=== PATIENT | female | born 1935 ===

== ENCOUNTER 2016-09-07 02:56 | Inpatient (IN) | payer MEDICARE ==
[2016-09-07 02:56] VITALS: BMI 23.8
--- NOTE | 2016-09-07 03:04 | C.PDOC ---
History Of Present Illness pt went to bed around 12:30 - 1 am. checked on her around 2:30 AM and found the pt with left arm weakness, left facial droop slurred speech and vomitus, Denies any cp. Pt has improved in the ed. Moves all extremities and speech is improved as well Time Seen by Provider: 09/07/16 03:04 History Per: Family History/Exam Limitations: no limitations Onset/Duration Of Symptoms: Hrs Current Symptoms Are (Timing): Better Severity: Moderate Pain Scale Rating Of: 5 Past Medical History Reviewed: Historical Data, Nursing Documentation, Vital Signs Vital Signs: Last Vital Signs Temp 100.0 F H 09/07/16 04:42 Pulse 105 H 09/07/16 05:43 Resp 16 09/07/16 05:43 BP 118/54 L 09/07/16 05:43 Pulse Ox 98 09/07/16 05:43 Family History: States: No Known Family Hx Review Of Systems Constitutional: Negative for: Fever, Chills Eyes: Negative for: Redness ENT: Negative for: Throat Pain Cardiovascular: Negative for: Chest Pain, Palpitations Respiratory: Negative for: Shortness of Breath Gastrointestinal: Positive for: Nausea, Vomiting. Negative for: Abdominal Pain Genitourinary: Negative for: Dysuria Musculoskeletal: Negative for: Back Pain Skin: Negative for: Rash, Lesions, Jaundice Neurological: Positive for: Weakness, Change in Speech Psych: Negative for: Anxiety Physical Exam - Physical Exam Appears: Non-toxic Skin: Warm, Dry Head: Atraumatic, Normacephalic Eye(s): bilateral: Normal Inspection, PERRL, EOMI Oral Mucosa: Moist Tongue: Normal Appearing Neck: Trachea Midline, Supple Chest: Symmetrical Cardiovascular: Rhythm Regular Respiratory: No Rales, No Rhonchi, No Wheezing Gastrointestinal/Abdominal: Soft, No Tenderness, No Distention Back: Normal Inspection Extremity: No Pedal Edema Extremity: Bilateral: Atraumatic, Normal Color And Temperature, Normal ROM Neurological/Psych: Oriented x3 Gait: Unable To Assess ED Course And Treatment - Laboratory Results Result Diagrams: 09/07/16 03:38 09/07/16 03:38 ECG: Interpreted By Me, Viewed By Me ECG Rhythm: Nonspecific Changes Pulse Ox Interpretation: Normal - Radiology CXR: Interpreted by Me, Viewed By Me CXR Interpretation: Yes: Cardiomegaly, Other (poss rll infiltrate) Progress Note: code stroke called Critical Care Time - Critical Care Note Total Time (in mins): 30 Documented critical care: time excludes all time spent performing seperately billable procedures. NIHSS Stroke Scale - Date/Time Evaluation Performed Date Performed: 09/07/16 Time Performed: 03:00 When Was NIHSS Performed: Baseline - How Severe is the Stroke Level of Consciousness: 0=Alert LOC to Questions: 0=Both comments correct LOC to commands: 0=Obeys both correctly Best Gaze: 0=Normal Visual: 0=No visual loss Facial: 1=Minor asymmetry Motor Arm - Left: 1=Drift noted before 10 sec Motor Arm - Right: 0=No drift Motor Leg - Left: 0=No drift Motor Leg - Right: 0=No drift Limb Ataxia: 0=Absent Sensory: 0=Normal Best Language: 0=No aphasia Dysarthia: 1=Mild to moderate slurring Extinction & Inattention (Neglect): 0=Normal, no object Score: 3 Disposition Discussed With : Candelario Rodrigues Comment: accepted the pt on his service and took over the care at 5:45 AM Doctor Will See Patient In The: ED Counseled Patient/Family Regarding: Studies Performed, Diagnosis - Disposition Disposition: HOSPITALIZED Disposition Time: 03:04 Condition: FAIR - POA Present On Arrival: Poor Glycemic Control - Clinical Impression Clinical Impression: TIA (transient ischemic attack), UTI (urinary tract infection), Renal insufficiency Decision To Admit - Pt Status Changed To: Hospital Disposition Of: Inpatient - Admit Certification Admit to Inpatient:: After my assessment, the patient will require hospitalization for at least two midnights. This is because of the severity of symptoms shown, intensity of services needed, and/or the medical risk in this patient being treated as an outpatient. - InPatient: Physician Admission Certification: I certify that this patient requires 2 or more midnights of care for the following reason:: After my assessment, the patient will require hospitalization for at least two midnights. This is because of the severity of symptoms shown, intensity of services needed, and/or the medical risk in this patient being treated as an outpatient. - . Bed Request Type: Telemetry Admitting Physician: Candelario Rodrigues Patient Diagnosis: TIA (transient ischemic attack), UTI (urinary tract infection), Renal insufficiency
[2016-09-07 03:42] LABS: BASO % 0.6 % (0.0-2.0); EOS # 0.1 K/uL (0.0-0.7); EOS % 1.3 % (0.0-4.0); HEMATOCRIT 32.1 % (34.0-47.0); LYMPH # 1.1 K/uL (1.0-4.3); LYMPH % 14.1 % (20.0-40.0); MEAN CELL VOLUME 98.7 fL (81.0-99.0); MEAN CORPUSCULAR HEMOGLOBIN 33.7 pg (27.0-31.0); MEAN CORPUSCULAR HGB CONC 34.2 g/dL (33.0-37.0); MEAN PLATELET VOLUME 7.5 fL (7.2-11.7); MONO # 0.6 K/uL (0.0-0.8); RED CELL DISTRIBUTION WIDTH 12.9 % (11.5-14.5); WHITE BLOOD COUNT 7.9 K/uL (4.8-10.8)
[2016-09-07 03:50] LABS: POTASSIUM 5.4 mmol/L (3.6-5.2)
[2016-09-07 03:52] LABS: BILIRUBIN,TOTAL 1.2 mg/dL (0.2-1.3)
[2016-09-07 03:53] LABS: CALCIUM 9.2 mg/dl (8.6-10.4)
[2016-09-07 04:04] LABS: TROPONIN I 0.013 ng/mL (0.00-0.120)
[2016-09-07] MEDS ORDERED: Piperacillin/Tazobact 3.375 gm 100 ML IVPB STA (04:41)
[2016-09-07 04:57] LABS: VENOUS BLOOD GAS BASE EXCESS -1.7 mmol/L (0.0-2.0); VENOUS BLOOD GAS PCO2 33 mmHg (40-60); VENOUS BLOOD PH 7.43 (7.32-7.43)
[2016-09-07 05:31] LABS: RBC URINE 175 /hpf (0-3); URINE BILIRUBIN NEGATIVE (NEGATIVE); URINE BLOOD 3+ (NEGATIVE); URINE COLOR Yellow (YELLOW); URINE GLUCOSE (UA) 3+ mg/dL (Normal); URINE KETONE NEGATIVE (NEGATIVE); URINE LEUKOCYTE ESTERASE 2+ Leu/uL (Negative); URINE PROTEIN 2+ mg/dL (NEGATIVE); URINE UROBILINOGEN NORMAL mg/dL (0.2-1.0); WBC URINE 2047 /hpf (0-5)
[2016-09-07] MEDS ORDERED: Piperacillin/Tazobact 3.375 gm 100 ML IVPB ONE (05:34)
--- NOTE | 2016-09-07 05:49 | CP.PCM.HP ---
History of Present Illness - History of Present Illness History of Present Illness: Please note history as per at bedside CC: She couldn't speak HPI: 81 year old female PMHx DM2, hyperlipidemia, hypothyroidism was brought in by EMS that was called by her when he noticed she was altered this AM. Patient's states that around 1:30 the morning of admission he noted that while his was lying down there was vomitus on her shirt [nonbloody nonbilious] and that she was unable to speak and could not move her arms, could not smile, and that her mouth was twisted. Patient was asymptomatic and had eaten a complete dinner an hour or two prior to the episode. She did not have a fall and did not have any LOC or hit her head as per . He reported this is the second time she has had such symptoms; the last "mini stroke" occured a coupe of years ago but did not know exactly when. He also noted that over he past 2-3 days she was having increased urinary frequency but kept complaining of some burning on urination and that her bladder was not emptying properly. Patient's denied noticing any blood in her urine/discharge. Patient was AO x [address] but not to time/age. She denied any chills , diaphoresis, dizziness, lightheadedness, change in vision, change in hearing, sore throat, dysphagia, chest pain, palpitations, SOB, cough, hematemesis, diarrhea, constipation, hematochezia, back pain, rash, bruising, bleeding, travel, sick contacts, change in weight, change in appetite. She admitted to fevers, weakness, frontal headache, abd pain, nausea, one episode of emesis, dysuria, frequency, and b/l leg pain. PMHx: PSHx: carotid endarterectomy by Dr. Thomas ALL: NKDA Medications: as per records Social Hx: denies current alcohol, tobacco, drug abuse. Lives with . 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 Family Hx: denies hx of [place], CVA, cancer PMD: [facility]: Code Stroke called in the ED Present on Admission - Present on Admission Any Indicators Present on Admission: Yes History of Uncontrolled Diabetes: Yes Review of Systems - Constitutional Constitutional: As Per HPI, Fever. absent: Chills - EENT Eyes: As Per HPI. absent: Change in Vision Ears: absent: Tinnitus, Dizziness Nose/Mouth/Throat: As Per HPI. absent: Nasal Discharge, Sore Throat - Cardiovascular Cardiovascular: As Per HPI. absent: Chest Pain, Dyspnea, Edema - Respiratory Respiratory: As Per HPI. absent: Cough, Dyspnea on Exertion, Chest Congestion - Gastrointestinal Gastrointestinal: As Per HPI, Abdominal Pain (lower abdominal pain), Nausea, Vomiting (one episode). absent: Constipation, Diarrhea - Genitourinary Genitourinary: As Per HPI, Dysuria, Urinary Frequency, Voiding Freq/Small Amts, Bladder Distension. absent: Hematuria, Pyuria - Musculoskeletal Musculoskeletal: As Per HPI. absent: Back Pain, Numbness, Tingling - Integumentary Integumentary: As Per HPI. absent: Rash - Neurological Neurological: As Per HPI, Abnormal Speech, Focal Weakness (b/l arms), Headaches (frontal), Weakness. absent: Dizziness, Numbness, Sensory Deficit, Syncope, Tingling - Psychiatric Psychiatric: As Per HPI. absent: Anxiety, Depression - Endocrine Endocrine: As Per HPI, Polyuria. absent: Palpitations, Polydipsia, Polyphagia - Hematologic/Lymphatic Hematologic: As Per HPI. absent: Easy Bleeding, Easy Bruising, Lymphadenopathy Past Patient History - Infectious Disease Hx of Infectious Diseases: None - Past Social History Smoking Status: Never Smoked - CARDIAC Hx Hypercholesterolemia: Yes - ENDOCRINE/METABOLIC Hx Diabetes Mellitus Type 1: Yes Hx Diabetes Mellitus Type 2: Yes Hx Hyperthyroidism: Yes - PSYCHIATRIC Hx Substance Use: No - SURGICAL HISTORY Hx Surgeries: No - ANESTHESIA Hx Anesthesia: No Meds Allergies/Adverse Reactions: Allergies Allergy/AdvReac Type Severity Reaction Status Date / Time No Known Allergies Allergy Verified 09/07/16 03:06 Physical Exam - Constitutional Appears: Non-toxic, No Acute Distress - Head Exam Head Exam: ATRAUMATIC, NORMAL INSPECTION, NORMOCEPHALIC - Eye Exam Eye Exam: EOMI, Normal appearance, PERRL. absent: Conjunctival injection, Scleral icterus Pupil Exam: NORMAL ACCOMODATION, PERRL - ENT Exam ENT Exam: Mucous Membranes Moist - Neck Exam Neck exam: Positive for: Full Rom, Normal Inspection. Negative for: Lymphadenopathy, Tenderness - Respiratory Exam Respiratory Exam: Clear to Auscultation Bilateral, NORMAL BREATHING PATTERN. absent: Accessory Muscle Use, Rales, Rhonchi, Wheezes, Respiratory Distress - Cardiovascular Exam Cardiovascular Exam: Tachycardia, REGULAR RHYTHM, +S1, +S2, Systolic Murmur - GI/Abdominal Exam GI & Abdominal Exam: Normal Bowel Sounds, Soft, Tenderness (lower abdomen). absent: Firm, Guarding, Rigid Additional comments: surgical scar noted - Extremities Exam Extremities exam: Positive for: normal capillary refill, normal inspection, pedal pulses present. Negative for: pedal edema - Back Exam Back exam: NORMAL INSPECTION. absent: rash noted, tenderness Additional comments: abrasions noted - Neurological Exam Neurological exam: Alert (AO x 2), CN II-XII Intact - Psychiatric Exam Psychiatric exam: Normal Affect, Normal Mood - Skin Skin Exam: Dry, Intact, Normal Color, Warm Results - Vital Signs Recent Vital Signs: Last Vital Signs Temp 100.0 F H 09/07/16 04:42 Pulse 105 H 09/07/16 05:43 Resp 16 09/07/16 05:43 BP 118/54 L 09/07/16 05:43 Pulse Ox 98 09/07/16 05:43 - Labs Result Diagrams: 09/07/16 03:38 09/07/16 03:38 Labs: Laboratory Results - last 24 hr 09/07/16 09/07/16 09/07/16 03:38 03:38 03:38 WBC 7.9 RBC 3.25 L Hgb 11.0 Hct 32.1 L MCV 98.7 D MCH 33.7 H MCHC 34.2 RDW 12.9 Plt Count 212 MPV 7.5 Neut % (Auto) 77.0 H Lymph % (Auto) 14.1 L [place] % (Auto) 7.0 Eos % (Auto) 1.3 Baso % (Auto) 0.6 Neut # 6.1 Lymph # 1.1 [place] # 0.6 Eos # 0.1 Baso # 0.0 PT 11.3 INR 1.0 APTT 23 pO2 VBG pH VBG pCO2 VBG HCO3 VBG Total CO2 VBG O2 Sat (Calc) VBG Base Excess VBG Potassium Glucose Lactate Crit Value Called To Crit Value Called By Crit Value Read Back Blood Gas Notified Time Sodium 136 Potassium 5.4 H Chloride 103 Carbon Dioxide 21 L Anion Gap 17 BUN 37 H Creatinine 1.4 H Est GFR ( Amer) 44 Est GFR (Non-Af Amer) 36 Random Glucose 367 H Hemoglobin A1c Calcium 9.2 Total Bilirubin 1.2 AST 25 ALT 23 Alkaline Phosphatase 123 Troponin I 0.0130 Total Protein 8.0 Albumin 3.9 Globulin 4.1 H Albumin/Globulin Ratio 1.0 Triglycerides 127 Cholesterol 142 LDL Cholesterol Direct 83 HDL Cholesterol 27 L Venous Blood Potassium Urine Color Urine Clarity Urine pH Ur Specific [employer] Urine Protein Urine Glucose (UA) Urine Ketones Urine Blood Urine Nitrate Urine Bilirubin Urine Urobilinogen Ur Leukocyte Esterase Urine WBC (Auto) Urine RBC (Auto) Blood Type Antibody Screen 09/07/16 09/07/16 09/07/16 03:38 03:55 04:48 WBC RBC Hgb Hct MCV MCH MCHC RDW Plt Count MPV Neut % (Auto) Lymph % (Auto) [place] % (Auto) Eos % (Auto) Baso % (Auto) Neut # Lymph # [place] # Eos # Baso # PT INR APTT pO2 39 VBG pH 7.43 VBG pCO2 33 L VBG HCO3 23.0 VBG Total CO2 22.9 VBG O2 Sat (Calc) 84.5 H VBG Base Excess -1.7 L VBG Potassium 5.2 Glucose 356 H Lactate 1.5 Crit Value Called To Md sarah browne Crit Value Called By R alert automotive service advisor Crit Value Read Back Y Blood Gas Notified Time 458 Sodium 138.0 Potassium Chloride 108.0 H Carbon Dioxide Anion Gap BUN Creatinine Est GFR ( Amer) Est GFR (Non-Af Amer) Random Glucose Hemoglobin A1c 9.6 H Calcium Total Bilirubin AST ALT Alkaline Phosphatase Troponin I Total Protein Albumin Globulin Albumin/Globulin Ratio Triglycerides Cholesterol LDL Cholesterol Direct HDL Cholesterol Venous Blood Potassium 5.2 Urine Color Urine Clarity Urine pH Ur Specific [employer] Urine Protein Urine Glucose (UA) Urine Ketones Urine Blood Urine Nitrate Urine Bilirubin Urine Urobilinogen Ur Leukocyte Esterase Urine WBC (Auto) Urine RBC (Auto) Blood Type B POSITIVE Antibody Screen Negative 09/07/16 05:23 WBC RBC Hgb Hct MCV MCH MCHC RDW Plt Count MPV Neut % (Auto) Lymph % (Auto) [place] % (Auto) Eos % (Auto) Baso % (Auto) Neut # Lymph # [place] # Eos # Baso # PT INR APTT pO2 VBG pH VBG pCO2 VBG HCO3 VBG Total CO2 VBG O2 Sat (Calc) VBG Base Excess VBG Potassium Glucose Lactate Crit Value Called To Crit Value Called By Crit Value Read Back Blood Gas Notified Time Sodium Potassium Chloride Carbon Dioxide Anion Gap BUN Creatinine Est GFR ( Amer) Est GFR (Non-Af Amer) Random Glucose Hemoglobin A1c Calcium Total Bilirubin AST ALT Alkaline Phosphatase Troponin I Total Protein Albumin Globulin Albumin/Globulin Ratio Triglycerides Cholesterol LDL Cholesterol Direct HDL Cholesterol Venous Blood Potassium Urine Color Yellow Urine Clarity Turbid Urine pH 7.0 Ur Specific [employer] 1.009 Urine Protein 2+ H Urine Glucose (UA) 3+ H Urine Ketones Negative Urine Blood 3+ H Urine Nitrate Negative Urine Bilirubin Negative Urine Urobilinogen Normal Ur Leukocyte Esterase 2+ H Urine WBC (Auto) 2047 H Urine RBC (Auto) 175 H Blood Type Antibody Screen Assessment & Plan - Assessment and Plan (Free Text) Assessment: 81 year old female PMHx DM2, hyperlipidemia, hypothyroidism was brought in by EMS that was called by her when he noticed she was altered this AM Plan: TIA vs CVA -f/u Head CT official read -f/u Echo -f/u carotids -f/u vit B12, folate, 25OH vitamin D -Lipid panel WNL -ASA 81mg po daily -Crestor 10mg po hs -NPO -Speech/swallow eval -Fall risk -Aspiration precautions -PT/OT -Neurocheck q4 -f/u Dr Sullivan neurology rec UTI -f/u urine culture -f/u blood culture -Rocephin 1gm ivpb daily -NS @ 80cc/hr -Tylenol for temp prn -f/u CT abdomen/pelvis Uncontrolled DM2 -HgbA1c 9.6 on admission -RISS meduim dose -Accucheck -Glipizide 10mg po bid -Neurontin 300mg po bid -Lantus 15U hs Hx Hypercholesterolemia -Lipid panel WNL on admission -Crestor 10mg po hs Hx Hypothyroidism -f/u TSH and free T4 -Synthroi 100mg po daily PPX -Protonix 40mg ivp daily -SCD -VTE ppx on hold until CT head is read -NPO -Speech/swallow eval -Fall risk -Aspiration precautions -PT/OT -Neurocheck q4 -NS @ 80cc/hr Case discussed with Dr. Ravi Arellano PGY1
--- NOTE | 2016-09-07 07:45 | CT ---
PROCEDURE: CT HEAD WITHOUT CONTRAST. HISTORY: code stroke COMPARISON: 09/08/2012 TECHNIQUE: Axial computed tomography images were obtained through the head/brain without intravenous contrast. Radiation dose: Total exam DLP = 942 mGy-cm. This CT exam was performed using one or more of the following dose reduction techniques: Automated exposure control, adjustment of the mA and/or kV according to patient size, and/or use of iterative reconstruction technique. FINDINGS: HEMORRHAGE: No intracranial hemorrhage. BRAIN: Atrophy. Scattered focal lucencies in the subcortical and periventricular white matter suggestive for chronic microvascular ischemic change. Small hypodensity in the right thalamus and left caudate head suggestive for a lacunar infarct. VENTRICLES: Unremarkable. No hydrocephalus. CALVARIUM: Unremarkable. PARANASAL SINUSES: Unremarkable as visualized. No significant inflammatory changes. MASTOID AIR CELLS: Unremarkable as visualized. No inflammatory changes. OTHER FINDINGS: Study markedly limited by motion artifact. Repeat study may be helpful. Intracranial vascular calcifications noted. IMPRESSION: Study markedly limited by motion artifact. Repeat study may be helpful. Age related atrophy and chronic small vessel ischemic change. 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 If focal neurologic deficit persists, consider MRI. These findings were preliminarily reported at 3:41 a.m. on 09/07/[address] Jaspreet Courtney from [employer]. These findings were relayed to Dr. Gilmore at 3:45 a.m. on 09/07/[address] Jaspreet Courtney.
[2016-09-07] MEDS ORDERED: Sod Polystyrene Sulf 15 gm/60 ml Oral Susp PO ONE (07:49)
--- NOTE | 2016-09-07 09:19 | CP.PCM.PN ---
Subjective - Date & Time of Evaluation Date of Evaluation: 09/07/16 Time of Evaluation: 09:00 - Subjective Subjective: Pt seen and examined at bedside. Pt is comfortable and in no acute distress. She is a little slow in her responses, but is not far from her baseline as per her , who is present at bedside. Pt states that she is feeling better and that she is eating and sleeping well. She complains that the colmenares is uncomfortable and giving her some pain in her lower abdomen. She has no other complaints. Pt denies dizziness, fever, chills, chest pain, palpitations, nausea , vomiting, leg swelling/pain. Objective - Vital Signs/Intake and Output Vital Signs (last 24 hours): Temp Pulse Resp BP Pulse Ox 99.3 F 106 H 18 97/60 L 96 09/07/16 07:35 09/07/16 07:35 09/07/16 07:35 09/07/16 07:35 09/07/16 07:35 - Medications Medications: Current Medications Acetaminophen (Tylenol 325mg Tab) 650 mg PO Q6 PRN PRN Reason: Fever >100.4 F Aspirin (Aspirin Chewable) 81 mg PO DAILY CAMRYN Gabapentin (Neurontin) 300 mg PO BID [facility] Glipizide (Glucotrol) 10 mg PO ACB [facility] Last Admin: 09/07/16 08:57 Dose: 10 mg Ceftriaxone Sodium 1 gm/ (Sodium Chloride) 100 mls @ 100 mls/hr IVPB DAILY [facility]N Sodium Chloride (Sodium Chloride 0.9%) 1,000 mls @ 80 mls/hr IV .[id number] [facility] Insulin Aspart (Novolog) 0 unit SC ACHS [facility] PRN Reason: Protocol Insulin Glargine (Lantus) 15 unit SC HS [facility] Levothyroxine Sodium (Synthroid) 100 mcg PO DAILY@0630 [facility] Pantoprazole Sodium (Protonix Inj) 40 mg IVP DAILY [facility] Rosuvastatin Calcium (Crestor) 10 mg PO HS CAMRYN - Labs Labs: PT 11.3 SECONDS (9.7-12.2) 09/07/16 03:38 INR 1.0 09/07/16 03:38 APTT 23 SECONDS (21-34) 09/07/16 03:38 - Constitutional Appears: Non-toxic, No Acute Distress - Head Exam Head Exam: ATRAUMATIC, NORMOCEPHALIC Additional comments: slight droop at L corner of mouth - Eye Exam Eye Exam: EOMI, Normal appearance. absent: Scleral icterus Pupil Exam: NORMAL ACCOMODATION, PERRL - ENT Exam ENT Exam: Mucous Membranes Moist - Respiratory Exam Respiratory Exam: Clear to Ausculation Bilateral, NORMAL BREATHING PATTERN. absent: Rales, Rhonchi, Wheezes, Respiratory Distress - Cardiovascular Exam Cardiovascular Exam: Tachycardia, REGULAR RHYTHM, +S1, +S2, Murmur Additional comments: holosystolic murmur best heard at R sternal border - GI/Abdominal Exam GI & Abdominal Exam: Soft, Tenderness, Normal Bowel Sounds. absent: Distended, Firm, Guarding Additional comments: suprapubic tenderness - Extremities Exam Extremities Exam: Normal Inspection. absent: Pedal Edema, Tenderness - Neurological Exam Neurological Exam: Alert, Awake, CN II-XII Intact, Normal Gait Neuro motor strength exam: Left Upper Extremity: 5, Right Upper Extremity: 5, Left Lower Extremity: 5, Right Lower Extremity: 5 Additional comments: oriented x 2. Able to state name and that she is in the hospital. Unable to state the year but can recall the name of the president with some help from the - Psychiatric Exam Psychiatric exam: Normal Affect, Normal Mood - Skin Skin Exam: Dry, Intact, Normal Color, Warm Assessment and Plan - Assessment and Plan (Free Text) Assessment: Assessment: 81 year old female PMHx DM2, hyperlipidemia, hypothyroidism was brought in by EMS that was called by her when he noticed she was altered this AM Plan: TIA vs CVA Symptoms have resolved more likely TIA - Head CT - age related atrophy and chronic small vessel ischemic change. Small lacunar infarcts in the right thalamus and left caudate head. - f/u MRI -f/u Echo -f/u carotid dopplers -f/u vit B12, folate, 25OH vitamin D -Lipid panel WNL -ASA 81mg po daily -Crestor 10mg po hs -Speech/swallow eval - passed bedside swallow eval -Fall risk -Aspiration precautions -PT/OT -Neurocheck q4 -f/u Dr Jeane Flaherty neurology recs UTI -f/u urine culture -f/u blood culture -Rocephin 1gm ivpb daily -NS @ 80cc/hr -Tylenol for temp prn - CT abdomen/pelvis: multiple vascular calcifications within both renal pelvis No evidence of hydronephrosis. Many Clamped colmenares. diverticulosis witout radiologic evidence of diverticulitis. - Discontinue Colmenares Uncontrolled DM2 -HgbA1c 9.6 on admission -RISS medium dose -Accucheck -Glipizide 10mg po bid -Neurontin 300mg po bid -Lantus 15U hs Hx Hypercholesterolemia -Lipid panel WNL on admission -Crestor 10mg po hs Hx Hypothyroidism -f/u TSH and free T4 -Synthroid 100mg po daily PPX -Protonix 40mg ivp daily -SCD -NS @ 80cc/hr
[2016-09-07] MEDS: Sodium Chloride 0.9% 1,000 ML IV SCH (09:23)
--- NOTE | 2016-09-07 10:39 | CT ---
PROCEDURE: CT abdomen and pelvis dated 09/07/2016. HISTORY: r/o nephrolithiasis COMPARISON: Comparison made with renal ultrasound 06/27/2012 TECHNIQUE: Contiguous axial images of the abdomen and pelvis. Oral contrast was administered. No IV contrast given. Coronal and Sagittal reformats generated. Radiation dose: Total exam DLP = 1023.4 mGy-cm. This CT exam was performed using one or more of the following dose reduction techniques: Automated exposure control, adjustment of the mA and/or kV according to patient size, and/or use of iterative reconstruction technique. FINDINGS: LOWER THORAX: Mild bibasilar atelectasis and or scarring changes. Small hiatal hernia with wall thickening of the distal esophagus that could be due to of gastric mucosa. Esophagitis or other intrinsic/invasive wall lesion not excluded. Heart size within range normal. No significant pericardial effusion. Coronary artery calcifications. Calcified mitral valve. LIVER: The liver exhibits normal size measuring nearly 13 cm in CC dimension. No obvious hepatic mass or collection identified on this noncontrast study. GALLBLADDER AND BILE DUCTS: Gallbladder has resected metallic clips in the gallbladder fossa. No gross intrahepatic biliary ductal dilatation. PANCREAS: Pancreas is atrophic and fat replaced. SPLEEN: Spleen exhibits normal size and attenuation pattern. 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 ADRENALS: No adrenal lesions. KIDNEYS AND URETERS: Kidneys demonstrate relatively symmetric size. The multiple small calcifications within both renal hilar most of which are felt to be vascular in origin ; a few tiny nonobstructing calculi cannot completely excluded. No evidence of hydronephrosis . Minor nonspecific infiltration changes within the perinephric fat bilaterally present. BLADDER: In situ unclamped Montanez catheter. Urinary bladder is collapsed about Montanez which presumably accounts for thick-walled appearance however the possibility of cystitis or other intrinsic/ invasive wall lesion (including but not limited to carcinoma such as transitional cell, not excluded. Clinical correlation recommended. Intraluminal urinary bladder likely due to recent instrumentation however infection with gas-forming organism cannot be excluded. . Intra lumen urinary bladder air likely due to instrumentation. REPRODUCTIVE: Uterus appears unremarkable. APPENDIX: Normal-appearing appendix. BOWEL: Evaluation of bowel is limited. Hyperdense material is present within stomach. Visualized loops of small bowel exhibit normal contour and caliber. No evidence acute mechanical small bowel obstruction. . Diverticulosis without radiographic evidence of acute diverticulitis. No definitive abnormal mural wall thickening. PERITONEUM: Unremarkable. No fluid collection. No free air. Small fat containing paraumbilical hernia. LYMPH NODES: No significant abdominal or retroperitoneal adenopathy. VASCULATURE: Unremarkable. No aortic aneurysm. BONES: Mild multilevel degenerative spondylosis of the lower thoracic and lumbar spine OTHER FINDINGS: None. IMPRESSION: There are multiple vascular calcifications within both renal pelves. . A few tiny nonobstructing renal calculi cannot be completely. No evidence hydronephrosis. In situ unclamped Montanez catheter which may in part account thick-walled appearance however cystitis or other intrinsic/invasive wall lesion as indicated above not. Clinical correlation recommended. There is also air within the urinary bladder that may be is recent instrumentation however infection with gas-forming organism not excluded. Status post cholecystectomy. Diverticulosis without radiographic evidence of diverticulitis. Above discussion for additional findings and details.
--- NOTE | 2016-09-07 11:10 | RAD ---
HISTORY: tia COMPARISON: 09/08/2012 FINDINGS: LUNGS: Shallow lung volume more so than before. No consolidation PLEURA: No significant pleural effusion identified, no pneumothorax apparent. CARDIOVASCULAR: Mild cardiomegaly left ventricular enlargement suggested. Pulmonary vasculature appears top consistent with crowding of vessels OSSEOUS STRUCTURES: Thoracic spondylosis and generalized osteopenia VISUALIZED UPPER ABDOMEN: Normal. OTHER FINDINGS: There is a metallic device projecting over the lateral left hemithorax temporal this relates to a light year or this is a cardiac monitoring device no leads going from it are appreciated It is an interval changeEKG leads in place IMPRESSION: Shallow lung volumes. No interval cardiopulmonary pathology seen
[2016-09-07 12:20] LABS: THYROID STIMULATING HORMONE 0.17 mIU/L (0.46-4.68)
[2016-09-07 12:55] LABS: FOLATE 19.5 ng/mL
[2016-09-07] MEDS: (Novolog) Insulin Aspart, Recombinant 100 u/ml 10 ml vial SC SCH ×4 (13:44→21:30)
--- NOTE | 2016-09-07 14:12 | CARD ---
APPROVED REPORT EXAM: Two-dimensional and M-mode echocardiogram with Doppler and color Doppler. Other Information Quality : GoodRhythm : NSR INDICATION CVA/TIA Murmur FEVER UTI RISK FACTORS Hypertension Diabetes M-Mode DIMENSIONS RVDd1.20 (2.1-3.2cm)Left Atrium (MM)3.51 (2.5-4.0cm) IVSd0.75 (0.7-1.1cm)Aortic Root2.66 (2.2-3.7cm) LVDd3.90 (4.0-5.6cm)Aortic Cusp Exc.1.41 (1.5-2.0cm) PWd0.78 (0.7-1.1cm)FS (%) 24 % LVDs2.96 (2.0-3.8cm)LVEF (%)49 (>50%) Aortic Valve AoV Peak Xqfhmtxr655.7cm/Jamel Peak GR.14mmHg Mitral Valve MV E Uyfgdudf205.2cm/sMV A Nsjhlnit68.7cm/sE/A ratio4.1 TDI E/Lateral E'0.0E/Medial E'0.0 Tricuspid Valve TR Peak Wqcdvaob026gx/sTR Peak Gr.39bdMkQHDN22ogEd LEFT VENTRICLE The left ventricle is normal size. There is normal left ventricular wall thickness. The left ventricular function is normal. The left ventricular ejection fraction is within the normal range. About 65% No regional wall motion abnormalities noted. The left ventricular diastolic function is inconclusive. No left ventricle thrombus noted on this study. There is no ventricular septal defect visualized. There is no left ventricular aneurysm. There is no mass noted in the left ventricle. RIGHT VENTRICLE The right ventricle is normal size. There is normal right ventricular wall thickness. The right ventricular systolic function is normal. ATRIA The left atrium size is normal. The right atrium size is normal. The interatrial septum is intact with no evidence for an atrial septal defect. AORTIC VALVE The aortic valve is normal in structure and function. No aortic regurgitation is present. The aortic valve was poorly imaged by the technolgoist and not seen. Peak gradient throught the valve is normal. There is no aortic valvular vegetation. MITRAL VALVE The mitral valve is normal in structure and function. There is no evidence of mitral valve prolapse. There is no mitral valve stenosis. There is no mitral valve regurgitation noted. TRICUSPID VALVE The tricuspid valve is normal in structure and function. There is mild tricuspid valve regurgitation noted. There is no tricuspid valve prolapse or vegetation. There is no tricuspid valve stenosis. PULMONIC VALVE The pulmonary valve is normal in structure and function. There is no pulmonic valvular regurgitation. There is no pulmonic valvular stenosis. GREAT VESSELS The aortic root is normal in size. The ascending aorta is normal in size. The pulmonary artery is normal. The IVC is normal in size and collapses >50% with inspiration. PERICARDIAL EFFUSION The pericardium appears normal. There is no pleural effusion. <Conclusion> Normal LV systolic function Normal Doppler The aortic valve was poorly imaged by the technolgoist and not seen. Peak gradient throught the valve is normal. If murmur is present, elliotl repeat aortic valve assessment.
--- NOTE | 2016-09-07 14:54 | VASCLAB ---
PROCEDURE: HISTORY: r/o stenosis COMPARISON: None available. TECHNIQUE: Grayscale and duplex Doppler evaluation of the cervical carotid and vertebral arteries were performed. The common carotid, carotid bifurcations and cervical Internal Carotid Artery (ICA) and proximal External Carotid Artery (ECA) were evaluated. The vertebral arteries were evaluated for gross patency and flow direction. Report prepared by Jemima Menezes, VANESSA, S FINDINGS: RIGHT CAROTID ARTERIES: 1. Common Carotid Artery: No significant focal plaque formation of the right common carotid artery. Maximum Peak Systolic velocity: 101.6 cm/sec: End-diastolic velocity 20 cm/sec. 2. Carotid Bifurcation: plaque formation. Maximum Peak Systolic velocity: 96.8 cm/sec: End-diastolic velocity 17.6 cm/sec. 3. Internal Carotid Artery: Plaque description: Homogeneous 3.1. Proximal Segment: Peak systolic velocity 153 cm/sec: End-diastolic velocity 30 cm/sec - % stenosis 50-60% 3.2. Middle Segment: Peak systolic velocity 220 cm/sec: End-diastolic velocity 58 cm/sec - % stenosis 60-70% 3.3. Distal Segment: Peak systolic velocity 104 cm/sec: End-diastolic velocity 25 cm/sec - % stenosis 4. External Carotid Artery: No significant focal plaque formation. Peak systolic velocity 244 cm/sec 5. ICA/CCA Ratio: 2.7 LEFT CAROTID ARTERIES: 1. Common Carotid Artery: No significant focal plaque formation of the left common carotid artery. Maximum Peak Systolic velocity: 104 cm/sec: End-diastolic velocity 20 cm/sec. 2. Carotid Bifurcation: plaque formation. Maximum Peak Systolic velocity: 102 cm/sec: End-diastolic velocity 18 cm/sec. 3. Internal Carotid Artery: Plaque description: 3.1. Proximal Segment: Peak systolic velocity 118 cm/sec: End-diastolic velocity 23 cm/sec - % stenosis 3.2. Middle Segment: Peak systolic velocity 121 cm/sec: End-diastolic velocity 25 cm/sec - % stenosis 3.3. Distal Segment: Peak systolic velocity 104 cm/sec: End-diastolic velocity 25 cm/sec - % stenosis 4. External Carotid Artery: No significant focal plaque formation. Peak systolic velocity 151 cm/sec 5. ICA/CCA Ratio: 1.2 VERTEBRAL ARTERIES: 1. Right Vertebral Artery: The right vertebral artery flow direction is antegrade. 2. Left Vertebral Artery: The left vertebral artery flow direction is antegrade. OTHER FINDINGS: 1. Right Brachial Blood pressure: 97 mmHg. 2. Left Brachial Blood pressure: 100 mmHg. IMPRESSION: RIGHT:50-60% stenosis of the proximal and 60-70% stenosis of the mid right internal carotid artery. LEFT: Duplex scan does not suggest hemodynamically significant stenosis of the left extracranial carotid arteries.
--- NOTE | 2016-09-07 17:13 | CON ---
DATE: 09/07/2016 CHIEF COMPLAINT: Altered mental status. 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 Today came in to the hospital because she was noted be altered. It was noticed by the that she was lying down. There was some vomitus on her shirt, was un able to speak and could not move her arms and had generalized weakness. She did not have any fall, d id not lose any consciousness. She was found to have elevated systolic blood pressures and hyperglyc emia of 367 and elevated BUN and creatinine as well as hyperkalemia. She was also found to have a ur inary tract infection. Currently, she is sitting up and moving all extremities fully. No pronator d rift is seen. She is following simple commands. No aphasia noted. MRI brain is currently pending. Carotid Doppler showed right carotid artery, moderate disease and the left side 20% to 39%. PAST MEDICAL HISTORY: Diabetes, hypertension, hyperlipidemia, hyperthyroidism. PAST SURGICAL HISTORY: Carotid endarterectomy. ALLERGIES: No known drug allergies. SOCIAL HISTORY: No illicit drug use, smoking, or EtOH abuse. FAMILY HISTORY: Noncontributory. MEDICATIONS: Reviewed via nurse's reconciliation sheet. REVIEW OF SYSTEMS: A 14-point review of systems is negative except for the HPI. PHYSICAL EXAMINATION: VITAL SIGNS: Temperature of 98.3, pulse rate of 102, blood pressure 152/67, respiratory rate 20, oxy gen saturation 100% via room air. GENERAL: The patient is sitting up in bed in no acute distress. HEENT: Atraumatic, normocephalic. PERRLA. Extraocular muscles intact. NECK: Supple, no JVD, no adenopathy noted. LUNGS: Clear to auscultation. No adventitious sounds. HEART: S1, S2, normal rate and rhythm. No murmurs, rubs, or gallops. ABDOMEN: Soft, nontender, nondistended. Bowel sounds are present. EXTREMITIES: No clubbing, no cyanosis. Peripheral pulses 2+ felt bilaterally. NEUROLOGIC: The patient is alert, oriented to person, place, month and year. Speech is fluent, with out any errors. Cranial nerves II-XII are intact. MOTOR: Moves all extremities equally. Toes downgoing bilaterally. SENSORY: Decreased light touch and pinprick up to the calves bilaterally. DTRs are 1+ and absent at the ankles. COORDINATION: Rcmtvy-ur-fksm intact. GAIT: Deferred for now. LABORATORY DATA: On the UA, leukocyte esterase is 2+ consistent with urinary tract infection. A1c i s 9.6 indicating poorly controlled diabetes. Sodium is 136, potassium 5.4, chloride of 103, carbon d ioxide 21, BUN of 37, creatinine 1.4, random glucose 367. B12 is more than 1000. TSH is 0.72, which is low. ASSESSMENT AND PLAN: This is an 81-year-old woman with history of type 2 diabetes mellitus, hyperten mitzi, hyperthyroidism and carotid artery disease, who presented with altered mental status, was not moving all the extremities and generally lethargic according to the and was unable to get out words and could not move her arms and generalized weakness. She was found to be hyperglycemic w ith hyperkalemia as well as acute on chronic renal insufficiency with an A1c of 9.6 indicating poorly controlled diabetes with hypertensive urgency, in which her blood pressures have transiently dropped too fast, which was today 97/60 making her fairly drowsy. Currently, her neuro exam is nonfocal. S he has diabetic peripheral neuropathy on examination, is very deconditioned. No pronator drift is se en. No neurological signs presenting to her stroke at this time. Her altered mental status is likel y secondary to a metabolic type of encephalopathy, superimposed underlying urinary tract infection. She had hyperkalemia and elevated BUN and creatinine and hyperglycemic accelerations causing her to b e generally weak and altered and causing difficulty getting out words. It could be a questionable tr ansient ischemic event. At this time, recommend: 1. Continue with aspirin 81 mg and Crestor 10 mg for stroke prevention. 2. Keep the blood glucose levels between 141-180 and give diabetic education and prevent hyperglycem ic accelerations the patient. 3. Continue with gabapentin 300 mg p.o. b.i.d. for neuropathic pain relief. 4. Physical and occupational therapy and likely will benefit from subacute rehab. MRI of the brain is currently pending. Please continue with current present medical management. No further neurologi billy workup needed at this time. Thank you for this consult. Please reconsult if necessary. T Tay Flaherty MD cc: [id number] TT: 09/07/2016 17:12:55 Confirmation # [id number] Dictation # [id number] mn
--- NOTE | 2016-09-07 20:24 | CT ---
EXAM: CT Head Without Intravenous Contrast CLINICAL HISTORY: 81 years old, female; Signs and symptoms; Altered mental status/memory loss; Patient HX: F/u code stroke on 09/07/16. At 400 am; Additional info: Change mental status TECHNIQUE: Axial computed tomography images of the head/brain without intravenous contrast. This CT exam was performed using one or more of the following dose reduction techniques: automated exposure control, adjustment of the mA and/or kV according to patient size, and/or use of iterative reconstruction technique. COMPARISON: CT - HEAD W/O (CODE STROKE) 09/07/2016 3:18:57 AM FINDINGS: Brain: Prominence of the sulci and ventricular system consistent with atrophy. Diffuse hypodensity noted throughout the white matter consistent with chronic small vessel disease. No intracranial mass, mass effect, or midline shift. No hemorrhage. Ventricles: No hydrocephalus. Bones/joints: Unremarkable. No acute fracture. Soft tissues: Unremarkable. Sinuses: Unremarkable as visualized. No acute sinusitis. Mastoid air cells: Unremarkable as visualized. No mastoid effusion. IMPRESSION: No acute intracranial abnormality.
[2016-09-07] MEDS: (Lantus) Insulin Glargine, Recombinant SC SCH (22:00)
[2016-09-08] MEDS: Levothyroxine 100 MCG TAB PO SCH (06:35)
[2016-09-08 08:24] LABS: BASO # 0.1 K/uL (0.0-0.2); BASO % 0.6 % (0.0-2.0); EOS # 0.1 K/uL (0.0-0.7); HEMATOCRIT 28.3 % (34.0-47.0); LYMPH % 19.1 % (20.0-40.0); MEAN CORPUSCULAR HEMOGLOBIN 33.9 pg (27.0-31.0); MEAN CORPUSCULAR HGB CONC 33.7 g/dL (33.0-37.0); MEAN PLATELET VOLUME 7.6 fL (7.2-11.7); MONO # 0.9 K/uL (0.0-0.8); MONO % 8.9 % (0.0-10.0); RED CELL DISTRIBUTION WIDTH 13.2 % (11.5-14.5); WHITE BLOOD COUNT 10.5 K/uL (4.8-10.8)
[2016-09-08 08:25] LABS: MEAN CELL VOLUME 100.7 fL (81.0-99.0)
[2016-09-08] MEDS: (Novolog) Insulin Aspart, Recombinant 100 u/ml 10 ml vial SC SCH ×4 (08:34→21:22)
[2016-09-08 08:42] LABS: POTASSIUM 3.8 mmol/L (3.6-5.2)
[2016-09-08 08:45] LABS: ALB/GLOB RATIO 0.9 (1.0-2.1); PHOSPHOROUS 4.1 mg/dL (2.5-4.5); TOTAL PROTEIN 6.6 g/dL (6.3-8.3)
[2016-09-08 08:46] LABS: CALCIUM 8.2 mg/dl (8.6-10.4); MAGNESIUM 2.3 mg/dL (1.6-2.3)
--- NOTE | 2016-09-08 12:25 | CP.PCM.PN ---
<Lizabeth Rogel - Last Filed: 09/08/16 14:38> Subjective - Date & Time of Evaluation Date of Evaluation: 09/08/16 Time of Evaluation: 07:35 - Subjective Subjective: Pt seen and examined at bedside. Pt is comfortable and in no acute distress. She is a little slow in her responses, but is not far from her baseline as per her , who is present at bedside. She was a lot more responsive and answering questions this morning. Pt states that she is feeling better today. She has no other complaints and states that she does not have any burning with urination. She is able to urinate well. Pt denies dizziness, fever, chills, chest pain, palpitations, nausea, vomiting, leg swelling/pain. The patient's was able to call the sound system installer who placed the loop recorder for the patient. It is [email or web address] and is MRI safe according to their office. Patient will have an MRI of the head done today. Objective - Vital Signs/Intake and Output Vital Signs (last 24 hours): Temp Pulse Resp BP Pulse Ox 99.3 F 95 H 18 134/70 96 09/08/16 07:25 09/08/16 07:25 09/08/16 07:25 09/08/16 07:25 09/08/16 07:25 Intake and Output: 09/08/16 09/08/16 06:59 18:59 Intake Total 640 Balance 640 - Medications Medications: Current Medications Acetaminophen (Tylenol 325mg Tab) 650 mg PO Q6 PRN PRN Reason: Fever >100.4 F Aspirin (Aspirin Chewable) 81 mg PO DAILY [facility] Last Admin: 09/08/16 10:43 Dose: Not Given Gabapentin (Neurontin) 300 mg PO BID [facility] Last Admin: 09/08/16 10:43 Dose: Not Given Glipizide (Glucotrol) 10 mg PO ACB [facility] Last Admin: 09/08/16 08:32 Dose: Not Given Ceftriaxone Sodium 1 gm/ (Sodium Chloride) 100 mls @ 100 mls/hr IVPB DAILY [facility] Last Admin: 09/08/16 10:49 Dose: 100 mls/hr Sodium Chloride (Sodium Chloride 0.9%) 1,000 mls @ 80 mls/hr IV .[id number] [facility] Last Admin: 09/07/16 09:23 Dose: 80 mls/hr Insulin Aspart (Novolog) 0 unit SC [facility] PRN Reason: Protocol Last Admin: 09/08/16 08:34 Dose: Not Given Insulin Glargine (Lantus) 15 unit SC [facility] Last Admin: 09/07/16 22:00 Dose: Not Given Levothyroxine Sodium (Synthroid) 100 mcg PO DAILY@0630 [facility] Last Admin: 09/08/16 06:35 Dose: Not Given Pantoprazole Sodium (Protonix Inj) 40 mg IVP DAILY [facility] Last Admin: 09/08/16 10:48 Dose: 40 mg Rosuvastatin Calcium (Crestor) 10 mg PO [facility] Last Admin: 09/07/16 22:00 Dose: Not Given - Labs Labs: 09/08/16 08:15 09/08/16 08:15 PT 11.3 SECONDS (9.7-12.2) 09/07/16 03:38 INR 1.0 09/07/16 03:38 APTT 23 SECONDS (21-34) 09/07/16 03:38 - Constitutional Appears: Non-toxic, No Acute Distress - Head Exam Head Exam: ATRAUMATIC, NORMAL INSPECTION - Eye Exam Eye Exam: EOMI, Normal appearance, PERRL Pupil Exam: NORMAL ACCOMODATION - ENT Exam ENT Exam: Mucous Membranes Moist - Respiratory Exam Respiratory Exam: Clear to Ausculation Bilateral, NORMAL BREATHING PATTERN. absent: Accessory Muscle Use, Decreased Breath Sounds, Respiratory Distress - Cardiovascular Exam Cardiovascular Exam: REGULAR RHYTHM, +S1, +S2 Additional comments: loop recorder in place under skin - GI/Abdominal Exam GI & Abdominal Exam: Soft, Normal Bowel Sounds. absent: Distended, Firm, Guarding, Tenderness - Extremities Exam Extremities Exam: Normal Inspection. absent: Calf Tenderness, Pedal Edema - Back Exam Back Exam: NORMAL INSPECTION. absent: CVA tenderness (L), CVA tenderness (R) - Neurological Exam Neurological Exam: Alert, Awake. absent: Normal Gait, Oriented x3 Neuro motor strength exam: Left Upper Extremity: 3, Right Upper Extremity: 4, Left Lower Extremity: 4, Right Lower Extremity: 4 - Psychiatric Exam Psychiatric exam: Normal Affect, Normal Mood - Skin Skin Exam: Dry, Intact, Normal Color, Warm Assessment and Plan - Assessment and Plan (Free Text) Assessment: 81 year old female PMHx DM2, hyperlipidemia, hypothyroidism was brought in by EMS that was called by her when he noticed she was altered this AM Plan: TIA vs CVA Symptoms have resolved more likely TIA, per neurology symptoms most likely due to UTI and hyperglycemia - Head CT - age related atrophy and chronic small vessel ischemic change. Small lacunar infarcts in the right thalamus and left caudate head. -f/u MRI - Patient hss a loop recorder in place - is MRI compatible - Echo: normal LV systolic function, normal doppler, AValve poorly assessed, if murmur is present would repeat aortic valve assessment - Patient does have a systolic murmur, will repeat echo for better visualization of aortic valve -vit B12 >1000, folate 19.5, 25OH vitamin D 37.5 -Lipid panel WNL -ASA 81mg po daily -Crestor 10mg po hs -Fall risk protocol and Aspiration precautions -PT/OT -Neurocheck q4 -Dr Jeane Flaherty consulted help appreciated - stable from neuro, continue ASA and crestor daily UTI -Afebrile, no leukocytosis - Urine culture pelim: gram negative rods -blood culture prelim negative for 24 hours -Rocephin 1gm ivpb daily (started 09/07) - Florastor -NS @ 80cc/hr -Tylenol for temp prn - CT abdomen/pelvis: multiple vascular calcifications within both renal pelvis No evidence of hydronephrosis. Many Clamped colmenares. diverticulosis witout radiologic evidence of diverticulitis. - UA 2047 WBC, 2+ Leuk esterase Carotid Stenosis - carotid dopplers: 50-60% proximal and 60-70% mind internal cartoid stenosis - Had CEA surgery in the past with Dr. Thomas - Dr. Thomas consulted help appreciated Uncontrolled DM2 -HgbA1c 9.6 on admission -RISS medium dose -Accucheck -Glipizide 10mg po bid -Neurontin 300mg po bid -Lantus 15U hs Hx Hypercholesterolemia -Lipid panel WNL on admission -Crestor 10mg po hs Hx Hypothyroidism - TSH 0.17 - Free T4 1.98 -Synthroid 100mg po daily, consider lowering the dose PPX -Protonix 40mg ivp daily -SCD -NS @ 80cc/hr - Purreed nectar thick diet per swallow eval <Aiyana Salinas V - Last Filed: 09/08/16 19:23> Objective - Vital Signs/Intake and Output Vital Signs (last 24 hours): Temp Pulse Resp BP Pulse Ox 99.1 F 91 H 18 128/57 L 97 09/08/16 15:47 09/08/16 16:00 09/08/16 15:47 09/08/16 15:47 09/08/16 15:47 Intake and Output: 09/08/16 09/08/16 06:59 18:59 Intake Total 640 Balance 640 - Medications Medications: Current Medications Acetaminophen (Tylenol 325mg Tab) 650 mg PO Q6 PRN PRN Reason: Fever >100.4 F Aspirin (Aspirin Chewable) 81 mg PO DAILY [facility] Last Admin: 09/08/16 10:43 Dose: Not Given Gabapentin (Neurontin) 300 mg PO BID [facility] Last Admin: 09/08/16 18:24 Dose: 300 mg Glipizide (Glucotrol) 10 mg PO ACB [facility] Last Admin: 09/08/16 08:32 Dose: Not Given Ceftriaxone Sodium 1 gm/ (Sodium Chloride) 100 mls @ 100 mls/hr IVPB DAILY [facility] Last Admin: 09/08/16 10:49 Dose: 100 mls/hr Sodium Chloride (Sodium Chloride 0.9%) 1,000 mls @ 80 mls/hr IV .[id number] [facility] Last Admin: 09/07/16 09:23 Dose: 80 mls/hr Insulin Aspart (Novolog) 0 unit SC [facility] PRN Reason: Protocol Last Admin: 09/08/16 18:24 Dose: 3 unit Insulin Glargine (Lantus) 15 unit SC [facility] Last Admin: 09/07/16 22:00 Dose: Not Given Levothyroxine Sodium (Synthroid) 100 mcg PO DAILY@0630 [facility] Last Admin: 09/08/16 06:35 Dose: Not Given Pantoprazole Sodium (Protonix Inj) 40 mg IVP DAILY [facility] Last Admin: 09/08/16 10:48 Dose: 40 mg Rosuvastatin Calcium (Crestor) 10 mg PO HS [facility] Last Admin: 09/07/16 22:00 Dose: Not Given - Labs Labs: 09/08/16 08:15 09/08/16 08:15 PT 11.3 SECONDS (9.7-12.2) 09/07/16 03:38 INR 1.0 09/07/16 03:38 APTT 23 SECONDS (21-34) 09/07/16 03:38 Attending/Attestation - Attestation I have personally seen and examined this patient.: Yes I have fully participated in the care of the patient.: Yes I have reviewed all pertinent clinical information, including history, physical exam and plan: Yes Notes (Text): Patient seen, examined, and case discussed with day-time resident. Patient seen this afternoon, appears very awake, and alert, talkative. Patient' s brother and sister in law present at bedside; pt permits us to speak in front of her family. She reports she is feeling much better and as per family at bedside appears to be improving. patient completed MRI this morning. Patient evaluated by swallow eval this morning and started back on diet. Pending official urine culture. Assessment/Plan 1) Metabolic Encephalopathy * Neurology (Dr. Jeane Flaherty) on board help appreciated * MRI Brain (09/08/16): no acute intracranial hemorrhage. Extensive chronic white matter ischemic changes. Moderate volume loss. * CT Head (09/07/16): no acute intracranial abnormality * CT Head (09/07/16): age related atrophy and chronic small vessel ischemic change. 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; Left does not suggest; patient [place] [facility] [place] * Aspirin 81mg PO daily * Crestor 10mg PO qHS * Patient hss a loop recorder in place - is MRI compatible-->resident discussed with staff with patient's outpatient sound system installer 2) History of CVA * Neurology (Dr. Jeane Flaherty) on board help appreciated * MRI Brain (09/08/16): no acute intracranial hemorrhage. Extensive chronic white matter ischemic changes. Moderate volume loss. * CT Head (09/07/16): no acute intracranial abnormality * CT Head (09/07/16): age related atrophy and chronic small vessel ischemic change. 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; Left does not suggest; patient completed [place] sided [place] about [place] [facility] [place] * Aspirin 81mg PO daily * Crestor 10mg PO qHS * Patient hss a loop recorder in place - is MRI compatible-->resident discussed with staff with patient's outpatient sound system installer * Echo: normal LV systolic function, normal doppler, AValve poorly assessed, if murmur is present would repeat aortic valve assessment - Patient does have a systolic murmur, will repeat echo for better visualization of aortic valve * vit B12 >1000, folate 19.5, 25OH vitamin D 37.5 * Lipid panel WNL * ASA 81mg po daily and Crestor 10mg po hs * Swallow eval--> soft diet with nectar thick liquid, intermittent aspiration with thin liquids 3) Urinary Tract Infection * 09/07/16: gram negative antonio * Blood culture (09/07/16) no growth after 24hours X2 * Rocephin 1gm IV daily (started 09/07) * Florastor 250mg PO bid * NS @ 80cc/hr * Tylenol 650mg PO Q6 T>100.4F for temp prn * CT abdomen/pelvis (09/07/16): multiple vascular calcifications within both renal pelvis No evidence of hydronephrosis. Many Clamped colmenares. diverticulosis witout radiologic evidence of diverticulitis. further findings available via EMR 4) Murmur * Echo: normal LV systolic function, normal doppler, AValve poorly assessed, if murmur is present would repeat aortic valve assessment - Patient does have a systolic murmur, will repeat echo for better visualization of aortic valve 5) Carotid Artery Stenosis * Vascular surgery: Dr. 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; Left does not suggest; patient [place]ided [place] about [place] [facility] [place] * Will hold off Angio given patient's Cr (currently on IV fluids) 6) Diabetes type 2, uncontrolled * HgbA1c 9.6 * Accucheck qAC and HS * Lantus 15U hs * Novolog slidiing scale subq * Neurotonin 300mg PO bid 7) Hx Hypercholesterolemia * Lipid panel WNL on admission * Crestor 10mg po hs 8) Hx Hypothyroidism * TSH 0.17; Free T4 1.98 * Synthroid 100mg po AM 9) PPX * Protonix 40mg ivp daily for GI ppx * SCDs b/l * NS @ 80cc/hr * Pureed nectar thick diet per swallow eval * Heparin 5000 units subq 12hours
--- NOTE | 2016-09-08 12:43 | MRI ---
PROCEDURE: MRI BRAIN WITHOUT CONTRAST HISTORY: TIA, code stroke COMPARISON: Comparison made with prior CT scan of the brain dated 2016. TECHNIQUE: Multiplanar, multisequence MR images of the brain were obtained without intravenous contrast enhancement. FINDINGS: HEMORRHAGE: No acute parenchymal, subarachnoid nor extra-axial hemorrhage. No hemosiderin deposition identified on diffusion-weighted sequence. DWI: No evidence of an acute or early subacute infarction seen on diffusion imaging. BRAIN PARENCHYMA: Extensive diffuse/confluent chronic periventricular white matter ischemic changes extending peripherally into the deep and subcortical white matter both cerebral hemispheres seen to better advantage. No evidence of acute moderate generalized volume loss. Partially empty sella. VENTRICLES: The ventricles are enlarged ex vacuo basis however no evidence of obstructive type hydrocephalus. CRANIUM: Calvarium unremarkable. ORBITS: Changes of bilateral cataract surgery again noted PARANASAL SINUSES/MASTOIDS: Minor mucosal thickening seen within the ethmoid air complex. VASCULAR SYSTEM: Visualized major vascular flow voids at skull base are patent. OTHER FINDINGS: None. IMPRESSION: No acute intracranial hemorrhage. Extensive chronic white matter ischemic changes. Moderate volume loss. See above discussion for additional findings and details.
[2016-09-08 12:44] LABS: C DIFF TOXIN A B NEGATIVE (NEGATIVE)
[2016-09-08 15:32] LABS: FECAL LEUKOCYTES NEGATIVE (NEGATIVE)
--- NOTE | 2016-09-08 18:39 | CON ---
DATE: 09/08/2016 The patient is a woman who was admitted to the hospital with code stroke. Precisely what was wrong i s hard to determine with the patient or history. At this time, she appears intact. She previously h ad a left carotid endarterectomy done within the past year at [facility]. She has jarrell d chronic problems with the right side. A variety of imaging tests have shown varying degrees of lilly nosis, but never at a critical point where we felt that it was either symptomatic or that it required intervention. On her physical examination now she is alert, oriented and cooperative. Her vital signs stable and n ormal. She has no definable deficit that I can identify. Duplex imaging was done of left carotid, which had previous endarterectomy, appears to be okay. The right side has multiple areas of stenosis on the right side. IMPRESSION: Right carotid artery disease. I am not sure if this is responsible for her symptoms. F urther imaging, particularly a CTA, would be valuable to help us assess it as long as her renal funct ion is okay. At that point, we can determine whether or not she would be a candidate to have surgery done on the right side. Chema Thomas Jr., MD cc: [id number] TT: 09/08/2016 18:38:14 Confirmation # [id number] Dictation # [id number] carolann
--- NOTE | 2016-09-08 19:16 | CP.PCM.CON ---
History of Present Illness - History of Present Illness History of Present Illness: [facility] Sx: Dr Thomas Pt is an 81 year old female w/ PMH of DM2, HLD and hypothyroidism. Pt was brought to ED after being found by with AMS. He states she had a fascial droop, dysphasia, and could not move her arms. Given her previous history of TIA and carotid endarterectomy he presumed she was having a stroke and called EMS. States she was doing well 2 hours prior to this observation. Pt currently oriented to self and place. She does not know what year it is or who the current president is. Denies any RENTERIA, SOB, CP, F/C. Did have one episode of emesis previously. Fascial droop has resolved and pt is able to answer questions now. Close to baseline as per . Carotid US shows 60-70% stenosis. Review of Systems - Review of Systems All systems: reviewed and no additional remarkable complaints except (as per hpi ) Past Patient History - Infectious Disease Hx of Infectious Diseases: None - Past Medical History & Family History Past Medical History?: Yes - Past Social History Smoking Status: Never Smoked - CARDIAC Hx Hypertension: Yes - PULMONARY Hx Respiratory Disorders: No - NEUROLOGICAL Hx Neurological Disorder: No - HEENT Hx HEENT Problems: No - RENAL Hx Chronic Kidney Disease: No - ENDOCRINE/METABOLIC Hx Diabetes Mellitus Type 2: Yes - HEMATOLOGICAL/ONCOLOGICAL Hx Blood Disorders: No - INTEGUMENTARY Hx Dermatological Problems: No - MUSCULOSKELETAL/RHEUMATOLOGICAL Hx Musculoskeletal Disorders: Yes Hx Arthritis: Yes Hx Falls: Yes - GASTROINTESTINAL Hx Gastrointestinal Disorders: No - GENITOURINARY/GYNECOLOGICAL Hx Genitourinary Disorders: Yes Hx Urinary Tract Infection: Yes - PSYCHIATRIC Hx Psychophysiologic Disorder: No Hx Substance Use: No - SURGICAL HISTORY Hx Surgeries: Yes Hx Carotid Endarterectomy: Yes - ANESTHESIA Hx Anesthesia: Yes Hx Anesthesia Reactions: No Meds Allergies/Adverse Reactions: Allergies Allergy/AdvReac Type Severity Reaction Status Date / Time No Known Allergies Allergy Verified 09/07/16 03:06 - Medications Medications: Current Medications Acetaminophen (Tylenol 325mg Tab) 650 mg PO Q6 PRN PRN Reason: Fever >100.4 F Aspirin (Aspirin Chewable) 81 mg PO DAILY [facility] Last Admin: 09/08/16 10:43 Dose: Not Given Gabapentin (Neurontin) 300 mg PO BID [facility] Last Admin: 09/08/16 18:24 Dose: 300 mg Glipizide (Glucotrol) 10 mg PO ACB [facility] Last Admin: 09/08/16 08:32 Dose: Not Given Ceftriaxone Sodium 1 gm/ (Sodium Chloride) 100 mls @ 100 mls/hr IVPB DAILY [facility] Last Admin: 09/08/16 10:49 Dose: 100 mls/hr Sodium Chloride (Sodium Chloride 0.9%) 1,000 mls @ 80 mls/hr IV .[id number] [facility] Last Admin: 09/07/16 09:23 Dose: 80 mls/hr Insulin Aspart (Novolog) 0 unit SC [facility] PRN Reason: Protocol Last Admin: 09/08/16 18:24 Dose: 3 unit Insulin Glargine (Lantus) 15 unit SC [facility] Last Admin: 09/07/16 22:00 Dose: Not Given Levothyroxine Sodium (Synthroid) 100 mcg PO DAILY@0630 [facility] Last Admin: 09/08/16 06:35 Dose: Not Given Pantoprazole Sodium (Protonix Inj) 40 mg IVP DAILY [facility] Last Admin: 09/08/16 10:48 Dose: 40 mg Rosuvastatin Calcium (Crestor) 10 mg PO [facility] Last Admin: 09/07/16 22:00 Dose: Not Given Saccharomyces Boulardii (Florastor) 250 mg PO BID [facility] Physical Exam - Constitutional Appears: Non-toxic, No Acute Distress - Eye Exam Eye Exam: Normal appearance - ENT Exam ENT Exam: Normal Exam Additional comments: no facial paralysis - Neck Exam Neck exam: Positive for: Full Rom. Negative for: Tenderness - Respiratory Exam Respiratory Exam: absent: Accessory Muscle Use, Respiratory Distress - GI/Abdominal Exam GI & Abdominal Exam: Soft. absent: Tenderness Results - Vital Signs Recent Vital Signs: Last Vital Signs Temp 99.1 F 09/08/16 15:47 Pulse 91 H 09/08/16 16:00 Resp 18 09/08/16 15:47 BP 128/57 L 09/08/16 15:47 Pulse Ox 97 09/08/16 15:47 - Labs Result Diagrams: 09/08/16 08:15 09/08/16 08:15 Labs: Laboratory Results - last 24 hr 09/07/16 09/07/16 09/07/16 06:00 16:38 21:08 WBC RBC Hgb Hct MCV MCH MCHC RDW Plt Count MPV Neut % (Auto) Lymph % (Auto) [place] % (Auto) Eos % (Auto) Baso % (Auto) Neut # Lymph # Barnwell # Eos # Baso # Sodium Potassium Chloride Carbon Dioxide Anion Gap BUN Creatinine Est GFR ( Amer) Est GFR (Non-Af Amer) POC Glucose (mg/dL) 224 H 189 H Random Glucose Calcium Phosphorus Magnesium Total Bilirubin AST ALT Alkaline Phosphatase Total Protein Albumin Globulin Albumin/Globulin Ratio Stool Leukocytes, Qual Negative C. difficile Ag & Toxin Negative 09/08/16 09/08/16 09/08/16 06:47 08:15 08:15 WBC 10.5 RBC 2.80 L Hgb 9.5 L Hct 28.3 L MCV 100.7 H D MCH 33.9 H MCHC 33.7 RDW 13.2 Plt Count 251 MPV 7.6 Neut % (Auto) 70.4 Lymph % (Auto) 19.1 L Barnwell % (Auto) 8.9 Eos % (Auto) 1.0 Baso % (Auto) 0.6 Neut # 7.4 H Lymph # 2.0 Barnwell # 0.9 H Eos # 0.1 Baso # 0.1 Sodium 144 Potassium 3.8 Chloride 114 H Carbon Dioxide 19 L Anion Gap 15 BUN 33 H Creatinine 1.5 H Est GFR ( Amer) 40 Est GFR (Non-Af Amer) 33 POC Glucose (mg/dL) 73 Random Glucose 65 Calcium 8.2 L Phosphorus 4.1 Magnesium 2.3 Total Bilirubin 1.0 AST 26 ALT 24 Alkaline Phosphatase 80 Total Protein 6.6 Albumin 3.1 L D Globulin 3.5 Albumin/Globulin Ratio 0.9 L Stool Leukocytes, Qual C. difficile Ag & Toxin 09/08/16 16:47 WBC RBC Hgb Hct MCV MCH MCHC RDW Plt Count MPV Neut % (Auto) Lymph % (Auto) Barnwell % (Auto) Eos % (Auto) Baso % (Auto) Neut # Lymph # Barnwell # Eos # Baso # Sodium Potassium Chloride Carbon Dioxide Anion Gap BUN Creatinine Est GFR ( Amer) Est GFR (Non-Af Amer) POC Glucose (mg/dL) 207 H Random Glucose Calcium Phosphorus Magnesium Total Bilirubin AST ALT Alkaline Phosphatase Total Protein Albumin Globulin Albumin/Globulin Ratio Stool Leukocytes, Qual C. difficile Ag & Toxin Assessment & Plan - Assessment and Plan (Free Text) Assessment: 81F s/p TIA w/ carotid stenosis Plan: recommend CTA of neck once Cr improves to evaluate more accurately degree of stenosis unlikely to need surgical intervention will f/u on test results D/W Dr Martha Blue, PGY2 - Date & Time Date: 09/08/16 Time: 19:45
[2016-09-08] MEDS: (Lantus) Insulin Glargine, Recombinant SC SCH (21:58)
[2016-09-08] MEDS: Sodium Chloride 0.9% 1,000 ML IV SCH (22:47)
[2016-09-09] MEDS: Sodium Chloride 0.9% 1,000 ML IV SCH ×2 (00:17→16:00)
[2016-09-09] MEDS: Levothyroxine 100 MCG TAB PO SCH (06:05)
--- NOTE | 2016-09-09 07:17 | CP.PCM.PN ---
<Lizabeth Rogel - Last Filed: 09/09/16 16:47> Subjective - Date & Time of Evaluation Date of Evaluation: 09/09/16 Time of Evaluation: 07:45 - Subjective Subjective: Pt seen and examined at bedside. Pt is comfortable and in no acute distress. She is a lot more awake alert and talkative today. Pt states that she is feeling better and that she is eating and sleeping well. She denies painful urination or frequent urination. She has no other complaints. Pt denies dizziness, fever, chills, chest pain, palpitations, nausea, vomiting, leg swelling/pain. is at bedside. Objective - Vital Signs/Intake and Output Vital Signs (last 24 hours): Temp Pulse Resp BP Pulse Ox 100.1 F H 95 H 20 159/69 H 96 09/09/16 06:14 09/09/16 00:00 09/08/16 23:00 09/08/16 23:00 09/08/16 23:00 Intake and Output: 09/09/16 09/09/16 06:59 18:59 Intake Total 840 Output Total 400 Balance 440 - Medications Medications: Current Medications Acetaminophen (Tylenol 325mg Tab) 650 mg PO Q6 PRN PRN Reason: Fever >100.4 F Aspirin (Aspirin Chewable) 81 mg PO DAILY [facility] Last Admin: 09/08/16 10:43 Dose: Not Given Gabapentin (Neurontin) 300 mg PO BID [facility] Last Admin: 09/08/16 18:24 Dose: 300 mg Glipizide (Glucotrol) 10 mg PO ACB [facility] Last Admin: 09/08/16 08:32 Dose: Not Given Heparin Sodium (Porcine) (Heparin) 5,000 units SC Q12 [facility] Last Admin: 09/08/16 21:58 Dose: 5,000 units Ceftriaxone Sodium 1 gm/ (Sodium Chloride) 100 mls @ 100 mls/hr IVPB DAILY [facility] Last Admin: 09/08/16 10:49 Dose: 100 mls/hr Sodium Chloride (Sodium Chloride 0.9%) 1,000 mls @ 80 mls/hr IV .[id number] [facility] Last Admin: 09/09/16 00:17 Dose: 80 mls/hr Insulin Aspart (Novolog) 0 unit SC ACHS [facility] PRN Reason: Protocol Last Admin: 09/08/16 21:22 Dose: Not Given Insulin Glargine (Lantus) 15 unit SC [facility] Last Admin: 09/08/16 21:58 Dose: 15 u Levothyroxine Sodium (Synthroid) 100 mcg PO DAILY@0630 [facility] Last Admin: 09/09/16 06:05 Dose: 100 mcg Pantoprazole Sodium (Protonix Inj) 40 mg IVP DAILY [facility] Last Admin: 09/08/16 10:48 Dose: 40 mg Rosuvastatin Calcium (Crestor) 10 mg PO [facility] Last Admin: 09/08/16 22:01 Dose: 10 mg Saccharomyces Boulardii (Florastor) 250 mg PO BID [facility] - Labs Labs: 09/08/16 08:15 09/08/16 08:15 PT 11.3 SECONDS (9.7-12.2) 09/07/16 03:38 INR 1.0 09/07/16 03:38 APTT 23 SECONDS (21-34) 09/07/16 03:38 - Constitutional Appears: Non-toxic, No Acute Distress - Head Exam Head Exam: ATRAUMATIC, NORMAL INSPECTION - Eye Exam Eye Exam: EOMI, Normal appearance, PERRL Pupil Exam: NORMAL ACCOMODATION - ENT Exam ENT Exam: Mucous Membranes Moist - Respiratory Exam Respiratory Exam: Clear to Ausculation Bilateral, NORMAL BREATHING PATTERN. absent: Rales, Rhonchi, Wheezes, Respiratory Distress - Cardiovascular Exam Cardiovascular Exam: REGULAR RHYTHM, +S1, +S2 - GI/Abdominal Exam GI & Abdominal Exam: Soft, Normal Bowel Sounds. absent: Distended, Firm, Guarding, Tenderness - Extremities Exam Extremities Exam: Normal Inspection. absent: Calf Tenderness, Pedal Edema - Back Exam Back Exam: NORMAL INSPECTION. absent: CVA tenderness (L), CVA tenderness (R), paraspinal tenderness - Neurological Exam Neurological Exam: Alert, Awake, CN II-XII Intact, Oriented x3 Neuro motor strength exam: Left Upper Extremity: 4, Right Upper Extremity: 4, Left Lower Extremity: 4, Right Lower Extremity: 4 - Psychiatric Exam Psychiatric exam: Normal Affect, Normal Mood - Skin Skin Exam: Dry, Intact, Normal Color, Warm Assessment and Plan - Assessment and Plan (Free Text) Assessment: Metabolic Encephalopathy * Neurology (Dr. Jeane Flaherty) on board help appreciated * MRI Brain (09/08/16): no acute intracranial hemorrhage. Extensive chronic white matter ischemic changes. Moderate volume loss. * CT Head (09/07/16): no acute intracranial abnormality * CT Head (09/07/16): age related atrophy and chronic small vessel ischemic change. 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 Jeane Flaherty) on board help appreciated * MRI Brain (09/08/16): no acute intracranial hemorrhage. Extensive chronic white matter ischemic changes. Moderate volume loss. * CT Head (09/07/16): no acute intracranial abnormality * CT Head (09/07/16): age related atrophy and chronic small vessel ischemic change. 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 * Echo: normal LV systolic function, normal doppler, AValve poorly assessed, if murmur is present would repeat aortic valve assessment - Patient does have a systolic murmur, will repeat echo for better visualization of aortic valve * vit B12 >1000, folate 19.5, 25OH vitamin D 37.5 * Lipid panel WNL * ASA 81mg po daily and Crestor 10mg po hs * Swallow eval--> soft diet with nectar thick liquid, intermittent aspiration with thin liquids Urinary Tract Infection * 09/07/16: gram negative antonio * Blood culture (09/07/16) no growth after 24hours X2 * Rocephin 1gm IV daily (started 09/07) * Florastor 250mg PO bid * NS @ 80cc/hr * Tylenol 650mg PO Q6 T>100.4F for temp prn * CT abdomen/pelvis (09/07/16): multiple vascular calcifications within both renal pelvis No evidence of hydronephrosis. Many Clamped colmenares. diverticulosis without radiologic evidence of diverticulitis. further findings available via EMR Murmur * Echo: normal LV systolic function, normal doppler, AValve poorly assessed, if murmur is present would repeat aortic valve assessment - Patient does have a systolic murmur, will repeat echo for better visualization of aortic valve Carotid Artery Stenosis * Vascular surgery: Dr. 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; Left does not suggest; patient completed left sided endarectomy about one year ago at [facility] [place] * Will hold off Angio given patient's Cr (currently on IV fluids) * Can follow up outpatient Diabetes type 2, uncontrolled * HgbA1c 9.6 * Accucheck qAC and HS * Lantus 15U hs * Novolog slidiing scale subq * Neurotonin 300mg PO bid Hx Hypercholesterolemia * Lipid panel WNL on admission * Crestor 10mg po hs Hx Hypothyroidism * TSH 0.17; Free T4 1.98 * Synthroid 100mg po AM PPX * Protonix 40mg ivp daily for GI ppx * SCDs b/l * NS @ 80cc/hr * Pureed nectar thick diet per swallow eval * Heparin 5000 units subq 12hours <Aiyana Salinas V - Last Filed: 09/09/16 18:12> Objective - Vital Signs/Intake and Output Vital Signs (last 24 hours): Temp Pulse Resp BP Pulse Ox 98.2 F 82 20 127/66 98 09/09/16 15:40 09/09/16 16:00 09/09/16 15:40 09/09/16 15:40 09/09/16 15:40 Intake and Output: 09/09/16 09/09/16 06:59 18:59 Intake Total 840 Output Total 400 Balance 440 - Medications Medications: Current Medications Acetaminophen (Tylenol 325mg Tab) 650 mg PO Q6 PRN PRN Reason: Fever >100.4 F Aspirin (Aspirin Chewable) 81 mg PO DAILY [facility] Last Admin: 09/09/16 10:53 Dose: 81 mg Gabapentin (Neurontin) 300 mg PO BID [facility] Last Admin: 09/09/16 17:27 Dose: 300 mg Glipizide (Glucotrol) 10 mg PO ACB [facility] Last Admin: 09/09/16 09:01 Dose: Not Given Heparin Sodium (Porcine) (Heparin) 5,000 units SC Q12 [facility] Last Admin: 09/09/16 10:53 Dose: 5,000 units Ceftriaxone Sodium 1 gm/ (Sodium Chloride) 100 mls @ 100 mls/hr IVPB DAILY [facility] Last Admin: 09/09/16 10:55 Dose: 100 mls/hr Sodium Chloride (Sodium Chloride 0.9%) 1,000 mls @ 80 mls/hr IV .[id number] [facility] Last Admin: 09/09/16 00:17 Dose: 80 mls/hr Insulin Aspart (Novolog) 0 unit SC ACHS [facility] PRN Reason: Protocol Last Admin: 09/09/16 17:24 Dose: Not Given Insulin Glargine (Lantus) 15 unit SC [facility] Last Admin: 09/08/16 21:58 Dose: 15 u Levothyroxine Sodium (Synthroid) 100 mcg PO DAILY@0630 [facility] Last Admin: 09/09/16 06:05 Dose: 100 mcg Pantoprazole Sodium (Protonix Inj) 40 mg IVP DAILY [facility] Last Admin: 09/09/16 10:53 Dose: 40 mg Rosuvastatin Calcium (Crestor) 10 mg PO HS [facility] Last Admin: 09/08/16 22:01 Dose: 10 mg Saccharomyces Boulardii (Florastor) 250 mg PO BID [facility] Last Admin: 09/09/16 17:27 Dose: 250 mg - Labs Labs: 09/09/16 07:37 09/09/16 07:37 PT 11.3 SECONDS (9.7-12.2) 09/07/16 03:38 INR 1.0 09/07/16 03:38 APTT 23 SECONDS (21-34) 09/07/16 03:38 Attending/Attestation - Attestation I have personally seen and examined this patient.: Yes I have fully participated in the care of the patient.: Yes I have reviewed all pertinent clinical information, including history, physical exam and plan: Yes Notes (Text): Patient seen, examined, and case discussed with day-time resident. Patient seen this afternoon, appears very awake, and alert, talkative. Patient' s daughter and at bedside; pt permits us to speak in front of her family. She reports she is feeling much better and as per family at bedside appears to be improving and eager to go home. Patient had low grade temperature this morning; discussed with family for possible discharge tomorrow if she remains afebrile for 24 hours. Patient's creatinine 1.2, recommended to hold off Angio at this time, given patient is fighting off urinary tract infection and to re-check creatinine given risk of contrast induced nephropathy. 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 Urine culture: E. Coli sensitive to everything except Ampicillin Plan for discharge for tomorrow if patient remains 24 hours afebrile Assessment/Plan 1) Metabolic Encephalopathy * Neurology (Dr. Jeane Flaherty) on board help appreciated * MRI Brain (09/08/16): no acute intracranial hemorrhage. Extensive chronic white matter ischemic changes. Moderate volume loss. * CT Head (09/07/16): no acute intracranial abnormality * CT Head (09/07/16): age related atrophy and chronic small vessel ischemic change. 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 Jeane Flaherty) on board help appreciated * MRI Brain (09/08/16): no acute intracranial hemorrhage. Extensive chronic white matter ischemic changes. Moderate volume loss. * CT Head (09/07/16): no acute intracranial abnormality * CT Head (09/07/16): age related atrophy and chronic small vessel ischemic change. 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 coli sensitive to Rocephin * Blood culture (09/07/16) no growth after 48 hours X2 * Rocephin 1gm IV daily (started 09/07) * Florastor 250mg PO bid * NS @ 80cc/hr * Tylenol 650mg PO Q6 T>100.4F for temp prn * CT abdomen/pelvis (09/07/16): multiple vascular calcifications within both renal pelvis No evidence of hydronephrosis. Many Clamped colmenares. diverticulosis witout radiologic evidence of diverticulitis. further findings available via EMR 4) Murmur * Echo: normal LV systolic function, normal doppler, AValve poorly assessed, if murmur is present would repeat aortic valve assessment - Patient does have a systolic murmur, will repeat echo for better visualization of aortic valve * Pending official echo report 5) Carotid Artery Stenosis * Vascular surgery: Dr. 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; Left does not suggest; patient completed left sided endarectomy about one year ago at [facility] [place] * Will hold off Angio given patient's Cr (currently on IV fluids) 6) Diabetes type 2, uncontrolled * HgbA1c 9.6 * Accucheck qAC and HS * Lantus 15U hs * Novolog slidiing scale subq * Neurotonin 300mg PO bid 7) Hx Hypercholesterolemia * Lipid panel WNL on admission * Crestor 10mg po hs 8) Hx Hypothyroidism * TSH 0.17; Free T4 1.98 * Synthroid 100mg po AM 9) PPX * Protonix 40mg ivp daily for GI ppx * SCDs b/l * NS @ 80cc/hr * Pureed nectar thick diet per swallow eval * Heparin 5000 units subq 12hours
[2016-09-09] MEDS: (Novolog) Insulin Aspart, Recombinant 100 u/ml 10 ml vial SC SCH ×3 (07:57→22:31)
[2016-09-09 08:04] LABS: BASO # 0.1 K/uL (0.0-0.2); BASO % 0.9 % (0.0-2.0); EOS # 0.1 K/uL (0.0-0.7); EOS % 0.9 % (0.0-4.0); HEMATOCRIT 27.9 % (34.0-47.0); LYMPH # 1.7 K/uL (1.0-4.3); LYMPH % 20.1 % (20.0-40.0); MEAN CORPUSCULAR HEMOGLOBIN 33.5 pg (27.0-31.0); MEAN CORPUSCULAR HGB CONC 33.5 g/dL (33.0-37.0); MEAN PLATELET VOLUME 7.9 fL (7.2-11.7); MONO # 0.7 K/uL (0.0-0.8); MONO % 8.2 % (0.0-10.0); RED CELL DISTRIBUTION WIDTH 13.2 % (11.5-14.5); WHITE BLOOD COUNT 8.5 K/uL (4.8-10.8)
[2016-09-09 08:25] LABS: POTASSIUM 3.8 mmol/L (3.6-5.2)
[2016-09-09 08:27] LABS: ALB/GLOB RATIO 0.7 (1.0-2.1); BILIRUBIN,TOTAL 0.8 mg/dL (0.2-1.3); TOTAL PROTEIN 6.7 g/dL (6.3-8.3)
[2016-09-09 08:28] LABS: CALCIUM 7.9 mg/dl (8.6-10.4); PHOSPHOROUS 3.2 mg/dL (2.5-4.5)
--- NOTE | 2016-09-09 10:04 | CP.PCM.PN ---
Subjective - Date & Time of Evaluation Date of Evaluation: 09/09/16 Time of Evaluation: 10:03 - Subjective Subjective: Vasc Sx: Dr Thomas Pt S&E. NAEO. Resting comfortably. No complaints. Dysphasia improved. Cr improved Objective - Vital Signs/Intake and Output Vital Signs (last 24 hours): Temp Pulse Resp BP Pulse Ox 99.2 F 91 H 20 134/57 L 95 09/09/16 07:00 09/09/16 07:00 09/09/16 07:00 09/09/16 07:00 09/09/16 07:00 Intake and Output: 09/09/16 09/09/16 06:59 18:59 Intake Total 840 Output Total 400 Balance 440 - Medications Medications: Current Medications Acetaminophen (Tylenol 325mg Tab) 650 mg PO Q6 PRN PRN Reason: Fever >100.4 F Aspirin (Aspirin Chewable) 81 mg PO DAILY [facility] Last Admin: 09/08/16 10:43 Dose: Not Given Gabapentin (Neurontin) 300 mg PO BID [facility] Last Admin: 09/08/16 18:24 Dose: 300 mg Glipizide (Glucotrol) 10 mg PO ACB [facility] Last Admin: 09/09/16 09:01 Dose: Not Given Heparin Sodium (Porcine) (Heparin) 5,000 units SC Q12 [facility] Last Admin: 09/08/16 21:58 Dose: 5,000 units Ceftriaxone Sodium 1 gm/ (Sodium Chloride) 100 mls @ 100 mls/hr IVPB DAILY [facility] Last Admin: 09/08/16 10:49 Dose: 100 mls/hr Sodium Chloride (Sodium Chloride 0.9%) 1,000 mls @ 80 mls/hr IV .[id number] [facility] Last Admin: 09/09/16 00:17 Dose: 80 mls/hr Insulin Aspart (Novolog) 0 unit SC ACHS [facility] PRN Reason: Protocol Last Admin: 09/09/16 07:57 Dose: Not Given Insulin Glargine (Lantus) 15 unit SC HS [facility] Last Admin: 09/08/16 21:58 Dose: 15 u Levothyroxine Sodium (Synthroid) 100 mcg PO DAILY@0630 [facility] Last Admin: 09/09/16 06:05 Dose: 100 mcg Pantoprazole Sodium (Protonix Inj) 40 mg IVP DAILY [facility] Last Admin: 09/08/16 10:48 Dose: 40 mg Rosuvastatin Calcium (Crestor) 10 mg PO HS [facility] Last Admin: 09/08/16 22:01 Dose: 10 mg Saccharomyces Boulardii (Florastor) 250 mg PO BID [facility] - Labs Labs: 09/09/16 07:37 09/09/16 07:37 PT 11.3 SECONDS (9.7-12.2) 09/07/16 03:38 INR 1.0 09/07/16 03:38 APTT 23 SECONDS (21-34) 09/07/16 03:38 - Constitutional Appears: Non-toxic, No Acute Distress - Head Exam Head Exam: NORMAL INSPECTION - ENT Exam Additional comments: intact CN function - Respiratory Exam Respiratory Exam: absent: Accessory Muscle Use, Respiratory Distress - Neurological Exam Neurological Exam: Alert, Awake - Psychiatric Exam Psychiatric exam: Normal Affect, Normal Mood Assessment and Plan - Assessment and Plan (Free Text) Assessment: 81F s/p TIA; being evaluated for carotid stenosis Plan: Cr fx improved Recommend CTA of neck to eval stenosis will follow d/w Dr Martha Blue, PGY2
[2016-09-09] MEDS: Saccharomyces Boulardi 250 mg Cap PO SCH ×2 (10:53→17:27)
[2016-09-09] MEDS: (Lantus) Insulin Glargine, Recombinant SC SCH (22:31)
--- NOTE | 2016-09-10 00:27 | CARD ---
APPROVED REPORT EXAM: LIMITED Two-dimensional and M-mode echocardiogram with Doppler and color Doppler. Other Information Quality : GoodRhythm : NSR INDICATION FOLLOW UP STUDY FOR AORTIC VALVE MURMUR 2D DIMENSIONS LVOT Diameter2.0 (1.8-2.4cm) M-Mode DIMENSIONS Aortic Root1.92 (2.2-3.7cm) Aortic Valve AoV Peak Rxckfshc328.0cm/sAoV VTI60.4cmAO Peak GR.28mmHg LVOT Peak Gfbhhewh54.5cm/sLVOT VTI16.47cmAO Mean GR.14mmHg DARLIN (VMAX)0.77cu4KGX (VTI)0.83cm2 Mitral Valve E/A ratio0.0 TDI E/Lateral E'0.0E/Medial E'0.0 Tricuspid Valve TR Peak [id number]/sTR Peak Gr.[id number] AORTIC VALVE The aortic valve is moderately to severely calcified. The aortic valve is probably trileaflet. No aortic regurgitation is present. There is severe valvular aortic stenosis. Calculated aortic valve area is 0.8 cm2 with maximum pressure gradient of 28 mmHg and mean pressure gradient of 14 mmHg. <Conclusion> The aortic valve is moderately to severely calcified. There is severe valvular aortic stenosis. Calculated aortic valve area is 0.8 cm2 with maximum pressure gradient of 28 mmHg and mean pressure gradient of 14 mmHg.
[2016-09-10] MEDS: Levothyroxine 100 MCG TAB PO SCH (06:05)
[2016-09-10] MEDS: Sodium Chloride 0.9% 1,000 ML IV SCH ×2 (06:07→09:58)
[2016-09-10] MEDS: (Novolog) Insulin Aspart, Recombinant 100 u/ml 10 ml vial SC SCH ×2 (07:55→12:08)
[2016-09-10 08:33] VITALS: BP 156/66; PULSE 79; RESP 18; TEMP 98.8; O2SAT 100
[2016-09-10] MEDS: Saccharomyces Boulardi 250 mg Cap PO SCH (09:55)
[2016-09-10 11:53] LABS: BASO # 0.1 K/uL (0.0-0.2); BASO % 1.3 % (0.0-2.0); EOS # 0.2 K/uL (0.0-0.7); EOS % 3.2 % (0.0-4.0); HEMATOCRIT 24.4 % (34.0-47.0); LYMPH # 1.6 K/uL (1.0-4.3); LYMPH % 27.1 % (20.0-40.0); MEAN CELL VOLUME 99.3 fL (81.0-99.0); MEAN CORPUSCULAR HEMOGLOBIN 33.5 pg (27.0-31.0); MEAN CORPUSCULAR HGB CONC 33.7 g/dL (33.0-37.0); MEAN PLATELET VOLUME 8.1 fL (7.2-11.7); MONO # 0.6 K/uL (0.0-0.8); MONO % 10.4 % (0.0-10.0); RED CELL DISTRIBUTION WIDTH 12.9 % (11.5-14.5); WHITE BLOOD COUNT 5.8 K/uL (4.8-10.8)
[2016-09-10 12:09] LABS: CHLORIDE 113 mmol/L (98-107)
[2016-09-10 12:10] LABS: POTASSIUM 3.7 mmol/L (3.6-5.2); SODIUM 142 mmol/L (132-148)
[2016-09-10 12:12] LABS: ALB/GLOB RATIO 0.8 (1.0-2.1); ALKALINE PHOSPHATASE 78 U/L (38-126); ALT/SGPT 25 U/L (9-52); AST/SGOT 21 U/L (14-36); BILIRUBIN,TOTAL 0.6 mg/dL (0.2-1.3); BLOOD UREA NITROGEN 13 mg/dL (7-17); CARBON DIOXIDE 18 mmol/L (22-30); GFR AFRICAN-AMERICAN > 60; TOTAL PROTEIN 6.2 g/dL (6.3-8.3)
[2016-09-10 12:13] LABS: GLUCOSE,RANDOM 142 mg/dL (65-105); PHOSPHOROUS 2.8 mg/dL (2.5-4.5)
--- NOTE | 2016-09-13 00:10 | CP.PCM.DIS ---
Provider - Provider Date of Admission: 09/07/16 05:50 Attending physician: Candelario Rodrigues MD Primary care physician: Dr. Chritsy Henry Consults: Dr. Thomas - surgery Dr. Jeane Flaherty - neurology Time Spent in preparation of Discharge (in minutes): 35 Diagnosis - Discharge Diagnosis (1) Renal insufficiency Status: Acute (2) UTI (urinary tract infection) Status: Acute Hospital Course - Lab Results Lab Results: Micro Results 09/07/16 06:00 Stool Stool Culture - Final NO SALMONELLA, SHIGELLA OR CAMPYLOBACTER ISOLATED. 09/07/16 06:00 Urine,Catheterized Urine Culture - Final Escherichia Coli Most Recent Lab Values WBC 5.8 K/uL (4.8-10.8) 09/10/16 11:41 RBC 2.45 Mil/uL (3.80-5.20) L 09/10/16 11:41 Hgb 8.2 g/dL (11.0-16.0) L 09/10/16 11:41 Hct 24.4 % (34.0-47.0) L 09/10/16 11:41 MCV 99.3 fL (81.0-99.0) H 09/10/16 11:41 MCH 33.5 pg (27.0-31.0) H 09/10/16 11:41 MCHC 33.7 g/dL (33.0-37.0) 09/10/16 11:41 RDW 12.9 % (11.5-14.5) 09/10/16 11:41 Plt Count 253 K/uL (130-400) 09/10/16 11:41 MPV 8.1 fL (7.2-11.7) 09/10/16 11:41 Neut % (Auto) 58.0 % (50.0-75.0) 09/10/16 11:41 Lymph % (Auto) 27.1 % (20.0-40.0) 09/10/16 11:41 Cowley % (Auto) 10.4 % (0.0-10.0) H 09/10/16 11:41 Eos % (Auto) 3.2 % (0.0-4.0) 09/10/16 11:41 Baso % (Auto) 1.3 % (0.0-2.0) 09/10/16 11:41 Neut # 3.4 K/uL (1.8-7.0) 09/10/16 11:41 Lymph # 1.6 K/uL (1.0-4.3) 09/10/16 11:41 Cowley # 0.6 K/uL (0.0-0.8) 09/10/16 11:41 Eos # 0.2 K/uL (0.0-0.7) 09/10/16 11:41 Baso # 0.1 K/uL (0.0-0.2) 09/10/16 11:41 PT 11.3 SECONDS (9.7-12.2) 09/07/16 03:38 INR 1.0 09/07/16 03:38 APTT 23 SECONDS (21-34) 09/07/16 03:38 pO2 39 mm/Hg (30-55) 09/07/16 04:48 VBG pH 7.43 (7.32-7.43) 09/07/16 04:48 VBG pCO2 33 mmHg (40-60) L 09/07/16 04:48 VBG HCO3 23.0 mmol/L 09/07/16 04:48 VBG Total CO2 22.9 mmol/L (22-28) 09/07/16 04:48 VBG O2 Sat (Calc) 84.5 % (40-65) H 09/07/16 04:48 VBG Base Excess -1.7 mmol/L (0.0-2.0) L 09/07/16 04:48 VBG Potassium 5.2 mmol/L (3.6-5.2) 09/07/16 04:48 Sodium 138.0 mmol/l (132-148) 09/07/16 04:48 Chloride 108.0 mmol/L (98-107) H 09/07/16 04:48 Glucose 356 mg/dl (65-105) H 09/07/16 04:48 Lactate 1.5 mmol/L (0.7-2.1) 09/07/16 04:48 Crit Value Called To Md sarah browne 09/07/16 04:48 Crit Value Called By R alert order tracer 09/07/16 04:48 Crit Value Read Back Y 09/07/16 04:48 Blood Gas Notified Time 458 09/07/16 04:48 Sodium 142 mmol/L (132-148) 09/10/16 11:41 Potassium 3.7 mmol/L (3.6-5.2) 09/10/16 11:41 Chloride 113 mmol/L (98-107) H 09/10/16 11:41 Carbon Dioxide 18 mmol/L (22-30) L 09/10/16 11:41 Anion Gap 15 (10-20) 09/10/16 11:41 BUN 13 mg/dL (7-17) 09/10/16 11:41 Creatinine 0.9 MG/DL (0.7-1.2) 09/10/16 11:41 Est GFR ( Amer) > 60 09/10/16 11:41 Est GFR (Non-Af Amer) > 60 09/10/16 11:41 POC Glucose (mg/dL) 176 mg/dL (65-110) H 09/10/16 11:32 Random Glucose 142 mg/dL (65-105) H 09/10/16 11:41 Hemoglobin A1c 9.6 % (4.2-6.5) H 09/07/16 03:38 Calcium 8.0 mg/dl (8.6-10.4) L 09/10/16 11:41 Phosphorus 2.8 mg/dL (2.5-4.5) 09/10/16 11:41 Magnesium 2.0 mg/dL (1.6-2.3) 09/10/16 11:41 Total Bilirubin 0.6 mg/dL (0.2-1.3) 09/10/16 11:41 AST 21 U/L (14-36) 09/10/16 11:41 ALT 25 U/L (9-52) 09/10/16 11:41 Alkaline Phosphatase 78 U/L (38-126) 09/10/16 11:41 Total Creatine Kinase 23 U/L (30-135) L 09/07/16 10:36 CK-MB (Mass) 0.26 ng/mL (0.0-3.38) 09/07/16 10:36 Troponin I 0.0130 ng/mL (0.00-0.120) 09/07/16 03:38 Troponin I, Quant 0.1110 ng/mL (0.00-0.120) 09/07/16 10:36 Total Protein 6.2 g/dL (6.3-8.3) L 09/10/16 11:41 Albumin 2.7 g/dL (3.5-5.0) L 09/10/16 11:41 Globulin 3.5 gm/dL (2.2-3.9) 09/10/16 11:41 Albumin/Globulin Ratio 0.8 (1.0-2.1) L 09/10/16 11:41 Triglycerides 127 mg/dL (0-149) 09/07/16 03:38 Cholesterol 142 mg/dL (0-199) 09/07/16 03:38 LDL Cholesterol Direct 83 mg/dL (0-129) 09/07/16 03:38 HDL Cholesterol 27 mg/dL (30-70) L 09/07/16 03:38 Vitamin B12 > 1000 pg/mL (239-931) H 09/07/16 11:22 25-OH Vitamin D Total 37.5 NG/ML (30.0-100.0) 09/07/16 11:22 Folate 19.5 ng/mL 09/07/16 11:22 Free T4 1.98 ng/dL (0.78-2.19) 09/07/16 11:22 TSH 3rd Generation 0.17 mIU/L (0.46-4.68) L 09/07/16 11:22 Venous Blood Potassium 5.2 mmol/L (3.6-5.2) 09/07/16 04:48 Urine Color Yellow (YELLOW) 09/07/16 05:23 Urine Clarity Turbid (Clear) 09/07/16 05:23 Urine pH 7.0 (5.0-8.0) 09/07/16 05:23 Ur Specific [place] 1.009 (1.003-1.030) 09/07/16 05:23 Urine Protein 2+ mg/dL (NEGATIVE) H 09/07/16 05:23 Urine Glucose (UA) 3+ mg/dL (Normal) H 09/07/16 05:23 Urine Ketones Negative mg/dL (NEGATIVE) 09/07/16 05:23 Urine Blood 3+ (NEGATIVE) H 09/07/16 05:23 Urine Nitrate Negative (NEGATIVE) 09/07/16 05:23 Urine Bilirubin Negative (NEGATIVE) 09/07/16 05:23 Urine Urobilinogen Normal mg/dL (0.2-1.0) 09/07/16 05:23 Ur Leukocyte Esterase 2+ Ariella/uL (Negative) H 09/07/16 05:23 Urine WBC (Auto) 2047 /hpf (0-5) H 09/07/16 05:23 Urine RBC (Auto) 175 /hpf (0-3) H 09/07/16 05:23 Stool Leukocytes, Qual Negative (NEGATIVE) 09/07/16 06:00 C. difficile Ag & Toxin Negative (NEGATIVE) 09/07/16 06:00 Blood Type B POSITIVE 09/07/16 03:55 Antibody Screen Negative 09/07/16 03:55 - Hospital Course Hospital Course: PMHx: PMHx DM2, hyperlipidemia, hypothyroidism PSHx: carotid endarterectomy by Dr. Thomas ALL: NKDA Medications: as per records Social Hx: denies current alcohol, tobacco, drug abuse. Lives with . 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 Family Hx: denies hx of [place], CVA, cancer PMD: Christy Henry On admission: 81 year old female PMHx DM2, hyperlipidemia, hypothyroidism was brought in by EMS that was called by her when he noticed she was altered this AM. Patient's states that around 1:30 the morning of admission he noted that while his was lying down there was vomitus on her shirt [nonbloody nonbilious] and that she was unable to speak and could not move her arms, could not smile, and that her mouth was twisted. Patient was asymptomatic and had eaten a complete dinner an hour or two prior to the episode. She did not have a fall and did not have any LOC or hit her head as per . He reported this is the second time she has had such symptoms; the last "mini stroke" occured a coupe of years ago but did not know exactly when. He also noted that over he past 2-3 days she was having increased urinary frequency but kept complaining of some burning on urination and that her bladder was not emptying properly. Patient's denied noticing any blood in her urine/discharge. Patient was AO x [address] but not to time/age. She denied any chills, diaphoresis, dizziness, lightheadedness, change in vision, change in hearing, sore throat, dysphagia, chest pain, palpitations, SOB, cough, hematemesis, diarrhea, constipation, hematochezia, back pain, rash, bruising, bleeding, travel, sick contacts, change in weight, change in appetite. She admitted to fevers, weakness, frontal headache, abd pain , nausea, one episode of emesis, dysuria, frequency, and b/l leg pain. During Hospital Stay: Code stroke was called in the ED. Neurology was consulted and stated patient should continue ASA and crestor. MRI Brain (09/08/16): no acute intracranial hemorrhage. Extensive chronic white matter ischemic changes. Moderate volume loss. CT Head (09/07/16): no acute intracranial abnormality. CT Head (09/07/16): age related atrophy and chronic small vessel ischemic change. Small lacunar infarct in the right thalamus and left caudate head. Per neurology patient did not have a new CVA or TIA. Patient's symptoms were likely due to Metabolic encephalopathy due to UTI. Urine culture 09/07/16 showed E. coli sensitive to Rocephin. Patient was given Rocephin IV during her stay. BUN and CR were elevated on admission but returned to baseline with IV fluids. CT abdomen/pelvis (09/07/16): multiple vascular calcifications within both renal pelvis No evidence of hydronephrosis. Many Clamped colmenares. diverticulosis witout radiologic evidence of diverticulitis. further findings available via EMR. Blood cultures were negative. Echo showed normal LV systolic function, normal doppler, AValve poorly assessed, if murmur is present would repeat aortic valve assessment. Patient does have a systolic murmur so a repeat echo for better visualization of aortic valve. Cartoid Duplex showed right 50-60% stenosis of the proximal and 60-70% of the mid right internal cartoid artery; Left does not suggest; patient completed left sided endarectomy about one year ago at [facility]. Dr. Thomas was consulted. Surgery team wanted a CT angio but due to her recent CATHERINE we decided to hold off on giving her contrast. She can follow up outpatient. She was given Crestor for her history of high cholesterol. Her blood sugar was controlled with Latus 15 U at night. TSH 0.17; Free T4 1.98. She was continued on her home dose of Synthroid 100mg po. Primary to adjusted dosing. Patient is stable for discharge home. She is to follow up with her primary care Dr. Harrison within one week of discharge for post hospital care. She is to follow up with Dr. Thomas for future imaging due to her carotid stenosis. She is to resume taking all of her home medications and in addition take the following new medication: Ciprofloxacin 500mg one by mouth twice a day for 7 days for the urinary tract infection. Patient is to return to the emergency room if symptoms return. All instructions explained to the patient and she agrees. Continue taking the follow medications: ASA 81mg by mouth daily Lantus 15 Units INJ at bedtime Neurotonin 300mg by mouth twice a day Synthroid 100mg one by mouth in the morning Glipizide 10mg by mouth with breakfast Lipitor 40mg one by mouth at bedtime *Ciprofloxacin 500mg one by mouth twice a day for 7 days - new medication Discharge Exam - Head Exam Head Exam: ATRAUMATIC, NORMAL INSPECTION - Eye Exam Eye Exam: EOMI, Normal appearance, PERRL Pupil Exam: NORMAL ACCOMODATION - ENT Exam ENT Exam: Mucous Membranes Moist - Respiratory Exam Respiratory Exam: NORMAL BREATHING PATTERN. absent: Accessory Muscle Use, Respiratory Distress - Cardiovascular Exam Cardiovascular Exam: REGULAR RHYTHM, +S1, +S2, Systolic Murmur - GI/Abdominal Exam GI & Abdominal Exam: Normal Bowel Sounds, Soft. absent: Distended, Firm, Guarding, Tenderness - Extremities Exam Extremities exam: normal inspection Additional comments: left sided residual weakness. upper ext - Back Exam Back exam: NORMAL INSPECTION. absent: CVA tenderness (L), CVA tenderness (R), paraspinal tenderness - Neurological Exam Neurological exam: Alert, Normal Gait, Oriented x3 - Psychiatric Exam Psychiatric exam: Normal Affect, Normal Mood - Skin Skin Exam: Dry, Intact, Normal Color, Warm Discharge Plan - Discharge Medications Prescriptions: Aspirin [Low Dose Aspirin EC] 81 mg PO DAILY #30 Atorvastatin [Lipitor] 40 mg PO DAILY #30 Ciprofloxacin HCl [Cipro] 500 mg PO BID #14 tablet Gabapentin [Gralise] 300 mg PO Q4 #60 GlipiZIDE [Glucotrol] 10 mg PO DAILY #30 Insulin Glargine,Hum.rec.anlog [Toujeo Solostar] 15 unit SQ BID #1 unit Levothyroxine [Synthroid] 100 mcg PO DAILY #30 - Follow Up Plan Condition: FAIR Disposition: HOME/ ROUTINE Instructions: Transient Ischemic Attack (DC), Urinary Tract Infection in Women (DC), Urinary Tract Infection in Men (DC), Renal Failure Diet (DC), Self Care Measures After a Stroke (DC), Dysuria (GEN) Additional Instructions: Patient is stable for discharge home. She is to follow up with her primary care Dr. Harrison within one week of discharge for post hospital care. She is to follow up with Dr. Thomas for future imaging due to her carotid stenosis. She is to resume taking all of her home medications and in addition take the following new medication: Ciprofloxacin 500mg one by mouth twice a day for 7 days for the urinary tract infection. Patient is to return to the emergency room if symptoms return. All instructions explained to the patient and she agrees. Continue taking the follow medications: ASA 81mg by mouth daily Lantus 15 Units INJ at bedtime Neurotonin 300mg by mouth twice a day Synthroid 100mg one by mouth in the morning Glipizide 10mg by mouth with breakfast Lipitor 40mg one by mouth at bedtime *Ciprofloxacin 500mg one by mouth twice a day for 7 days - new medication Referrals: Tay Flaherty MD [Staff Provider] - Chema Thomas Jr., MD [Staff Provider] -
== END 2016-09-10 15:30 | disposition home or self-care (01) | DRG 689 ==
LOC: C.ER 02:56 → C.9E 05:50 → C.6T 06:30
PROVIDERS: ADMIT Internal Medicine; ATTEND Internal Medicine
DX: N39.0 Urinary tract infection, site not specified (principal); G93.41 Metabolic encephalopathy; E11.22 Type 2 diabetes mellitus with diabetic chronic kidney disease; E11.42 Type 2 diabetes mellitus with diabetic polyneuropathy; I65.21 Occlusion and stenosis of right carotid artery; E05.90 Thyrotoxicosis, unspecified without thyrotoxic crisis or storm; E78.5 Hyperlipidemia, unspecified; E03.9 Hypothyroidism, unspecified; B96.20 Unspecified Escherichia coli [E. coli] as the cause of diseases classified elsewhere; R01.1 Cardiac murmur, unspecified; N18.9 Chronic kidney disease, unspecified; E87.5 Hyperkalemia; E11.65 Type 2 diabetes mellitus with hyperglycemia; E78.00 Pure hypercholesterolemia, unspecified; I16.0 Hypertensive urgency; Z79.4 Long term (current) use of insulin; Z79.899 Other long term (current) drug therapy; Z86.73 Personal history of transient ischemic attack (TIA), and cerebral infarction without residual deficits; Z87.440 Personal history of urinary (tract) infections; R47.02 Dysphasia; I12.9 Hypertensive chronic kidney disease with stage 1 through stage 4 chronic kidney disease, or unspecified chronic kidney disease

== ENCOUNTER 2016-11-02 20:31 | Inpatient (IN) | payer MEDICARE ==
[2016-11-02 20:31] VITALS: BMI 23.8
--- NOTE | 2016-11-02 21:01 | CT ---
EXAM: CT Head Without Intravenous Contrast CLINICAL HISTORY: 81 years old, female; Signs and symptoms; Altered mental status/memory loss; Additional info: Code stroke TECHNIQUE: Axial computed tomography images of the head/brain without intravenous contrast. This CT exam was performed using one or more of the following dose reduction techniques: automated exposure control, adjustment of the mA and/or kV according to patient size, and/or use of iterative reconstruction technique. EXAM DATE/TIME: 11/02/2016 8:45 PM COMPARISON: CT - HEAD W/O CONTRAST 09/07/2016 7:42:18 PM FINDINGS: Brain: There is dilatation of sulci gyri and ventricles. There is no midline shift. There is decreased attenuation in periventricular white matter. There are old lacunar infarcts in the basal ganglia. There are no focal masses. There are no focal hemorrhages. Lee-white differentiation is visualized. Ventricles: See above Bones: Cranial vault is intact. Soft tissues: unremarkable Sinuses: There is no acute sinusitis. Middle ears and mastoids are unremarkable. Orbits: Orbital contents are unchanged IMPRESSION: Atrophy and small vessel disease, no bleed If there is clinical suspicion for acute stroke, MRI advised
[2016-11-02 21:16] LABS: BASO % 0.6 % (0.0-2.0); EOS % 0.5 % (0.0-4.0); HEMATOCRIT 36.2 % (34.0-47.0); LYMPH # 1.7 K/uL (1.0-4.3); LYMPH % 20.9 % (20.0-40.0); MEAN CELL VOLUME 98.1 fL (81.0-99.0); MEAN CORPUSCULAR HEMOGLOBIN 33.6 pg (27.0-31.0); MEAN CORPUSCULAR HGB CONC 34.3 g/dL (33.0-37.0); MONO # 0.2 K/uL (0.0-0.8); MONO % 2.7 % (0.0-10.0); RED CELL DISTRIBUTION WIDTH 14.2 % (11.5-14.5); WHITE BLOOD COUNT 8.3 K/uL (4.8-10.8)
[2016-11-02 21:22] LABS: VENOUS BLOOD GAS BASE EXCESS -4.5 mmol/L (0.0-2.0); VENOUS BLOOD GAS PCO2 40 mmHg (40-60); VENOUS BLOOD PH 7.33 (7.32-7.43)
[2016-11-02 21:27] LABS: CHLORIDE 101 mmol/L (98-107); SODIUM 137 mmol/L (132-148)
[2016-11-02] MEDS ORDERED: Piperacillin/Tazobact 3.375 gm 100 ML IVPB STA (21:27)
[2016-11-02 21:28] LABS: POTASSIUM 5.4 mmol/L (3.6-5.2)
[2016-11-02 21:29] LABS: CHOLESTEROL 147 mg/dL (0-199)
[2016-11-02 21:30] LABS: ALKALINE PHOSPHATASE 99 U/L (38-126); ALT/SGPT 32 U/L (9-52); AST/SGOT 29 U/L (14-36); BILIRUBIN,TOTAL 1.1 mg/dL (0.2-1.3); BLOOD UREA NITROGEN 20 mg/dL (7-17); CARBON DIOXIDE 17 mmol/L (22-30); GFR AFRICAN-AMERICAN > 60; GLUCOSE,RANDOM 195 mg/dL (65-105)
[2016-11-02] MEDS ORDERED: Piperacillin/Tazobact 3.375 gm 100 ML IVPB ONE (21:41)
[2016-11-02] MEDS ORDERED: Sodium Chloride 0.9% 500 ML IV ONE (21:41)
--- NOTE | 2016-11-02 22:15 | C.PDOC ---
History Of Present Illness 81 year old female who was brought to the ER by her son after she had a syncopal episode at home. Patient was found to be flaccid with a loss of mental status at home. Patient had a similar episode in 08/2016; she denies symptoms of nausea, vomiting, or fever. Time Seen by Provider: 11/02/16 20:45 Chief Complaint (Nursing): Weakness/Neurological Deficit History Per: Patient, Family History/Exam Limitations: no limitations Onset/Duration Of Symptoms: Hrs Current Symptoms Are (Timing): Still Present Associated Symptoms Preceding Syncopal Episode: Other (Not known) Seizure Or Post-ictal Symptoms: None Possible Causative Factor(s): Other (Not known) Fall Associated With With Symptoms: No Recent travel outside of the [place]: No - Symptoms Of CVA Associated Symptoms: Impaired Speech. denies: Seizure Activity, New Vision Deficit(Left), New Vision Deficit(Right), Decreased Ability To Walk, New Confusion Past Medical History Reviewed: Historical Data, Nursing Documentation, Vital Signs Vital Signs: Last Vital Signs Temp 99.3 F 11/03/16 00:03 Pulse 94 H 11/03/16 00:03 Resp 20 11/03/16 00:03 BP 128/52 L 11/03/16 00:03 Pulse Ox 99 11/03/16 00:03 - Medical History PMH: Arthritis, HTN, Hypercholesterolemia, Hyperlipidemia, Hyperthyroidism, Hypothyroidism Surgical History: Carotid Endarterectomy Family History: States: Unknown Family Hx - Social History Hx Alcohol Use: No Hx Substance Use: No - Immunization History Hx Tetanus Toxoid Vaccination: Yes Hx Influenza Vaccination: Yes Hx Pneumococcal Vaccination: Yes Review Of Systems Constitutional: Negative for: Fever, Chills Cardiovascular: Negative for: Chest Pain, Palpitations Respiratory: Negative for: Shortness of Breath Gastrointestinal: Negative for: Nausea, Vomiting, Diarrhea Genitourinary: Positive for: Frequency Neurological: Positive for: Weakness, Change in Speech Physical Exam - Physical Exam Appears: Non-toxic, Other (Lethargic) Skin: Normal Color, Warm, Dry Head: Atraumatic, Normacephalic Eye(s): bilateral: Normal Inspection, PERRL, EOMI Oral Mucosa: Moist Chest: Symmetrical, No Tenderness Cardiovascular: Rhythm Regular, No Murmur Respiratory: Normal Breath Sounds, No Rales, No Rhonchi, No Wheezing Gastrointestinal/Abdominal: Soft, No Tenderness Neurological/Psych: Oriented x3, Normal Speech, Normal Cognition, Normal Motor, Normal Sensation, Other (No focal deficits) ED Course And Treatment - Laboratory Results Result Diagrams: 11/02/16 21:13 11/02/16 21:13 Lab Interpretation: Abnormal (+ mild elev glu, trop neg.) ECG: Interpreted By [place] ECG Rhythm: Sinus Tachycardia ECG Interpretation: Abnormal Rate From EC O2 Sat by Pulse Oximetry: 99 Pulse Ox Interpretation: Normal - Radiology CXR: Interpreted by Me CXR Interpretation: Yes: No Acute Disease - Other Rad hea CT X-Ray: Read By Radiologist (no acute findings.) Progress Note: IVF, zosyn, ASA OK, Tylenol OK, Reevaluation Time: 22:44 Reassessment Condition: Improved (back to baseline behavior per son @ bedside. no neuro deficits) - Physician Consult Information Outcome Of Conversation: 2239: d/w Dr. Renae- PMD, asks to please adm to Hospitalists as he did 09/11. 2244: d/w Dr. Tirado, Hospitalist Voucher Examiner- ok to Tele obs NIHSS Stroke Scale - Date/Time Evaluation Performed Date Performed: 11/02/16 Time Performed: 20:40 When Was NIHSS Performed: Baseline - How Severe is the Stoke Level of Consciousness: 2=Obtunded LOC to Questions: 2=Neither correct LOC to commands: 2=Neither correct Best Gaze: 0=Normal Visual: 0=No visual loss Facial: 0=Normal Motor Arm - Left: 0=No drift Motor Arm - Right: 0=No drift Motor Leg - Left: 0=No drift Motor Leg - Right: 0=No drift Limb Ataxia: 0=Absent Sensory: 0=Normal Best Language: 2=Severe aphasia Dysarthia: 0=Normal articulation Extinction & Inattention (Neglect): 0=Normal, no object Score: 8 Severity Of Stroke: 5-15= Moderate Stroke rTPA Inclusion/Exclusion - Refusal of Treatment Patient Refused Treatment: No - Inclusion Criteria for Altepase Patient is 18 years or Older: Yes The Clinical Diagnosis of Ischemic Stroke That is Causing a Potentially Disabling Neurological Deficit: Yes Time of Onset is Well Established to be Less Than 270 Minute Before Treatment Would Begin: Yes Risk/Benefit Discussed With Patient/Family Member Present: No - Exclusion Criteria for Altepase Uncontrolled Hypertension at Time of Treatment (Systolic BP above 185 or Diastolic BP above 110 mmHg): No Known Bleeding Diathesis Including but Not Limited to: Platelets Below 100,000/ mm,PTT Above 40 sec After Heparin Use, Current Use of Oral Anitcoagulant With INR Greater Than 1.7 or PT Greater Than 15 secs: No Evidence of an Intracranial Hemorrhage: No Evidence of Major Acute Infarct With Signs Greater Than 1/3 MCA Territory: No Suspicion of Subarachnoid Hemorrhage on Pretreatment Evaluation Even if CT Head Negative For Hemorrhage: No - Warning to TPA With Conditions Condition: Stroke Serevity Too Mild, Age Greater Than 75 years Medical Decision Making Medical Decision Making: recurent UTI with fever and brief syncopal episode, treated as Code Stroke with no acute head CT findings, + UTI, + lactate 3.2 NIH 8 but symptoms resolved quickly and age disqualified for TPA false normal leukocyte count but L-shifted c/w infection Disposition Doctor Will See Patient In The: Hospital Counseled Patient/Family Regarding: Studies Performed, Diagnosis - Disposition Disposition: HOSPITALIZED Disposition Time: 22:51 Condition: GOOD - POA Core Measure Indicators: Code Stroke - Clinical Impression Clinical Impression: Syncope, UTI (urinary tract infection), Fever - Scribe Statement The provider has reviewed the documentation as recorded by the Scribe Sean Denton All medical record entries made by the Shirleneibluis enrique were at my direction and personally dictated by me. I have reviewed the chart and agree that the record accurately reflects my personal performance of the history, physical exam, medical decision making, and the department course for this patient. I have also personally directed, reviewed, and agree with the discharge instructions and disposition.
[2016-11-02 22:18] LABS: RBC URINE 5 /hpf (0-3); URINE BACTERIA MANY (<OCC); URINE BILIRUBIN NEGATIVE (NEGATIVE); URINE BLOOD 1+ (NEGATIVE); URINE COLOR Yellow (YELLOW); URINE GLUCOSE (UA) 2+ mg/dL (Normal); URINE KETONE NEGATIVE (NEGATIVE); URINE LEUKOCYTE ESTERASE 3+ Leu/uL (Negative); URINE PROTEIN 1+ mg/dL (NEGATIVE); URINE UROBILINOGEN NORMAL mg/dL (0.2-1.0); WBC CLUMPS FEW /hpf; WBC URINE 241 /hpf (0-5)
[2016-11-02] MEDS: cefTRIAXone IV 1 gm in Dextros 50 ML IV ONE ×2 (22:32→22:36)
[2016-11-02] MEDS ORDERED: cefTRIAXone IV 1 gm in Dextros 50 ML IVPB ONE (22:34)
--- NOTE | 2016-11-03 01:20 | CP.PCM.HP ---
<Sukhi Ba - Last Filed: 11/03/16 06:07> History of Present Illness - History of Present Illness History of Present Illness: CC: weakness and aphasia HPI: 81 year old female with PMHx significant for Diabetes, Hyperlipidemia, Hypothyroidism and arthritis presents with chief complaint of weakness and transient aphasia which occurred around 7 pm just prior to arrival in ED. Patient was found by her who stated patient was unable to speak nor move her arms. stated that his exhibited similar symptoms approximately two months ago and was evaluated in the hospital here. was concerned and thus dialed 911 and was transported here. states that his 's mouth appeared twisted initially when he first saw her, but then the presentation resolved. Patient admits to left sided frontal headache, shortness of breath, as well as dysuria and urinary frequency of approx 1 month duration. Patient denies subjective fevers or chills, trauma, loss of consciousness, nausea, vomiting, diarrhea , constipation, abdominal pain, changes in vision, paresthesias, chest pain or palpitations at this time. PMHx: as stated above PSHx: carotid endarterectomy by Dr. Thomas Family Hx: Reviewed and noncontributory Medications: ASA 81 mg, Lantus 15 units at night, Neurontin 300 mg Po BID, Synthroid 100 mcg in AM, Glipizide 10 mg AC, Lipitor 40 mg HS Social Hx: denies current alcohol, tobacco, drug abuse. Lives with . Decreased mobility but ambulates with a cane Allergies: NKDA PMD: Dr. Eduarda Renae In ED, Code Stroke was called. Initial NIHSS stroke scale 8. Patient not a considerable candidate due to progressing resolution of symptoms as well as age of 81. Present on Admission - Present on Admission Any Indicators Present on Admission: No Review of Systems - Constitutional Constitutional: As Per HPI, Headache, Weakness - EENT Eyes: As Per HPI. absent: Blurred Vision, Change in Vision - Cardiovascular Cardiovascular: As Per HPI. absent: Chest Pain, Chest Pain at Rest, Dyspnea - Respiratory Respiratory: As Per HPI, Dyspnea - Gastrointestinal Gastrointestinal: absent: Abdominal Pain, Nausea, Vomiting - Musculoskeletal Musculoskeletal: Abnormal Gait, Limited Range of Motion - Integumentary Integumentary: Rash - Neurological Neurological: As Per HPI, Abnormal Gait, Headaches, Weakness Past Patient History - Infectious Disease Hx of Infectious Diseases: None - Past Medical History & Family History Past Medical History?: Yes - Past Social History Smoking Status: Never Smoked Alcohol: None Drugs: Denies Home Situation {Lives}: With Family - CARDIAC Hx Hypercholesterolemia: Yes Hx Hypertension: Yes - PULMONARY Hx Respiratory Disorders: No - NEUROLOGICAL Hx Neurological Disorder: No - HEENT Hx HEENT Problems: No - RENAL Hx Chronic Kidney Disease: No - ENDOCRINE/METABOLIC Hx Hyperthyroidism: Yes Hx Hypothyroidism: Yes - HEMATOLOGICAL/ONCOLOGICAL Hx Blood Disorders: No - INTEGUMENTARY Hx Dermatological Problems: No - MUSCULOSKELETAL/RHEUMATOLOGICAL Hx Arthritis: Yes - GASTROINTESTINAL Hx Gastrointestinal Disorders: No - GENITOURINARY/GYNECOLOGICAL Hx Genitourinary Disorders: Yes Hx Urinary Tract Infection: Yes - PSYCHIATRIC Hx Substance Use: No - SURGICAL HISTORY Hx Carotid Endarterectomy: Yes - ANESTHESIA Hx Anesthesia: Yes Hx Anesthesia Reactions: No Meds Allergies/Adverse Reactions: Allergies Allergy/AdvReac Type Severity Reaction Status Date / Time No Known Allergies Allergy Verified 11/02/16 20:45 Physical Exam - Constitutional Appears: Non-toxic, No Acute Distress - Head Exam Head Exam: ATRAUMATIC, NORMAL INSPECTION - Eye Exam Eye Exam: EOMI Additional comments: pupils sluggish in reaction to light stimuli - ENT Exam ENT Exam: Mucous Membranes Moist - Neck Exam Neck exam: Positive for: Full Rom - Respiratory Exam Respiratory Exam: NORMAL BREATHING PATTERN. absent: Wheezes - Cardiovascular Exam Cardiovascular Exam: +S1, +S2, Systolic Murmur - GI/Abdominal Exam GI & Abdominal Exam: Normal Bowel Sounds, Soft. absent: Tenderness - Extremities Exam Extremities exam: Positive for: pedal pulses present. Negative for: calf tenderness, full ROM (in LUE, bilateral lower extremities), tenderness - Back Exam Back exam: absent: FULL ROM - Neurological Exam Neurological exam: Alert, Oriented x3 - Expanded Neurological Exam Expanded Patient oriented to: person, place Cranial nerves: Facial Sensation: Normal, Tongue Deviation: Normal Upper motor neuron: Yahir Neglect: Normal, Pronator Drift: Abnormal Left, Abnormal Right, Sensory Extinction: Normal Sensory exam: Lower Extremity 2 Point Discrimination: Normal, Lower Extremity Light Touch: Normal, Upper Extremity 2 Point Discrimination: Normal, Upper Extremity Light Touch: Normal Neuro motor strength exam: Left Upper Extremity: 3, Right Upper Extremity: 4, Left Lower Extremity: 2/1, Right Lower Extremity: 2/1 - Psychiatric Exam Psychiatric exam: Normal Affect, Normal Mood - Skin Skin Exam: Dry, Rash, Warm Additional comments: rash on left side of neck (sternocleidomastoid) Results - Vital Signs Recent Vital Signs: Last Vital Signs Temp 99.3 F 11/03/16 00:03 Pulse 94 H 11/03/16 00:03 Resp 20 11/03/16 00:03 BP 128/52 L 11/03/16 00:03 Pulse Ox 99 11/03/16 00:20 - Labs Result Diagrams: 11/03/16 04:23 11/03/16 04:23 Assessment & Plan - Assessment and Plan (Free Text) Assessment: Suspected CVA Code Stroke called in the ED Initial weakness and aphasia - Resolving Head CT- atrophy and small vessel disease; No apparent evidence of brain bleed. Refer to full report. F/U MRI, MRA, carotid studies -Lipid panel Triglycerides 165, WNL -ASA 81mg po daily, Crestor 20mg PO HS -NPO until patient passes speech / swallow eval -Fall risk, Aspiration precautions, PT/OT -Neurocheck q4 -F/U Dr. Sullivan (Neurology) reccs UTI -UA positive -f/u urine culture -f/u blood culture -Ceftriaxone and Zosyn given in ED -Zosyn Q6 for broad spectrum coverage of recurrent UTI (treated within the last two months) until UC results -NS @ 75 cc/hr Uncontrolled DM2 -HgbA1c 8.4 on admission, decreased from 9.6 on prior admission -ISS low dose -Accuchecks -Neurontin 300mg po bid -Lantus 15U hs -Will hold on Glipizide as patient is not currently eating. Hx Hypercholesterolemia -Lipid panel WNL on admission -Crestor 10mg po hs Hx Hypothyroidism -Synthroid 100mcg po daily PPX -GI Prophylaxis not currently indicated -Heparin SC Q12 -SCDs -Neurochecks <Blair Tirado - Last Filed: 11/03/16 06:30> Results - Vital Signs Recent Vital Signs: Last Vital Signs Temp 98.8 F 11/03/16 05:41 Pulse 88 11/03/16 05:41 Resp 16 11/03/16 05:41 BP 128/53 L 11/03/16 05:41 Pulse Ox 99 11/03/16 05:41 - Labs Result Diagrams: 11/03/16 04:23 11/03/16 04:23 Labs: Laboratory Results - last 24 hr 11/03/16 11/03/16 11/03/16 02:57 04:23 04:23 WBC 14.4 H D RBC 3.65 L Hgb 12.1 Hct 36.0 MCV 98.6 MCH 33.2 H MCHC 33.7 RDW 14.1 Plt Count 158 MPV 8.1 Neut % (Auto) 77.0 H Lymph % (Auto) 16.2 L [place] % (Auto) 6.2 Eos % (Auto) 0.2 Baso % (Auto) 0.4 Neut # 11.1 H Lymph # 2.3 [place] # 0.9 H Eos # 0.0 Baso # 0.1 Sodium 140 Potassium 4.5 Chloride 105 Carbon Dioxide 20 L Anion Gap 20 BUN 21 H Creatinine 1.1 Est GFR ( Amer) 58 Est GFR (Non-Af Amer) 48 POC Glucose (mg/dL) 107 Random Glucose 98 Calcium 8.8 Phosphorus 4.2 Magnesium 1.9 Total Bilirubin 1.3 AST 24 ALT 28 Alkaline Phosphatase 94 Total Protein 7.9 Albumin 3.7 Globulin 4.2 H Albumin/Globulin Ratio 0.9 L Assessment & Plan - Date & Time Date: 11/03/16 (I have seen and examined the patient. I agree with the findings and plan of care as documented by Dr. Ba. Patient with CVA/TIA. Check MRI brain in AM. Neuro consult. PT/OT. Fall precautions. Zosyn for UTI. Check urine and blood cultures. Continue home meds for history of diabetes. NISS and accuchecks. Monitor for acute changes.) Time: 06:29 Attending/Attestation - Attestation I have personally seen and examined this patient.: Yes I have fully participated in the care of the patient.: Yes I have reviewed all pertinent clinical information: Yes
[2016-11-03 04:33] LABS: BASO # 0.1 K/uL (0.0-0.2); BASO % 0.4 % (0.0-2.0); EOS % 0.2 % (0.0-4.0); LYMPH # 2.3 K/uL (1.0-4.3); LYMPH % 16.2 % (20.0-40.0); MEAN CELL VOLUME 98.6 fL (81.0-99.0); MEAN CORPUSCULAR HEMOGLOBIN 33.2 pg (27.0-31.0); MEAN CORPUSCULAR HGB CONC 33.7 g/dL (33.0-37.0); MEAN PLATELET VOLUME 8.1 fL (7.2-11.7); MONO # 0.9 K/uL (0.0-0.8); MONO % 6.2 % (0.0-10.0); NRBC % 0.1 % (0.0-2.0); RED CELL DISTRIBUTION WIDTH 14.1 % (11.5-14.5); WHITE BLOOD COUNT 14.4 K/uL (4.8-10.8)
[2016-11-03 04:35] LABS: POTASSIUM 4.5 mmol/L (3.6-5.2)
[2016-11-03 04:37] LABS: ALB/GLOB RATIO 0.9 (1.0-2.1); BILIRUBIN,TOTAL 1.3 mg/dL (0.2-1.3); PHOSPHOROUS 4.2 mg/dL (2.5-4.5); TOTAL PROTEIN 7.9 g/dL (6.3-8.3)
[2016-11-03 04:38] LABS: CALCIUM 8.8 mg/dl (8.6-10.4); MAGNESIUM 1.9 mg/dL (1.6-2.3)
[2016-11-03] MEDS ORDERED: Sodium Chloride 0.9% 1,000 ML IV SCH (05:45)
[2016-11-03] MEDS ORDERED: Piperacill/Tazo 3.375gm in Dex 3.375 GM/50 ML BAG IVPB SCH (06:15)
[2016-11-03] MEDS: (Novolog) Insulin Aspart, Recombinant 100 u/ml 10 ml vial SC SCH ×4 (08:18→21:38)
--- NOTE | 2016-11-03 08:22 | RAD ---
HISTORY: Admission film COMPARISON: 09/07/2016 FINDINGS: LUNGS: Nodular density projecting at the right lung apex may represent nodule versus granuloma versus confluence of shadows of the ribs and vessels. This was not well appreciated on the prior study. Diffuse increased interstitial lung markings suggestive for infiltrate and or edema. More patchy consolidative changes at the right lung apex and left lung base. PLEURA: As above. CARDIOVASCULAR: Tortuous ectatic aorta. Mild cardiomegaly. OSSEOUS STRUCTURES: Degenerative changes in the spine and shoulders. VISUALIZED UPPER ABDOMEN: Normal. OTHER FINDINGS: None. IMPRESSION: Nodular density projecting at the right lung apex may represent nodule versus granuloma versus confluence of shadows of the ribs and vessels. This was not well appreciated on the prior study. Diffuse increased interstitial lung markings suggestive for infiltrate and or edema. More patchy consolidative changes at the right lung apex and left lung base.
[2016-11-03] MEDS ORDERED: Piperacillin/Tazobact 3.375 GM in Sodium Chloride 100 ML IVPB SCH (11:15)
[2016-11-03 11:49] LABS: VENOUS BLOOD GAS PCO2 42 mmHg (40-60); VENOUS BLOOD PH 7.34 (7.32-7.43)
--- NOTE | 2016-11-03 13:17 | MRI ---
PROCEDURE: MR Angiography of the neck without contrast HISTORY: stroke COMPARISON: None available. TECHNIQUE: 3D [id number] angiography of the neck was performed. Rotating maximum intensity projection images of the cervical carotid and vertebral arteries were generated. The origins of the common carotid arteries were not visualized, which is a limitation inherent to the non-contrast time of flight technique. FINDINGS: RIGHT CAROTID ARTERIES: Common Carotid Artery: Normal. Carotid Bifurcation: Limited atherosclerotic plaques noted at the carotid bulb. Internal Carotid Artery:Mild stenosis is identified proximally with a right ICA patent in the neck. External Carotid Artery (proximal branches): Likely high grade stenosis identified proximally with the artery patent nevertheless. LEFT CAROTID ARTERIES: Common Carotid Artery: Normal. Carotid Bifurcation: Mild-atherosclerotic plaque is identified at the bulb. Internal Carotid Artery:The limited proximal stenosis identified with the left ICA widely patent nevertheless. External Carotid Artery (proximal branches): No significant stenosis identified. VERTEBRAL ARTERIES: Right Vertebral Artery: Patent at the proximal to mid cervical segment, otherwise limited in evaluation. Left Vertebral Artery: Patent at the proximal to mid cervical segment, otherwise limited in evaluation. OTHER FINDINGS: None. IMPRESSION: 1. Mild right and minimal left internal carotid artery stenoses are identified proximally. 2. Trace right and mild left carotid bulb plaque. 3. Distal cervical vertebral artery segments artifact and limited evaluation bilaterally.
--- NOTE | 2016-11-03 13:21 | CP.PCM.CON ---
History of Present Illness - History of Present Illness History of Present Illness: Mrs. Beebe is an 81-year-old woman with a past medical history of HTN, HLD, DM and hypothyroidism who was at her usual state of health yesterday at around 5 PM , but then stated she felt weak/tired and wanted to go to bed. Her son was with her and took her to bed. About an hour later, he went to check on her and found her confused with generalized weakness and inability to move. He brought her in to the ED where she was noted to be unable to express herself and had inability to move. She was not following commands. Within an hour, she improved and was back to her baseline within two hours with only residual confusion and inability to recall the event. According to the son, the patient has had two previous episodes similar to this one in the past. The most recent one was associated with a UTI. Currently, the patient has no complaints and is back to baseline. However, she states that for the past two weeks she has been having symptoms of dysuria, urgency and hesitancy. Review of Systems - Review of Systems All systems: reviewed and no additional remarkable complaints except Past Patient History - Infectious Disease Hx of Infectious Diseases: None - Past Medical History & Family History Past Medical History?: Yes - Past Social History Smoking Status: Never Smoked Alcohol: None Drugs: Denies Home Situation {Lives}: With Family - CARDIAC Hx Hypertension: Yes - PULMONARY Hx Respiratory Disorders: No - NEUROLOGICAL HX Cerebrovascular Accident: Yes (old) - HEENT Hx HEENT Problems: No - RENAL Hx Chronic Kidney Disease: No - ENDOCRINE/METABOLIC Hx Hyperthyroidism: Yes Hx Hypothyroidism: Yes - HEMATOLOGICAL/ONCOLOGICAL Hx Blood Disorders: No - INTEGUMENTARY Hx Dermatological Problems: No - MUSCULOSKELETAL/RHEUMATOLOGICAL Hx Arthritis: Yes - GASTROINTESTINAL Hx Gastrointestinal Disorders: No - GENITOURINARY/GYNECOLOGICAL Hx Genitourinary Disorders: Yes Hx Urinary Tract Infection: Yes - PSYCHIATRIC Hx Substance Use: No - SURGICAL HISTORY Hx Carotid Endarterectomy: Yes - ANESTHESIA Hx Anesthesia: Yes Hx Anesthesia Reactions: No Meds Allergies/Adverse Reactions: Allergies Allergy/AdvReac Type Severity Reaction Status Date / Time No Known Allergies Allergy Verified 11/02/16 20:45 - Medications Medications: Current Medications Aspirin (Ecotrin) 81 mg PO DAILY [facility] Gabapentin (Neurontin) 300 mg PO BID [facility] Heparin Sodium (Porcine) (Heparin) 5,000 units SC Q12 [facility] Sodium Chloride (Sodium Chloride 0.9%) 1,000 mls @ 75 mls/hr IV .[id number] [facility] Last Admin: 11/03/16 06:24 Dose: 75 mls/hr Piperacillin Sod/Tazobactam Sod (Zosyn 2.25 Gm Iv Premix) 2.25 gm in 50 mls @ 100 mls/hr IVPB Q6 [facility] Vancomycin/Sodium Chloride (Vancocin) 1 gm in 200 mls @ 133.333 mls/hr IVPB DAILY@1300 [facility] Stop: 11/08/16 13:01 Insulin Aspart (Novolog) 0 unit SC ACHS [facility] PRN Reason: Protocol Last Admin: 11/03/16 08:18 Dose: Not Given Insulin Glargine (Lantus) 15 unit SC HS [facility] Levothyroxine Sodium (Synthroid) 100 mcg PO DAILY@0630 [facility] Rosuvastatin Calcium (Crestor) 20 mg PO HS [facility] Physical Exam - Constitutional Appears: Well - Head Exam Head Exam: ATRAUMATIC, NORMAL INSPECTION, NORMOCEPHALIC - Eye Exam Eye Exam: EOMI, Normal appearance, PERRL - ENT Exam ENT Exam: Mucous Membranes Moist, Normal Exam - Respiratory Exam Respiratory Exam: Clear to Auscultation Bilateral, NORMAL BREATHING PATTERN - Cardiovascular Exam Cardiovascular Exam: REGULAR RHYTHM, +S1, +S2 - GI/Abdominal Exam GI & Abdominal Exam: Normal Bowel Sounds, Soft. absent: Tenderness - Rectal Exam Rectal Exam: Deferred - Extremities Exam Extremities exam: Positive for: normal inspection - Back Exam Back exam: NORMAL INSPECTION - Neurological Exam Neurological exam: Abnormal Gait, Alert, CN II-XII Intact, Oriented x3, Reflexes Normal - Expanded Neurological Exam Expanded Patient oriented to: person, place, time Cranial nerves: Facial Palsey w/Forehead Movement: Normal, Gag Reflex: Normal, Nystagmus: Normal Ataxia: No Cerebellar Function: Finger to Nose: Normal, Heel to Ott: Normal Upper motor neuron: Babinski Sign: Normal Sensory exam: Lower Extremity Light Touch: Abnormal Left, Lower Extremity Pin Prick: Normal, Upper Extremity Light Touch: Abnormal Left, Upper Extremity Pin Prick: Normal Neuro motor strength exam: Left Upper Extremity: 4, Right Upper Extremity: 4, Left Lower Extremity: 4, Right Lower Extremity: 4 DTR: Achilles Tendon Left: 2+, Achilles Tendon Right: 2+, Bicep Left: 2+, Bicep Right: 2+, Brachioradialis Left: 2+, Brachioradialis Right: 2+, Patellar Left: 2 +, Patellar Right: 2+, Tricep Left: 2+, Tricep Right: 2+ - Psychiatric Exam Psychiatric exam: Normal Affect, Normal Mood - Skin Skin Exam: Dry, Intact, Normal Color, Warm Results - Vital Signs Recent Vital Signs: Last Vital Signs Temp 98.9 F 11/03/16 10:10 Pulse 94 H 11/03/16 09:26 Resp 16 11/03/16 09:26 BP 142/54 L 11/03/16 09:26 Pulse Ox 99 11/03/16 09:26 - Labs Result Diagrams: 11/03/16 04:23 11/03/16 04:23 Labs: Laboratory Results - last 24 hr 11/03/16 11/03/16 11/03/16 02:57 04:23 04:23 WBC 14.4 H D RBC 3.65 L Hgb 12.1 Hct 36.0 MCV 98.6 MCH 33.2 H MCHC 33.7 RDW 14.1 Plt Count 158 MPV 8.1 Neut % (Auto) 77.0 H Lymph % (Auto) 16.2 L [place] % (Auto) 6.2 Eos % (Auto) 0.2 Baso % (Auto) 0.4 Neut # 11.1 H Lymph # 2.3 [place] # 0.9 H Eos # 0.0 Baso # 0.1 pO2 VBG pH VBG pCO2 VBG HCO3 VBG Total CO2 VBG O2 Sat (Calc) VBG Base Excess VBG Potassium Glucose Lactate Sodium 140 Potassium 4.5 Chloride 105 Carbon Dioxide 20 L Anion Gap 20 BUN 21 H Creatinine 1.1 Est GFR ( Amer) 58 Est GFR (Non-Af Amer) 48 POC Glucose (mg/dL) 107 Random Glucose 98 Calcium 8.8 Phosphorus 4.2 Magnesium 1.9 Total Bilirubin 1.3 AST 24 ALT 28 Alkaline Phosphatase 94 Total Protein 7.9 Albumin 3.7 Globulin 4.2 H Albumin/Globulin Ratio 0.9 L TSH 3rd Generation Venous Blood Potassium 11/03/16 11/03/16 11/03/16 08:15 11:25 11:46 WBC RBC Hgb Hct MCV MCH MCHC RDW Plt Count MPV Neut % (Auto) Lymph % (Auto) [place] % (Auto) Eos % (Auto) Baso % (Auto) Neut # Lymph # [place] # Eos # Baso # pO2 29 L VBG pH 7.34 VBG pCO2 42 VBG HCO3 21.3 VBG Total CO2 24.0 VBG O2 Sat (Calc) 61.6 VBG Base Excess -3.0 L VBG Potassium 4.4 Glucose 127 H Lactate 1.8 Sodium 138.0 Potassium Chloride 111.0 H Carbon Dioxide Anion Gap BUN Creatinine Est GFR ( Amer) Est GFR (Non-Af Amer) POC Glucose (mg/dL) 127 H Random Glucose Calcium Phosphorus Magnesium Total Bilirubin AST ALT Alkaline Phosphatase Total Protein Albumin Globulin Albumin/Globulin Ratio TSH 3rd Generation 0.08 L Venous Blood Potassium 4.4 - Imaging and Cardiology MRI - head Status: Image reviewed by me (Diffuse white matter disease out of proportion for age and involves both hemispheres in the subcortical white matter regions.) Assessment & Plan (1) Acute encephalopathy Assessment and Plan: The description of the episode along with the MRI findings is concerning for possible seizure activity. This could all be toxic encephalopathy due to UTI, but I recommend obtaining an EEG for further evaluation. Continue treatment for underlying infection, continue adequate hydration with NS at 100 mL/hr. DVT Px, PT/OT eval and treat. Thank you. Status: Resolved Priority: Medium
--- NOTE | 2016-11-03 13:29 | MRI ---
PROCEDURE: Magnetic Resonance Angiography Brain HISTORY: stroke COMPARISON: None available. TECHNIQUE: 3D time of flight MR angiography of the intracranial arteries was performed. Rotating maximum intensity projection images were generated. FINDINGS: INTERNAL CEREBRAL ARTERIES: Skull base artifacts encountered at the insistence of the bilateral internal carotid arteries. A moderate stenosis is not excluded at the proximal intra canalicular segment of the left internal carotid artery. The bilateral cavernous internal carotid segments appear widely patent through the bifurcations. ANTERIOR CEREBRAL ARTERIES: A1 and A2 segments are widely patent. All vessels are seen looping off the proximal right A1 OLU segment with no definite aneurysm identified. Smaller distal branches unremarkable, as visualized. MIDDLE CEREBRAL ARTERIES: Unremarkable. M1 and M2 segments are widely patent. Perisylvian branches grossly symmetric. POSTERIOR CIRCULATION: Basilar Artery: There is a questionable fenestration of proximal basilar artery (or possible distal bilateral vertebral artery tortuosity) which is otherwise unremarkable. Distal Vertebral Arteries: Unremarkable. Posterior Cerebral Arteries: Unremarkable. Posterior Inferior Cerebellar Arteries: Not identified bilaterally. ANEURYSM/ VASCULAR MALFORMATIONS: None. OTHER FINDINGS: None. IMPRESSION: Potential moderate stenosis of the left proximal skull base ICA segment though this may be artifactual from the skullbase intrinsically. MR angiography of the brain otherwise appears unremarkable.
[2016-11-03] MEDS: Piperacill/Tazo 2.25gm in Dex 2.25 GM/50 ML BAG IVPB SCH ×2 (13:41→17:45)
--- NOTE | 2016-11-03 13:41 | MRI ---
PROCEDURE: MRI BRAIN WITHOUT CONTRAST HISTORY: stroke COMPARISON: Brain MRI 09/08/2016. TECHNIQUE: Multiplanar, multisequence MR images of the brain were obtained without intravenous contrast enhancement. FINDINGS: HEMORRHAGE: None DWI: No evidence of an acute or early subacute infarction. Motion artifact artifact sequence. BRAIN PARENCHYMA: Extensive white matter changes are seen diffusely throughout the cerebral hemispheres with some sparing of the internal capsules bilaterally once again. The exists appearance is stable and may reflect extensive chronic microangiopathy though other etiologies including metabolic disorder not completely excluded. History blotchy areas also reiterated. There is no mass effect or suspicious extra-axial fluid collection identified. 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 Bilateral thalamic and left caudate head chronic lacunes no definite acute intracranial findings as discussed above. VENTRICLES: Unremarkable. No hydrocephalus. CRANIUM: Unremarkable. ORBITS: Grossly unremarkable. PARANASAL SINUSES/MASTOIDS: Clear VASCULAR SYSTEM: Skull base flow voids intact. OTHER FINDINGS: None. IMPRESSION: Extensive white matter changes suggestive of advanced chronic microangiopathy air again identified though other etiologies including chronic metabolic dyscrasia is not completely excluded. Bithalamic and left caudate head chronic lacunes are again noted. No definite acute intracranial findings. Exam stable compared to 09/08/2016.
[2016-11-03] MEDS: Vancomycin 1 gm/NS 200 ml 1 GM/200 ML BAG IVPB SCH (14:25)
--- NOTE | 2016-11-03 19:17 | CARD ---
APPROVED REPORT EKG Measurement Heart [id number] <Conclusion> Sinus tachycardia Left axis deviation Abnormal ECG
[2016-11-03] MEDS: Sodium Chloride 0.9% 1,000 ML IV SCH (19:19)
[2016-11-03] MEDS: (Lantus) Insulin Glargine, Recombinant SC SCH (21:48)
--- NOTE | 2016-11-03 22:14 | CP.PCM.PN ---
<Edin Gomez - Last Filed: 11/03/16 22:15> Subjective - Date & Time of Evaluation Date of Evaluation: 11/03/16 Time of Evaluation: 19:00 - Subjective Subjective: PGY-[address] Gali Rubio Patient seen and examined at bedside. Patient reports feeling better since this morning. Patient does not currently complain of dysuria. Patient denies fevers, chills, n/v/c/d, chest pain, SOB, abdominal pain. Objective - Vital Signs/Intake and Output Vital Signs (last 24 hours): Temp Pulse Resp BP Pulse Ox 98.2 F 95 H 20 153/68 H 95 11/03/16 15:00 11/03/16 20:23 11/03/16 15:00 11/03/16 21:11 11/03/16 15:00 - Medications Medications: Current Medications Amlodipine Besylate (Norvasc) 5 mg PO DAILY [facility] Aspirin (Aspirin Chewable) 81 mg PO DAILY [facility] Last Admin: 11/03/16 13:41 Dose: 81 mg Gabapentin (Neurontin) 300 mg PO BID [facility] Last Admin: 11/03/16 17:45 Dose: 300 mg Heparin Sodium (Porcine) (Heparin) 5,000 units SC Q12 [facility] Last Admin: 11/03/16 21:49 Dose: 5,000 units Piperacillin Sod/Tazobactam Sod (Zosyn 2.25 Gm Iv Premix) 2.25 gm in 50 mls @ 100 mls/hr IVPB Q6 [facility] Last Admin: 11/03/16 17:45 Dose: 100 mls/hr Vancomycin/Sodium Chloride (Vancocin) 1 gm in 200 mls @ 133.333 mls/hr IVPB DAILY@1300 [facility] Stop: 11/08/16 13:01 Last Admin: 11/03/16 14:25 Dose: 133.333 mls/hr Sodium Chloride (Sodium Chloride 0.9%) 1,000 mls @ 30 mls/hr IV .Q24H [facility] Last Admin: 11/03/16 19:19 Dose: 30 mls/hr Insulin Aspart (Novolog) 0 unit SC ACHS [facility] PRN Reason: Protocol Last Admin: 11/03/16 21:38 Dose: Not Given Insulin Glargine (Lantus) 15 unit SC HS [facility] Last Admin: 11/03/16 21:48 Dose: 15 units Levothyroxine Sodium (Synthroid) 100 mcg PO DAILY@0630 [facility] Rosuvastatin Calcium (Crestor) 20 mg PO HS [facility] Last Admin: 11/03/16 21:49 Dose: 20 mg - Labs Labs: 11/03/16 04:23 11/03/16 04:23 PT 11.7 SECONDS (9.7-12.2) 11/02/16 21:13 INR 1.0 11/02/16 21:13 APTT 24 SECONDS (21-34) 11/02/16 21:13 - Constitutional Appears: No Acute Distress - Head Exam Head Exam: ATRAUMATIC, NORMAL INSPECTION, NORMOCEPHALIC - Eye Exam Eye Exam: EOMI, PERRL - ENT Exam ENT Exam: Mucous Membranes Moist - Respiratory Exam Respiratory Exam: Clear to Ausculation Bilateral. absent: Rales, Rhonchi, Wheezes - Cardiovascular Exam Cardiovascular Exam: REGULAR RHYTHM, +S1, +S2 - GI/Abdominal Exam GI & Abdominal Exam: Soft, Normal Bowel Sounds. absent: Tenderness - Back Exam Back Exam: absent: CVA tenderness (L), CVA tenderness (R) - Neurological Exam Neurological Exam: Alert, Awake, Oriented x3 - Skin Skin Exam: Dry, Intact, Normal Color, Warm Assessment and Plan - Assessment and Plan (Free Text) Plan: Suspected CVA Code Stroke called in the ED Initial weakness and aphasia - Resolving Head CT- atrophy and small vessel disease; No apparent evidence of brain bleed. Refer to full report. F/U MRI, MRA, carotid studies -Lipid panel Triglycerides 165, WNL -ASA 81mg po daily, Crestor 20mg PO HS -NPO until patient passes speech / swallow eval -Fall risk, Aspiration precautions, PT/OT -Neurocheck q4 -F/U Dr. Sullivan (Neurology) reccs UTI UA positive f/u urine culture f/u blood culture Vancomycin and Zosyn Zosyn Q6 for broad spectrum coverage of recurrent UTI (treated within the last two months) until UC results NS @ 75 cc/hr Uncontrolled Diabetes -HgbA1c 8.4 on admission, decreased from 9.6 on prior admission -ISS low dose -Accuchecks -Neurontin 300mg po bid -Lantus 15U hs -Will hold on Glipizide as patient is not currently eating. History of Hypercholesterolemia -Lipid panel WNL on admission -Crestor 10mg po hs History of Hypothyroidism -Synthroid 100mcg po daily Prophylactic Measure -GI Prophylaxis not currently indicated -Heparin SC Q12 -SCDs -Neurochecks Case discussed with Dr. Gali Gomez PGY1 <Jacobo Rubio - Last Filed: 11/04/16 20:04> Objective - Vital Signs/Intake and Output Vital Signs (last 24 hours): Temp Pulse Resp BP Pulse Ox 97.5 F L 74 18 139/73 96 11/04/16 17:59 11/04/16 17:59 11/04/16 17:59 11/04/16 17:59 11/04/16 17:59 - Medications Medications: Current Medications Amlodipine Besylate (Norvasc) 5 mg PO DAILY [facility] Last Admin: 11/04/16 18:49 Dose: 5 mg Aspirin (Aspirin Chewable) 81 mg PO DAILY [facility] Last Admin: 11/04/16 09:52 Dose: 81 mg Gabapentin (Neurontin) 300 mg PO BID [facility] Last Admin: 11/04/16 17:15 Dose: 300 mg Heparin Sodium (Porcine) (Heparin) 5,000 units SC Q12 [facility] Last Admin: 11/04/16 09:52 Dose: 5,000 units Piperacillin Sod/Tazobactam Sod (Zosyn 2.25 Gm Iv Premix) 2.25 gm in 50 mls @ 100 mls/hr IVPB Q6 [facility] Last Admin: 11/04/16 17:15 Dose: 100 mls/hr Vancomycin/Sodium Chloride (Vancocin) 1 gm in 200 mls @ 133.333 mls/hr IVPB DAILY@1300 [facility] Stop: 11/08/16 13:01 Last Admin: 11/04/16 13:35 Dose: 133.333 mls/hr Sodium Chloride (Sodium Chloride 0.9%) 1,000 mls @ 30 mls/hr IV .Q24H [facility] Last Admin: 11/04/16 18:49 Dose: 30 mls/hr Insulin Aspart (Novolog) 0 unit SC ACHS [facility] PRN Reason: Protocol Last Admin: 11/04/16 17:15 Dose: 2 unit Insulin Glargine (Lantus) 15 unit SC HS [facility] Last Admin: 11/03/16 21:48 Dose: 15 units Levetiracetam (Keppra) 250 mg PO BID [facility] Last Admin: 11/04/16 17:15 Dose: 250 mg Levothyroxine Sodium (Synthroid) 100 mcg PO DAILY@0630 [facility] Last Admin: 11/04/16 07:08 Dose: 100 mcg Rosuvastatin Calcium (Crestor) 20 mg PO HS [facility] Last Admin: 11/03/16 21:49 Dose: 20 mg - Labs Labs: PT 11.7 SECONDS (9.7-12.2) 11/02/16 21:13 INR 1.0 11/02/16 21:13 APTT 24 SECONDS (21-34) 11/02/16 21:13 Attending/Attestation - Attestation I have personally seen and examined this patient.: Yes I have fully participated in the care of the patient.: Yes I have reviewed all pertinent clinical information, including history, physical exam and plan: Yes Notes (Text): 11/04/16 20:03 Patient was seen and examined in the ER on 11/03/16. History, Physical, Assessment and Plan were thoroughly gone over with the resident. Jacobo Rubio D.O.
[2016-11-04] MEDS: Piperacill/Tazo 2.25gm in Dex 2.25 GM/50 ML BAG IVPB SCH ×4 (00:07→17:15)
[2016-11-04] MEDS: Levothyroxine 100 MCG TAB PO SCH (07:08)
[2016-11-04] MEDS: (Novolog) Insulin Aspart, Recombinant 100 u/ml 10 ml vial SC SCH ×4 (08:57→21:40)
--- NOTE | 2016-11-04 09:09 | VASCLAB ---
PROCEDURE: HISTORY: stroke COMPARISON: None available. TECHNIQUE: Grayscale and duplex Doppler evaluation of the cervical carotid and vertebral arteries were performed. The common carotid, carotid bifurcations and cervical Internal Carotid Artery (ICA) and proximal External Carotid Artery (ECA) were evaluated. The vertebral arteries were evaluated for gross patency and flow direction. Report prepared by Sean Jimenes, BS, RVT FINDINGS: RIGHT CAROTID ARTERIES: 1. Common Carotid Artery: No significant focal plaque formation of the right common carotid artery. Maximum Peak Systolic velocity: 101 cm/sec: End-diastolic velocity 14 cm/sec. 2. Carotid Bifurcation: Calcific plaque formation. Maximum Peak Systolic velocity: 95 cm/sec: End-diastolic velocity 12 cm/sec. 3. Internal Carotid Artery: Moderate plaque formation of the right proximal ICA which does not results in hemodynamically significant stenosis. Plaque description: Calcific 3.1. Proximal Segment: Peak systolic velocity 160 cm/sec: End-diastolic velocity 37 cm/sec - % stenosis 16-49% 3.2. Middle Segment: Peak systolic velocity 135 cm/sec: End-diastolic velocity 34 cm/sec - % stenosis 0-15% 3.3. Distal Segment: Peak systolic velocity 76 cm/sec: End-diastolic velocity 16 cm/sec - % stenosis 0-15% 4. External Carotid Artery: No significant focal plaque formation. Peak systolic velocity 201 cm/sec 5. ICA/CCA Ratio: 1.6 LEFT CAROTID ARTERIES: 1. Common Carotid Artery: No significant focal plaque formation of the left common carotid artery. Maximum Peak Systolic velocity: 88 cm/sec: End-diastolic velocity 13 cm/sec. 2. Carotid Bifurcation: Heterogeneous plaque formation. Maximum Peak Systolic velocity: 94 cm/sec: End-diastolic velocity 17 cm/sec. 3. Internal Carotid Artery: Minimal plaque formation of the left proximal ICA which does not result in hemodynamically significant stenosis. Plaque description: Heterogeneous 3.1. Proximal Segment: Peak systolic velocity 114 cm/sec: End-diastolic velocity 15 cm/sec - % stenosis 0-15% 3.2. Middle Segment: Peak systolic velocity 89 cm/sec: End-diastolic velocity 18 cm/sec - % stenosis 0-15% 3.3. Distal Segment: Peak systolic velocity 89 cm/sec: End-diastolic velocity 23 cm/sec - % stenosis 0-15% 4. External Carotid Artery: No significant focal plaque formation. Peak systolic velocity 86 cm/sec 5. ICA/CCA Ratio: 1.3 VERTEBRAL ARTERIES: 1. Right Vertebral Artery: The right vertebral artery flow direction is antegrade. 2. Left Vertebral Artery: The left vertebral artery flow direction is antegrade. OTHER FINDINGS: 1. Right Brachial Blood pressure: 126 mmHg. 2. Left Brachial Blood pressure: 120 mmHg. IMPRESSION: RIGHT: 16-49% stenosis of the right proximal ICA with mild hemodynamic significance. LEFT: Duplex scan does not suggest hemodynamically significant stenosis of the left extracranial carotid arteries.
[2016-11-04 10:31] LABS: BASO # 0.1 K/uL (0.0-0.2); BASO % 0.9 % (0.0-2.0); EOS # 0.1 K/uL (0.0-0.7); EOS % 0.7 % (0.0-4.0); HEMATOCRIT 33.3 % (34.0-47.0); LYMPH # 2.1 K/uL (1.0-4.3); LYMPH % 24.2 % (20.0-40.0); MEAN CELL VOLUME 97.7 fL (81.0-99.0); MEAN CORPUSCULAR HEMOGLOBIN 33.1 pg (27.0-31.0); MEAN CORPUSCULAR HGB CONC 33.9 g/dL (33.0-37.0); MEAN PLATELET VOLUME 8.4 fL (7.2-11.7); MONO # 0.7 K/uL (0.0-0.8); MONO % 7.8 % (0.0-10.0); RED CELL DISTRIBUTION WIDTH 14.1 % (11.5-14.5); WHITE BLOOD COUNT 8.7 K/uL (4.8-10.8)
[2016-11-04 10:44] LABS: ALB/GLOB RATIO 0.8 (1.0-2.1); BILIRUBIN,TOTAL 1.5 mg/dL (0.2-1.3); CALCIUM 8.2 mg/dl (8.6-10.4); POTASSIUM 3.8 mmol/L (3.6-5.2); TOTAL PROTEIN 7.2 g/dL (6.3-8.3)
[2016-11-04] MEDS: Vancomycin 1 gm/NS 200 ml 1 GM/200 ML BAG IVPB SCH (13:35)
--- NOTE | 2016-11-04 16:13 | CP.PCM.CON ---
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) - HEENT Hx HEENT Problems: No - RENAL Hx Chronic Kidney Disease: No - ENDOCRINE/METABOLIC Hx Hyperthyroidism: Yes Hx Hypothyroidism: Yes - HEMATOLOGICAL/ONCOLOGICAL Hx Blood Disorders: No - INTEGUMENTARY Hx Dermatological Problems: No - MUSCULOSKELETAL/RHEUMATOLOGICAL Hx Arthritis: Yes Hx Falls: Yes - GASTROINTESTINAL Hx Gastrointestinal Disorders: No - GENITOURINARY/GYNECOLOGICAL Hx Genitourinary Disorders: Yes Hx Urinary Tract Infection: Yes - PSYCHIATRIC Hx Substance Use: No - SURGICAL HISTORY Hx Carotid Endarterectomy: Yes - ANESTHESIA Hx Anesthesia: Yes Hx Anesthesia Reactions: No Meds Allergies/Adverse Reactions: Allergies Allergy/AdvReac Type Severity Reaction Status Date / Time No Known Allergies Allergy Verified 11/02/16 20:45 - Medications Medications: Current Medications Amlodipine Besylate (Norvasc) 5 mg PO DAILY [facility] Aspirin (Aspirin Chewable) 81 mg PO DAILY [facility] Last Admin: 11/04/16 09:52 Dose: 81 mg Gabapentin (Neurontin) 300 mg PO BID [facility] Last Admin: 11/04/16 09:52 Dose: 300 mg Heparin Sodium (Porcine) (Heparin) 5,000 units SC Q12 [facility] Last Admin: 11/04/16 09:52 Dose: 5,000 units Piperacillin Sod/Tazobactam Sod (Zosyn 2.25 Gm Iv Premix) 2.25 gm in 50 mls @ 100 mls/hr IVPB Q6 [facility] Last Admin: 11/04/16 11:19 Dose: 100 mls/hr Vancomycin/Sodium Chloride (Vancocin) 1 gm in 200 mls @ 133.333 mls/hr IVPB DAILY@1300 [facility] Stop: 11/08/16 13:01 Last Admin: 11/04/16 13:35 Dose: 133.333 mls/hr Sodium Chloride (Sodium Chloride 0.9%) 1,000 mls @ 30 mls/hr IV .Q24H [facility] Last Admin: 11/03/16 19:19 Dose: 30 mls/hr Insulin Aspart (Novolog) 0 unit SC ACHS [facility] PRN Reason: Protocol Last Admin: 11/04/16 13:38 Dose: Not Given Insulin Glargine (Lantus) 15 [address] [facility] Last Admin: 11/03/16 21:48 Dose: 15 units Levetiracetam (Keppra) 250 mg PO BID [facility] Levothyroxine Sodium (Synthroid) 100 mcg PO DAILY@0630 [facility] Last Admin: 11/04/16 07:08 Dose: 100 mcg Rosuvastatin Calcium (Crestor) 20 mg PO [facility] Last Admin: 11/03/16 21:49 Dose: 20 mg Results - Vital Signs Recent Vital Signs: Last Vital Signs Temp 98.0 F 11/04/16 09:20 Pulse 80 11/04/16 09:20 Resp 18 11/04/16 09:20 BP 114/60 11/04/16 09:20 Pulse Ox 98 11/04/16 09:20 - Labs Result Diagrams: 11/04/16 10:26 11/04/16 10:26 Labs: Laboratory Results - last 24 hr 11/03/16 11/03/16 11/04/16 17:29 21:19 06:38 WBC RBC Hgb Hct MCV MCH MCHC RDW Plt Count MPV Neut % (Auto) Lymph % (Auto) [place] % (Auto) Eos % (Auto) Baso % (Auto) Neut # Lymph # [place] # Eos # Baso # Sodium Potassium Chloride Carbon Dioxide Anion Gap BUN Creatinine Est GFR ( Amer) Est GFR (Non-Af Amer) POC Glucose (mg/dL) 171 H 233 H 168 H Random Glucose Calcium Total Bilirubin AST ALT Alkaline Phosphatase Total Protein Albumin Globulin Albumin/Globulin Ratio 11/04/16 11/04/16 11/04/16 10:26 10:26 12:18 WBC 8.7 RBC 3.40 L Hgb 11.3 Hct 33.3 L MCV 97.7 MCH 33.1 H MCHC 33.9 RDW 14.1 Plt Count 154 MPV 8.4 Neut % (Auto) 66.4 Lymph % (Auto) 24.2 [place] % (Auto) 7.8 Eos % (Auto) 0.7 Baso % (Auto) 0.9 Neut # 5.8 Lymph # 2.1 [place] # 0.7 Eos # 0.1 Baso # 0.1 Sodium 137 Potassium 3.8 Chloride 103 Carbon Dioxide 21 L Anion Gap 17 BUN 17 Creatinine 1.1 Est GFR ( Amer) 58 Est GFR (Non-Af Amer) 48 POC Glucose (mg/dL) 161 H Random Glucose 164 H Calcium 8.2 L Total Bilirubin 1.5 H AST 26 ALT 31 Alkaline Phosphatase 88 Total Protein 7.2 Albumin 3.3 L Globulin 4.0 H Albumin/Globulin Ratio 0.8 L
--- NOTE | 2016-11-04 16:18 | CP.PCM.PN ---
Subjective - Date & Time of Evaluation Date of Evaluation: 11/04/16 Time of Evaluation: 16:14 - Subjective Subjective: Mrs. Beebe was seen and examined today at bedside. Her son and the primary team were in the room and I discussed with them the results of the EEG showing right temporal and parietal lobe epileptiform discharges most notable with photic stimulation. There were no seizures overnight. The patient appeared to be better today and was pleasant/compliant with the examination. There were no acute events overnight. Objective - Vital Signs/Intake and Output Vital Signs (last 24 hours): Temp Pulse Resp BP Pulse Ox 98.0 F 80 18 114/60 98 11/04/16 09:20 11/04/16 09:20 11/04/16 09:20 11/04/16 09:20 11/04/16 09:20 - Medications Medications: Current Medications Amlodipine Besylate (Norvasc) 5 mg PO DAILY [facility] Aspirin (Aspirin Chewable) 81 mg PO DAILY [facility] Last Admin: 11/04/16 09:52 Dose: 81 mg Gabapentin (Neurontin) 300 mg PO BID [facility] Last Admin: 11/04/16 09:52 Dose: 300 mg Heparin Sodium (Porcine) (Heparin) 5,000 units SC Q12 [facility] Last Admin: 11/04/16 09:52 Dose: 5,000 units Piperacillin Sod/Tazobactam Sod (Zosyn 2.25 Gm Iv Premix) 2.25 gm in 50 mls @ 100 mls/hr IVPB Q6 [facility] Last Admin: 11/04/16 11:19 Dose: 100 mls/hr Vancomycin/Sodium Chloride (Vancocin) 1 gm in 200 mls @ 133.333 mls/hr IVPB DAILY@1300 [facility] Stop: 11/08/16 13:01 Last Admin: 11/04/16 13:35 Dose: 133.333 mls/hr Sodium Chloride (Sodium Chloride 0.9%) 1,000 mls @ 30 mls/hr IV .Q24H [facility] Last Admin: 11/03/16 19:19 Dose: 30 mls/hr Insulin Aspart (Novolog) 0 unit SC ACHS [facility] PRN Reason: Protocol Last Admin: 11/04/16 13:38 Dose: Not Given Insulin Glargine (Lantus) 15 unit SC HS [facility] Last Admin: 11/03/16 21:48 Dose: 15 units Levetiracetam (Keppra) 250 mg PO BID [facility] Levothyroxine Sodium (Synthroid) 100 mcg PO DAILY@0630 [facility] Last Admin: 11/04/16 07:08 Dose: 100 mcg Rosuvastatin Calcium (Crestor) 20 mg PO HS [facility] Last Admin: 11/03/16 21:49 Dose: 20 mg - Labs Labs: 11/04/16 10:26 11/04/16 10:26 PT 11.7 SECONDS (9.7-12.2) 11/02/16 21:13 INR 1.0 11/02/16 21:13 APTT 24 SECONDS (21-34) 11/02/16 21:13 - Neurological Exam Neurological Exam: Alert, Awake, CN II-XII Intact Neuro motor strength exam: Left Upper Extremity: 4, Right Upper Extremity: 4, Left Lower Extremity: 4, Right Lower Extremity: 4 Additional comments: Neurologically appeared better today with no focal deficits. Mental status was slightly improved. Strength and sensation were symmetrical. 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 Will start Keppra 250 mg BID since she is already on gabapentin to avoid over- suppression of her mental status. Follow up with outpatient neurology. Status: Resolved
--- NOTE | 2016-11-04 17:40 | CP.PCM.PN ---
<Edin Gomez - Last Filed: 11/04/16 17:37> Subjective - Date & Time of Evaluation Date of Evaluation: 11/04/16 Time of Evaluation: 07:50 - Subjective Subjective: PGY-[address] Gali Rubio Patient seen and examined at bedside. Patient reports feeling fine. Patient denies fevers, chills, headache, changes in vision, dysphagia, odynophagia, nasal congestionchest pain, SOB, abdominal pain, dysuria. Objective - Vital Signs/Intake and Output Vital Signs (last 24 hours): Temp Pulse Resp BP Pulse Ox 98.0 F 80 18 114/60 98 11/04/16 09:20 11/04/16 09:20 11/04/16 09:20 11/04/16 09:20 11/04/16 09:20 - Medications Medications: Current Medications Amlodipine Besylate (Norvasc) 5 mg PO DAILY [facility] Aspirin (Aspirin Chewable) 81 mg PO DAILY [facility] Last Admin: 11/04/16 09:52 Dose: 81 mg Gabapentin (Neurontin) 300 mg PO BID [facility] Last Admin: 11/04/16 17:15 Dose: 300 mg Heparin Sodium (Porcine) (Heparin) 5,000 units SC Q12 [facility] Last Admin: 11/04/16 09:52 Dose: 5,000 units Piperacillin Sod/Tazobactam Sod (Zosyn 2.25 Gm Iv Premix) 2.25 gm in 50 mls @ 100 mls/hr IVPB Q6 [facility] Last Admin: 11/04/16 17:15 Dose: 100 mls/hr Vancomycin/Sodium Chloride (Vancocin) 1 gm in 200 mls @ 133.333 mls/hr IVPB DAILY@1300 [facility] Stop: 11/08/16 13:01 Last Admin: 11/04/16 13:35 Dose: 133.333 mls/hr Sodium Chloride (Sodium Chloride 0.9%) 1,000 mls @ 30 mls/hr IV .Q24H [facility] Last Admin: 11/03/16 19:19 Dose: 30 mls/hr Insulin Aspart (Novolog) 0 unit SC ACHS [facility] PRN Reason: Protocol Last Admin: 11/04/16 17:15 Dose: 2 unit Insulin Glargine (Lantus) 15 unit SC HS [facility] Last Admin: 11/03/16 21:48 Dose: 15 units Levetiracetam (Keppra) 250 mg PO BID [facility] Last Admin: 11/04/16 17:15 Dose: 250 mg Levothyroxine Sodium (Synthroid) 100 mcg PO DAILY@0630 [facility] Last Admin: 11/04/16 07:08 Dose: 100 mcg Rosuvastatin Calcium (Crestor) 20 mg PO HS [facility] Last Admin: 11/03/16 21:49 Dose: 20 mg - Labs Labs: PT 11.7 SECONDS (9.7-12.2) 11/02/16 21:13 INR 1.0 11/02/16 21:13 APTT 24 SECONDS (21-34) 11/02/16 21:13 - Constitutional Appears: No Acute Distress - Head Exam Head Exam: ATRAUMATIC, NORMAL INSPECTION, NORMOCEPHALIC - Eye Exam Eye Exam: EOMI, PERRL - ENT Exam ENT Exam: Mucous Membranes Moist - Respiratory Exam Respiratory Exam: Clear to Ausculation Bilateral - Cardiovascular Exam Cardiovascular Exam: REGULAR RHYTHM, +S1, +S2 - GI/Abdominal Exam GI & Abdominal Exam: Soft, Normal Bowel Sounds. absent: Tenderness - Extremities Exam Extremities Exam: absent: Pedal Edema, Tenderness - Neurological Exam Neurological Exam: Alert, Awake, Oriented x3 - Skin Skin Exam: Dry, Intact, Normal Color, Warm Assessment and Plan - Assessment and Plan (Free Text) Plan: Suspected CVA Code Stroke called in the ED Initial weakness and aphasia - Resolving Head CT- atrophy and small vessel disease; No apparent evidence of brain bleed. Refer to full report. F/U MRI, MRA, carotid studies -Lipid panel Triglycerides 165, WNL -ASA 81mg po daily, Crestor 20mg PO HS -NPO until patient passes speech / swallow eval -Fall risk, Aspiration precautions, PT/OT -Neurocheck q[address] Sullivan EEG revealed right temporal and parietal lobe epileptiform discharges most notable with photic stimulation. -Started on Keppra 250 mg PO BID UTI UA positive Urine culture revealed gram negative rods f/u blood culture Vancomycin and Zosyn Uncontrolled Diabetes -HgbA1c 8.4 on admission, decreased from 9.6 on prior admission -Novolog ISS low dose -Accuchecks -Neurontin 300mg po bid -Lantus 15U hs -Will hold on Glipizide as patient is not currently eating. History of Hypercholesterolemia -Lipid panel WNL on admission -Crestor 10mg po hs History of Hypothyroidism -Synthroid 100mcg po daily Prophylactic Measure -GI Prophylaxis not currently indicated -Heparin SC Q12 -SCDs -Neurochecks Case discussed with Dr. Gali Gomez PGY1 <Jacobo Rubio - Last Filed: 11/04/16 20:20> Objective - Vital Signs/Intake and Output Vital Signs (last 24 hours): Temp Pulse Resp BP Pulse Ox 97.5 F L 74 18 139/73 96 11/04/16 17:59 11/04/16 17:59 11/04/16 17:59 11/04/16 17:59 11/04/16 17:59 - Medications Medications: Current Medications Amlodipine Besylate (Norvasc) 5 mg PO DAILY [facility] Last Admin: 11/04/16 18:49 Dose: 5 mg Aspirin (Aspirin Chewable) 81 mg PO DAILY [facility] Last Admin: 11/04/16 09:52 Dose: 81 mg Gabapentin (Neurontin) 300 mg PO BID [facility] Last Admin: 11/04/16 17:15 Dose: 300 mg Heparin Sodium (Porcine) (Heparin) 5,000 units SC Q12 [facility] Last Admin: 11/04/16 09:52 Dose: 5,000 units Piperacillin Sod/Tazobactam Sod (Zosyn 2.25 Gm Iv Premix) 2.25 gm in 50 mls @ 100 mls/hr IVPB Q6 [facility] Last Admin: 11/04/16 17:15 Dose: 100 mls/hr Vancomycin/Sodium Chloride (Vancocin) 1 gm in 200 mls @ 133.333 mls/hr IVPB DAILY@1300 [facility] Stop: 11/08/16 13:01 Last Admin: 11/04/16 13:35 Dose: 133.333 mls/hr Sodium Chloride (Sodium Chloride 0.9%) 1,000 mls @ 30 mls/hr IV .Q24H [facility] Last Admin: 11/04/16 18:49 Dose: 30 mls/hr Insulin Aspart (Novolog) 0 unit SC ACHS [facility] PRN Reason: Protocol Last Admin: 11/04/16 17:15 Dose: 2 unit Insulin Glargine (Lantus) 15 unit SC HS [facility] Last Admin: 11/03/16 21:48 Dose: 15 units Levetiracetam (Keppra) 250 mg PO BID [facility] Last Admin: 11/04/16 17:15 Dose: 250 mg Levothyroxine Sodium (Synthroid) 100 mcg PO DAILY@0630 [facility] Last Admin: 11/04/16 07:08 Dose: 100 mcg Rosuvastatin Calcium (Crestor) 20 mg PO HS [facility] Last Admin: 11/03/16 21:49 Dose: 20 mg - Labs Labs: PT 11.7 SECONDS (9.7-12.2) 11/02/16 21:13 INR 1.0 11/02/16 21:13 APTT 24 SECONDS (21-34) 11/02/16 21:13 Attending/Attestation - Attestation I have personally seen and examined this patient.: Yes I have fully participated in the care of the patient.: Yes I have reviewed all pertinent clinical information, including history, physical exam and plan: Yes Notes (Text): 11/04/16 20:05 Patient was seen and examined at 4 PM 11/04/16 with [facility] Medical Student Dianna Armendariz ROS: Patient answers NO to full ROS Patient's Priscila Beebe [phone] was present during the entire exam. He explained that the patient's mental status is at baseline as well as her speaking ability and there are no current signs of aphasia. also went on to explain that the patient is able to get around at home with the use of cane. However he does bath her, at times will have to help change her after she has had a bowel movement or urinated, and helps her with most of the ADL. He also stated that she is frequently confused. Exam: General: She is awake, alert, and following commands but could not information as to why she was here, the day/date/month, and believes it is 2015 HEENT: EOMI, PERRLA, NO cervical lymphadenopathy, Right Carotid and Left Carotid Bruits, NO pharyngeal erythema/exudate, NO thyromegaly Cardio: NS1 and NS2, NO M/R/G Resp: CTA B/L, NO R/R/W GI: BSx4, Soft, NT, ND, NO HSM, NO guarding/rebound tenderness Ext: NO edema, Capillary Refill is 2 seconds, Pulses are strong and equal Neuro: CN II through XII are grossly intact Assessments: 1). Change in Mental Status/Confusion As mentioned above explains that the patient is now back at baseline Episode that initiated to bring patient to the ER as described in H&P, likely secondary to Seizure and/or UTI (please see below). 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 2). Seizures EEG shows evidence of Seizure Activity in the Right Parietal/Temporal area as per my conversation with Neurologist Dr. Sullivan today who was also present at the end of the exam. Keppra 250 mg PO 2x/day 3). UTI This is likely Await results of Urine Culture Blood Culture is negative to date Carrol and Philip 4). Leukocytosis Likely secondary to the UTI 5). DM 2 Aspart ISS Lantus 15 units SC QHS 6). Hypothyroid Levothyroxine 100 mcg PO 1x/day 7). HLD Crestor 20 mg PO QHS 8). HTN Norvasc 5 mg PO 1x/day I spoke with both ID Dr. Rodgers and Neurology Dr. Sullivan concerning this patient. Patient's was updated as to the above. He states that he wishes to take patient home when she is stable for discharge and does not desire NO which I recommended. Manager Utility Mayela was updated as to 's request. Jacobo Rubio D.O.
[2016-11-04] MEDS: Sodium Chloride 0.9% 1,000 ML IV SCH (18:49)
[2016-11-04] MEDS: (Lantus) Insulin Glargine, Recombinant SC SCH (21:51)
[2016-11-05] MEDS: Piperacill/Tazo 2.25gm in Dex 2.25 GM/50 ML BAG IVPB SCH ×2 (00:27→05:07)
[2016-11-05] MEDS: Levothyroxine 100 MCG TAB PO SCH (05:35)
--- NOTE | 2016-11-05 06:39 | CON ---
INFECTIOUS DISEASE CONSULTATION REQUESTED BY: Dr. Jacobo Rubio. HISTORY OF PRESENT ILLNESS: This patient is an 81-year-old female, she was admitted with weakness and aphasia. She was admitted on 11/03/2016 yesterday with diabetes, hyperlipidemia, hyperthyroidism and arthritis. She was recently here with the UTI and her says that she was having some weakness and was found to be confused, aphasic around 7:00 p.m. and was bought to the emergency room. She was not able to speak or move her extremities. She was here with similar complaints last time, patient was bought here via EMS. She admitted to having a left frontal headache and also was having dysuria and shortness of breath on her last admission and was found to have E. coli in the urine. I was asked to evaluate for sepsis, thus they found her lactate level to be high and she has previous surgery of carotid endarterectomy on the left side by Dr. Thomas. FAMILY HISTORY: Noncontributory; however, the says that the patient has been unstable and he has been cleaning in the bed as is not able to take a shower on her own; however, she is able to ambulate little bit with restraints. MEDICATIONS: She was on aspirin, Lantus, Neurontin, Synthroid, glipizide and Lipitor. PAST MEDICAL HISTORY: Significant for admission for similar complaints in August. REVIEW OF SYSTEMS: Noted from the admission, she had no headache, no weakness. She was not able to communicate and was not talking. She did had abnormal gait, headache and weakness. There is no respiratory symptoms reported for shortness of breath. No cough, cold or any fevers going on. No chest pain. No nausea or vomiting or abdominal pain and she does have;however, weakness and walks with a cane which has been present from before. SOCIAL HISTORY: Negative for smoking or drinking or any drug abuse and she does have hypertension, hypercholesterolemia,hyperthyroidism, arthritis, and had UTI before, has had carotid endarterectomy. She lives with her and she has very decreased mobility and ambulates with a cane. ALLERGIES: SHE IS NOT ALLERGIC TO ANY MEDICINE. She has been on vancomycin as well as Zosyn from yesterday and we were giving a lower dose. PHYSICAL EXAMINATION: VITAL SIGNS: Her T-max was 97.5, pulse 74, blood pressure 139/73 and respirations 18. HEENT: Head was atraumatic and normocephalic. She was more alert, awake. She was moving all her extremities. Pupils were reacting to light. Tongue was moist. NECK: Supple. There was a left carotid endarterectomy. No bruit present. HEART: S1 and S2 is regular. No murmur appreciated. LUNGS: Clear. No crackles or rales present. ABDOMEN: Soft and nontender. No guarding, no rigidity present. EXTREMITIES: No edema, clubbing or cyanosis. LABORATORY DATA: Neurologist came in at the same time and reported that she is probably having seizures as there were seizure activity on the EEG and white count is today 8.7, hemoglobin 11.3, hematocrit 33.3. BUN is 17 and creatinine is 1.1. Urine culture has shown gram negative rods right now, so we are going to wait for the sensitivity and PLANNING ASSOCIATE and I would continue with the vancomycin and Zosyn at this time. IMPRESSION: She is admitted in and they were looking for the MRA reports and showed mild right and minimal left internal carotid artery stenosis, trace right and middle left carotid bulb placed, distended cervical vertebral artery segment artifact and limited evaluation bilaterally and the head MRA shows potential moderate stenosis of the left proximal skull base ICA segment through this may be artifactual from the skull base intrinsically. MR angiography of the brain otherwise appears unremarkable. She does have some carotid disease and has a seizure disorder and is being treated for urinary tract infection. At this time I will follow her chest x-ray. Chest x-ray shows diffuse increase interstitial marking suggestive for infiltrate and/or edema, most likely consolidative changes in right lung apex and left lung base. We will follow. Lucila Rodgers MD
[2016-11-05 08:18] LABS: BASO # 0.1 K/uL (0.0-0.2); BASO % 0.9 % (0.0-2.0); EOS # 0.2 K/uL (0.0-0.7); HEMATOCRIT 29.8 % (34.0-47.0); LYMPH # 1.9 K/uL (1.0-4.3); LYMPH % 31.1 % (20.0-40.0); MEAN CELL VOLUME 96.9 fL (81.0-99.0); MEAN CORPUSCULAR HEMOGLOBIN 33.1 pg (27.0-31.0); MEAN CORPUSCULAR HGB CONC 34.2 g/dL (33.0-37.0); MEAN PLATELET VOLUME 8.5 fL (7.2-11.7); MONO # 0.4 K/uL (0.0-0.8); MONO % 7.5 % (0.0-10.0)
[2016-11-05 08:31] LABS: CHLORIDE 107 mmol/L (98-107)
[2016-11-05 08:32] LABS: POTASSIUM 3.5 mmol/L (3.6-5.2); SODIUM 138 mmol/L (132-148)
[2016-11-05 08:34] LABS: ALB/GLOB RATIO 0.8 (1.0-2.1); ALKALINE PHOSPHATASE 92 U/L (38-126); ALT/SGPT 44 U/L (9-52); AST/SGOT 47 U/L (14-36); BLOOD UREA NITROGEN 15 mg/dL (7-17); CARBON DIOXIDE 21 mmol/L (22-30); GFR AFRICAN-AMERICAN > 60; GLUCOSE,RANDOM 107 mg/dL (65-105); TOTAL PROTEIN 6.6 g/dL (6.3-8.3)
[2016-11-05 08:35] LABS: CALCIUM 7.8 mg/dl (8.6-10.4)
[2016-11-05] MEDS ORDERED: Potassium Chloride 20 mEq/15 ml LIQ UD PO ONE (09:03)
[2016-11-05] MEDS: (Novolog) Insulin Aspart, Recombinant 100 u/ml 10 ml vial SC SCH ×4 (09:19→21:36)
[2016-11-05] MEDS ORDERED: Potassium Chloride 20 mEq ER Tab PO SCH (10:00)
--- NOTE | 2016-11-05 10:59 | EEG ---
DATE: INDICATION FOR THE STUDY: Possible seizures. The patient's medications were reviewed. The condition of the recording was awake and drowsy EEG. DIAGNOSIS: Possible complex partial seizures. INTERPRETATION: This is a 16-channel international recording. The background activity was composed of 6-7 cycles per second. There was very little beta activity in the frontal leads. There was an increased amount of theta activity of 5-7 cycles per second consistent with sometimes generalized slowing. The right frontal leads were significantly slower than the left front leads. Sleep was not achieved stage I sleep or drowsiness was noted. Photic stimulation did create a more disorganized rhythm and was associated with increased right parietal and temporal epileptiform discharges as spike and wave discharges. CONCLUSION: This is an abnormal electroencephalogram due to the presence of diffuse slowing, worse on the right, as compared to the left. There was evidence of epileptiform discharges in the right parietal and temporal lobe regions. RECOMMENDATIONS: To start antiepileptic drugs for seizure prophylaxis since the patient does have a history of seizure-like activity. Deniz Sullivan MD
[2016-11-05] MEDS: Ciprofloxacin 400mg/200ml D5W 400 MG/200 ML BAG IVPB SCH ×2 (11:18→23:44)
--- NOTE | 2016-11-05 11:28 | CP.PCM.PN ---
Subjective - Date & Time of Evaluation Date of Evaluation: 11/05/16 Time of Evaluation: 10:00 - Subjective Subjective: PGY-[address] Gali Rubio Patient seen and examined at bedside. Patient reports feeling well. Patient has been eating food that her brought from home. Patient denies fevers, chills, chest pain, SOB, abdominal pain, headaches, weakness, dysuria. Objective - Vital Signs/Intake and Output Vital Signs (last 24 hours): Temp Pulse Resp BP Pulse Ox 98.1 F 74 20 106/53 L 95 11/05/16 07:01 11/05/16 10:00 11/05/16 07:01 11/05/16 07:01 11/05/16 07:01 Intake and Output: 11/05/16 11/05/16 06:59 18:59 Intake Total 660 Balance 660 - Medications Medications: Current Medications Amlodipine Besylate (Norvasc) 5 mg PO DAILY [facility] Last Admin: 11/05/16 09:19 Dose: 5 mg Aspirin (Aspirin Chewable) 81 mg PO DAILY [facility] Last Admin: 11/05/16 09:19 Dose: 81 mg Gabapentin (Neurontin) 300 mg PO BID [facility] Last Admin: 11/05/16 09:19 Dose: 300 mg Heparin Sodium (Porcine) (Heparin) 5,000 units SC Q12 [facility] Last Admin: 11/05/16 09:19 Dose: 5,000 units Sodium Chloride (Sodium Chloride 0.9%) 1,000 mls @ 30 mls/hr IV .Q24H [facility] Last Admin: 11/04/16 18:49 Dose: 30 mls/hr Ciprofloxacin (Cipro 400mg/200ml Dsw) 400 mg in 200 mls @ 133 mls/hr IVPB Q12H [facility] Last Admin: 11/05/16 11:18 Dose: 133 mls/hr Insulin Aspart (Novolog) 0 unit SC ACHS [facility] PRN Reason: Protocol Last Admin: 11/05/16 09:19 Dose: 1 unit Insulin Glargine (Lantus) 15 unit SC HS [facility] Last Admin: 11/04/16 21:51 Dose: 15 units Levetiracetam (Keppra) 250 mg PO BID [facility] Last Admin: 11/05/16 09:19 Dose: 250 mg Levothyroxine Sodium (Synthroid) 100 mcg PO DAILY@0630 [facility] Last Admin: 11/05/16 05:35 Dose: 100 mcg Potassium Chloride (K-Dur 20 Meq Er Tab) 20 meq PO DAILY [facility] Last Admin: 11/05/16 09:52 Dose: 20 meq Rosuvastatin Calcium (Crestor) 20 mg PO HS [facility] Last Admin: 11/04/16 21:51 Dose: 20 mg - Labs Labs: 11/05/16 08:04 11/05/16 08:04 PT 11.7 SECONDS (9.7-12.2) 11/02/16 21:13 INR 1.0 11/02/16 21:13 APTT 24 SECONDS (21-34) 11/02/16 21:13 - Constitutional Appears: No Acute Distress - Head Exam Head Exam: ATRAUMATIC, NORMAL INSPECTION, NORMOCEPHALIC - Eye Exam Eye Exam: EOMI, PERRL - ENT Exam ENT Exam: Mucous Membranes Moist - Respiratory Exam Respiratory Exam: Clear to Ausculation Bilateral. absent: Rales, Rhonchi, Wheezes - Cardiovascular Exam Cardiovascular Exam: REGULAR RHYTHM, +S1, +S2 - GI/Abdominal Exam GI & Abdominal Exam: Soft, Normal Bowel Sounds. absent: Tenderness - Back Exam Back Exam: absent: CVA tenderness (L), CVA tenderness (R) - Neurological Exam Neurological Exam: Alert, Awake, Oriented x3 - Skin Skin Exam: Dry, Intact, Normal Color, Warm Assessment and Plan - Assessment and Plan (Free Text) Plan: Suspected CVA but ruled out Code Stroke called in the ED Initial weakness and aphasia - Resolving Head CT- atrophy and small vessel disease; No apparent evidence of brain bleed. Refer to full report. F/U MRI, MRA, carotid studies -Lipid panel Triglycerides 165, WNL -ASA 81mg po daily, Crestor 20mg PO HS -NPO until patient passes speech / swallow eval -Fall risk, Aspiration precautions, PT/OT -Neurocheck q[address] Sullivan EEG revealed right temporal and parietal lobe epileptiform discharges most notable with photic stimulation. -Started on Keppra 250 mg PO BID since 11/04/16 UTI UA positive Urine culture revealed E.coli Blood culture negative Vancomycin and Zosyn discontinued on 11/05 and replaced with Ciprofloxacin 400 mg IV Q12H Uncontrolled Diabetes -HgbA1c 8.4 on admission, decreased from 9.6 on prior admission -Novolog ISS low dose -Accuchecks -Neurontin 300mg po bid -Lantus 15U hs -Will hold on Glipizide as patient is not currently eating. History of Hypercholesterolemia -Lipid panel WNL on admission -Crestor 10mg po hs History of Hypothyroidism -Synthroid 100mcg po daily Prophylactic Measure -GI Prophylaxis not currently indicated -Heparin SC Q12 -SCDs -Neurochecks Prescriptions prepared for Home RN and Home PT in anticipation of possible discharge over the weekend. Case discussed with Dr. Gali Gomez PGY1
--- NOTE | 2016-11-05 18:16 | CP.PCM.PN ---
Subjective - Date & Time of Evaluation Date of Evaluation: 11/05/16 Time of Evaluation: 04:15 - Subjective Subjective: dictated Objective - Vital Signs/Intake and Output Vital Signs (last 24 hours): Temp Pulse Resp BP Pulse Ox 98.1 F 68 20 108/57 L 100 11/05/16 16:00 11/05/16 16:00 11/05/16 16:00 11/05/16 16:00 11/05/16 16:00 Intake and Output: 11/05/16 11/05/16 06:59 18:59 Intake Total 660 Balance 660 - Medications Medications: Current Medications Amlodipine Besylate (Norvasc) 5 mg PO DAILY [facility] Last Admin: 11/05/16 09:19 Dose: 5 mg Aspirin (Aspirin Chewable) 81 mg PO DAILY [facility] Last Admin: 11/05/16 09:19 Dose: 81 mg Gabapentin (Neurontin) 300 mg PO BID [facility] Last Admin: 11/05/16 17:32 Dose: 300 mg Heparin Sodium (Porcine) (Heparin) 5,000 units SC Q12 [facility] Last Admin: 11/05/16 09:19 Dose: 5,000 units Sodium Chloride (Sodium Chloride 0.9%) 1,000 mls @ 30 mls/hr IV .Q24H [facility] Last Admin: 11/04/16 18:49 Dose: 30 mls/hr Ciprofloxacin (Cipro 400mg/200ml Dsw) 400 mg in 200 mls @ 133 mls/hr IVPB Q12H [facility] Last Admin: 11/05/16 11:18 Dose: 133 mls/hr Insulin Aspart (Novolog) [address] [facility] PRN Reason: Protocol Last Admin: 11/05/16 17:32 Dose: 2 unit Insulin Glargine (Lantus) 15 unit SC HS [facility] Last Admin: 11/04/16 21:51 Dose: 15 units Levetiracetam (Keppra) 250 mg PO BID [facility] Last Admin: 11/05/16 17:32 Dose: 250 mg Levothyroxine Sodium (Synthroid) 100 mcg PO DAILY@0630 [facility] Last Admin: 11/05/16 05:35 Dose: 100 mcg Potassium Chloride (K-Dur 20 Meq Er Tab) 20 meq PO DAILY [facility] Last Admin: 11/05/16 09:52 Dose: 20 meq Rosuvastatin Calcium (Crestor) 20 mg PO [facility] Last Admin: 11/04/16 21:51 Dose: 20 mg - Labs Labs: 11/05/16 08:04 11/05/16 08:04 PT 11.7 SECONDS (9.7-12.2) 11/02/16 21:13 INR 1.0 11/02/16 21:13 APTT 24 SECONDS (21-34) 11/02/16 21:13
[2016-11-05] MEDS: Sodium Chloride 0.9% 1,000 ML IV SCH (21:36)
[2016-11-05] MEDS: (Lantus) Insulin Glargine, Recombinant SC SCH (21:37)
--- NOTE | 2016-11-05 23:59 | PN ---
SUBJECTIVE: The patient was more alert. She states she did some physical therapy. She is moving all her extremities. No new seizures were reported. Her urine culture did come out to be gram-negative and has E. coli and it is sensitive to Cipro, hence the attending has changed the antibiotic to Cipro, which I agree with and then once she is ready for rehab, we treat this UTI for 5 days. PHYSICAL EXAMINATION VITAL SIGNS: T-max is 98.1, pulse is 68, blood pressure 108/57 and respirations are 20. HEENT: Head is atraumatic and normocephalic. NECK: Supple. LUNGS: Clear. No crackles or rales are heard. HEART: S1 and S2, regular. ABDOMEN: Soft and nontender. No guarding. No rigidity present. EXTREMITIES: No edema, clubbing or cyanosis. LABORATORY DATA: Her white count is 6, hemoglobin 10.2, she remains anemic. BUN is 15, creatinine is 1.0. Urine has E. coli sensitive to Cipro, which she is going to get. ASSESSMENT AND PLAN: She was worked for altered mental status and has seizure disorder, and has had urinary tract infection at this time and will probably go to rehab. Lucila Rodgers MD
[2016-11-06] MEDS: Levothyroxine 100 MCG TAB PO SCH (05:33)
[2016-11-06 07:20] LABS: BASO # 0.1 K/uL (0.0-0.2); EOS # 0.2 K/uL (0.0-0.7); EOS % 3.7 % (0.0-4.0); HEMATOCRIT 29.7 % (34.0-47.0); LYMPH # 1.7 K/uL (1.0-4.3); LYMPH % 31.6 % (20.0-40.0); MEAN CELL VOLUME 97.3 fL (81.0-99.0); MEAN CORPUSCULAR HEMOGLOBIN 33.8 pg (27.0-31.0); MEAN CORPUSCULAR HGB CONC 34.7 g/dL (33.0-37.0); MEAN PLATELET VOLUME 8.1 fL (7.2-11.7); MONO # 0.4 K/uL (0.0-0.8); MONO % 7.6 % (0.0-10.0); NRBC % 0.1 % (0.0-2.0); RED CELL DISTRIBUTION WIDTH 14.2 % (11.5-14.5); WHITE BLOOD COUNT 5.3 K/uL (4.8-10.8)
[2016-11-06] MEDS: (Novolog) Insulin Aspart, Recombinant 100 u/ml 10 ml vial SC SCH ×4 (07:31→21:34)
[2016-11-06 07:39] LABS: CHLORIDE 109 mmol/L (98-107)
[2016-11-06 07:40] LABS: SODIUM 140 mmol/L (132-148)
[2016-11-06 07:42] LABS: ALB/GLOB RATIO 0.9 (1.0-2.1); ALKALINE PHOSPHATASE 114 U/L (38-126); ALT/SGPT 50 U/L (9-52); AST/SGOT 44 U/L (14-36); BILIRUBIN,TOTAL 0.7 mg/dL (0.2-1.3); BLOOD UREA NITROGEN 11 mg/dL (7-17); CARBON DIOXIDE 19 mmol/L (22-30); GFR AFRICAN-AMERICAN > 60; TOTAL PROTEIN 7.3 g/dL (6.3-8.3)
[2016-11-06 07:43] LABS: GLUCOSE,RANDOM 137 mg/dL (65-105)
[2016-11-06 07:47] LABS: POTASSIUM 4.4 mmol/L (3.6-5.2)
[2016-11-06] MEDS: Ciprofloxacin 400mg/200ml D5W 400 MG/200 ML BAG IVPB SCH ×2 (12:38→23:01)
--- NOTE | 2016-11-06 15:47 | CP.PCM.PN ---
<Romulo Mckeon - Last Filed: 11/06/16 15:47> Subjective - Date & Time of Evaluation Date of Evaluation: 11/06/16 Time of Evaluation: 09:10 Objective - Vital Signs/Intake and Output Vital Signs (last 24 hours): Temp Pulse Resp BP Pulse Ox 97.7 F 74 18 169/75 H 100 11/06/16 07:05 11/06/16 10:00 11/06/16 07:05 11/06/16 07:05 11/06/16 07:05 Intake and Output: 11/06/16 11/06/16 06:59 18:59 Intake Total 760 Output Total 600 Balance 160 - Medications Medications: Current Medications Amlodipine Besylate (Norvasc) 5 mg PO DAILY [facility] Last Admin: 11/06/16 09:55 Dose: 5 mg Aspirin (Aspirin Chewable) 81 mg PO DAILY [facility] Last Admin: 11/06/16 09:55 Dose: 81 mg Gabapentin (Neurontin) 300 mg PO BID [facility] Last Admin: 11/06/16 09:55 Dose: 300 mg Ciprofloxacin (Cipro 400mg/200ml Dsw) 400 mg in 200 mls @ 133 mls/hr IVPB Q12H [facility] Last Admin: 11/06/16 12:38 Dose: 133 mls/hr Insulin Aspart (Novolog) 0 unit SC [facility] PRN Reason: Protocol Last Admin: 11/06/16 12:31 Dose: Not Given Insulin Glargine (Lantus) 15 unit SC [facility] Last Admin: 11/05/16 21:37 Dose: 15 units Levetiracetam (Keppra) 250 mg PO BID [facility] Last Admin: 11/06/16 09:55 Dose: 250 mg Levothyroxine Sodium (Synthroid) 100 mcg PO DAILY@0630 [facility] Last Admin: 11/06/16 05:33 Dose: 100 mcg Rosuvastatin Calcium (Crestor) 20 mg PO [facility] Last Admin: 11/05/16 21:37 Dose: 20 mg - Labs Labs: 11/06/16 07:08 11/06/16 07:08 PT 11.7 SECONDS (9.7-12.2) 11/02/16 21:13 INR 1.0 11/02/16 21:13 APTT 24 SECONDS (21-34) 11/02/16 21:13 <Jacobo Rubio - Last Filed: 11/06/16 20:02> Subjective - Subjective Subjective: Please see below Objective - Vital Signs/Intake and Output Vital Signs (last 24 hours): Temp Pulse Resp BP Pulse Ox 97.5 F L 79 18 103/58 L 98 11/06/16 16:00 11/06/16 16:45 11/06/16 16:00 11/06/16 16:00 11/06/16 16:00 - Medications Medications: Current Medications Amlodipine Besylate (Norvasc) 5 mg PO DAILY [facility] Last Admin: 11/06/16 09:55 Dose: 5 mg Aspirin (Aspirin Chewable) 81 mg PO DAILY [facility] Last Admin: 11/06/16 09:55 Dose: 81 mg Gabapentin (Neurontin) 300 mg PO BID [facility] Last Admin: 11/06/16 17:25 Dose: 300 mg Ciprofloxacin (Cipro 400mg/200ml Dsw) 400 mg in 200 mls @ 133 mls/hr IVPB Q12H [facility] Last Admin: 11/06/16 12:38 Dose: 133 mls/hr Insulin Aspart (Novolog) 0 unit SC [facility] PRN Reason: Protocol Last Admin: 11/06/16 17:25 Dose: 3 unit Insulin Glargine (Lantus) 15 unit SC [facility] Last Admin: 11/05/16 21:37 Dose: 15 units Lamotrigine (Lamictal) 25 mg PO BID [facility] Last Admin: 11/06/16 17:25 Dose: 25 mg Levothyroxine Sodium (Synthroid) 100 mcg PO DAILY@0630 [facility] Last Admin: 11/06/16 05:33 Dose: 100 mcg Rosuvastatin Calcium (Crestor) 20 mg PO [facility] Last Admin: 11/05/16 21:37 Dose: 20 mg Saccharomyces Boulardii (Florastor) 250 mg PO BID [facility] - Labs Labs: 11/06/16 07:08 11/06/16 07:08 PT 11.7 SECONDS (9.7-12.2) 11/02/16 21:13 INR 1.0 11/02/16 21:13 APTT 24 SECONDS (21-34) 11/02/16 21:13 Attending/Attestation - Attestation I have personally seen and examined this patient.: Yes I have fully participated in the care of the patient.: Yes I have reviewed all pertinent clinical information, including history, physical exam and plan: Yes Notes (Text): 11/06/16 19:47 Patient was seen and examined at 3 PM 11/06/16 with present ROS: Patient answers NO to full ROS Please note that patient appears to be angry and upset by having to be in the hospital (initially did not believe that she was in hospital but when I entered the room, she recognized me as the doctor caring for her and then believed that she was in the hospital). very concerned that the patient is much different than she was yesterday prior to starting the Keppra for her evidence of Seizure activity on EEG. She kept on repeating that she wanted to go home. After sitting down with her and explaining to her that we would likely be discharging her tomorrow she became less agitated but still withdrawn from the exam (yesterday she was very interactive at the time of my exam). Patient's Priscila Beebe [phone] was present during the entire exam. Exam: General: please see above HEENT: EOMI, PERRLA, NO cervical lymphadenopathy, Right Carotid and Left Carotid Bruits, NO pharyngeal erythema/exudate, NO thyromegaly Cardio: NS1 and NS2, NO M/R/G Resp: CTA B/L, NO R/R/W GI: BSx4, Soft, NT, ND, NO HSM, NO guarding/rebound tenderness Ext: NO edema, Capillary Refill is 2 seconds, Pulses are strong and equal Neuro: CN II through XII are grossly intact Assessments: 1). Change in Mental Status/Confusion explained that patient's baseline is episodes of confusion alternating with episodes of clarity Episode that initiated to bring patient to the ER as described in H&P, likely secondary to Seizure and/or UTI (please see below). 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 2). Seizures EEG shows evidence of Seizure Activity in the Right Parietal/Temporal area as per my conversation with Neurologist Dr. Sullivan 11/05/16 Keppra 250 mg PO 2x/day was started on 11/05/[address] Sullivan and explained the change I noticed in the patient and recommended discontinuation of the Keppra and starting of Lamictal 25 mg PO 2x/day and this was ordered. 3). UTI Urine Culture is positive of E. coli senstive to Ciprofloxacin which the patient is currently on. Blood Culture is negative to date 4). Leukocytosis Resolved 5). DM 2 Aspart ISS Lantus 15 units SC [facility] 6). Hypothyroid Levothyroxine 100 mcg PO 1x/day 7). HLD Crestor 20 mg PO QHS 8). HTN Norvasc 5 mg PO 1x/day 9). Mild Acidemia Monitor for now and follow up repeat labs 11/07/16. also went on to explain that the patient is able to get around at home with the use of cane. However he does bath her, at times will have to help change her after she has had a bowel movement or urinated, and helps her with most of the ADL. He also stated that she is frequently confused. does not want patient to go to [facility]. Electrogalvanizing Machine Operator Talia has contacted [facility] PT/OT and they were provided with patient's information and will be contacting to make arrangements for home PT/OT once the patient is discharged. If patient remains fever free, then will likely discharge her on 11/07/16. Jacobo Rubio D.O.
[2016-11-06] MEDS: (Lantus) Insulin Glargine, Recombinant SC SCH (21:40)
[2016-11-07] MEDS: Levothyroxine 100 MCG TAB PO SCH (05:49)
[2016-11-07 08:43] LABS: BASO # 0.1 K/uL (0.0-0.2); BASO % 1.1 % (0.0-2.0); EOS # 0.2 K/uL (0.0-0.7); EOS % 3.6 % (0.0-4.0); HEMATOCRIT 29.9 % (34.0-47.0); LYMPH # 1.8 K/uL (1.0-4.3); LYMPH % 34.3 % (20.0-40.0); MEAN CELL VOLUME 96.8 fL (81.0-99.0); MEAN CORPUSCULAR HEMOGLOBIN 33.5 pg (27.0-31.0); MEAN CORPUSCULAR HGB CONC 34.6 g/dL (33.0-37.0); MEAN PLATELET VOLUME 7.9 fL (7.2-11.7); MONO # 0.4 K/uL (0.0-0.8); MONO % 7.1 % (0.0-10.0); NRBC % 0.1 % (0.0-2.0); RED CELL DISTRIBUTION WIDTH 13.6 % (11.5-14.5); WHITE BLOOD COUNT 5.2 K/uL (4.8-10.8)
[2016-11-07] MEDS: (Novolog) Insulin Aspart, Recombinant 100 u/ml 10 ml vial SC SCH ×2 (08:45→13:45)
[2016-11-07 08:56] LABS: CHLORIDE 106 mmol/L (98-107); POTASSIUM 4.1 mmol/L (3.6-5.2); SODIUM 140 mmol/L (132-148)
[2016-11-07 08:58] LABS: ALB/GLOB RATIO 0.9 (1.0-2.1); AST/SGOT 33 U/L (14-36); BILIRUBIN,TOTAL 0.6 mg/dL (0.2-1.3); CARBON DIOXIDE 21 mmol/L (22-30); GFR AFRICAN-AMERICAN > 60; TOTAL PROTEIN 7.5 g/dL (6.3-8.3)
[2016-11-07 08:59] LABS: ALKALINE PHOSPHATASE 113 U/L (38-126); ALT/SGPT 43 U/L (9-52); BLOOD UREA NITROGEN 12 mg/dL (7-17); CALCIUM 9.5 mg/dl (8.6-10.4); GLUCOSE,RANDOM 165 mg/dL (65-105)
[2016-11-07] MEDS ORDERED: Saccharomyces Boulardi 250 mg Cap PO SCH (10:00)
[2016-11-07] MEDS: Ciprofloxacin 400mg/200ml D5W 400 MG/200 ML BAG IVPB SCH (11:03)
--- NOTE | 2016-11-07 15:05 | CP.PCM.PN ---
Subjective - Date & Time of Evaluation Date of Evaluation: 11/07/16 Time of Evaluation: 14:55 - Subjective Subjective: Patient was seen and examined at 2:55 PM 11/07/16 with present ROS: Patient answers NO to full ROS Please note that the patient appears to be back at her baseline and is no longer angry as she was upon yesterday's exam after Keppra was started. Patient's Priscila Beebe [phone] was present during the entire exam and stated that the patient is back at her baseline. Exam: General: please see above HEENT: EOMI, PERRLA, NO cervical lymphadenopathy, Right Carotid and Left Carotid Bruits, NO pharyngeal erythema/exudate, NO thyromegaly Cardio: NS1 and NS2, NO M/R/G Resp: CTA B/L, NO R/R/W GI: BSx4, Soft, NT, ND, NO HSM, NO guarding/rebound tenderness Ext: NO edema, Capillary Refill is 2 seconds, Pulses are strong and equal Neuro: CN II through XII are grossly intact Assessments: 1). Change in Mental Status/Confusion explained that patient's baseline is episodes of confusion alternating with episodes of clarity Episode that initiated to bring patient to the ER as described in H&P, likely secondary to Seizure and/or UTI (please see below). 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 2). Seizures EEG shows evidence of Seizure Activity in the Right Parietal/Temporal area as per my conversation with Neurologist Dr. Sullivan 11/05/16 Keppra 250 mg PO 2x/day was started on 11/05/[address] Sullivan and explained the change I noticed in the patient and recommended discontinuation of the Keppra and starting of Lamictal 25 mg PO 2x/day and this was ordered. 3). UTI Urine Culture is positive of E. coli senstive to Ciprofloxacin which the patient is currently on. Blood Culture is negative to date 4). Leukocytosis Resolved 5). DM 2 Aspart ISS Lantus 15 units SC [facility] 6). Hypothyroid Levothyroxine 100 mcg PO 1x/day 7). HLD Crestor 20 mg PO QHS 8). HTN Norvasc 5 mg PO 1x/day Controlled 9). Mild Acidemia Resolved Patient is tolerating the Lamictal better than the Keppra Vitals are stable She back at her baseline mental status Patient is stable for discharge The following instructions were explained to the and a copy of the instructions will be provided to him upon discharge: 1). Please follow up with your Primary Care Physician Dr. Renae before the end of this week. 2). You were provided with the following prescriptions. Please have them filled at your pharmacy and use as directed: Norvasc 5 mg, 1 tablet by mouth 1x/day (breakfast), Disp #30, NO refills Lamictal 25 mg, 1 tablet by mouth 2x/day (breakfast and dinner), Disp #30, NO refills Ciprofloxacin 500 mg, 1 tablet by mouth 2x/day until finished (breakfast and dinner), Disp #30, NO refills Toujeo Prefilled Pen, 15 units subcutaneous 2x/day (breakfast and dinner), Disp #1, NO refills 3). Please ask your pharmacist which probiotic he/she recommends and take at lunch time for the next 35 days. 4). Through your Primary Care Doctor Dr. Renae please obtain referral for consultation with Neurologist for monitoring of your Seizures. You were placed on a new medication called Lamictal for this issue. You did not do well with Keppra and that is why Keppra was discontinued. 5). Your Freelance Operator/Yeast Washer has made arrangements for Home Physical Therapy/Occupational Therapy with [facility] and [facility] will be contacting you in the next few days to make arrangements to come to your home. If you do not hear from them by 11/10/16 then please call your Freelance Operator Mayela at [facility] [phone]. 6). Please continue the following home medications which you stated you had enough of: Aspirin 81 mg, 1 tablet by mouth 1x/day Gabapentin 300 mg, 1 tablet by mouth 2x/day Levothyroxine 100 mcg, 1 tablet by mouth 1x/day Atorvastatin 40 mg, 1 tablet by mouth 1x/day Glipizide 10 mg, 1 tablet by mouth 1x/day 7). Please take care and be well. Jacobo Rubio D.O. Objective - Vital Signs/Intake and Output Vital Signs (last 24 hours): Temp Pulse Resp BP Pulse Ox 97 F L 74 20 130/67 97 11/07/16 08:39 11/07/16 08:39 11/07/16 08:39 11/07/16 08:39 11/07/16 08:39 Intake and Output: 11/07/16 11/07/16 06:59 18:59 Intake Total 740 Balance 740 - Medications Medications: Current Medications Amlodipine Besylate (Norvasc) 5 mg PO DAILY [facility] Last Admin: 11/07/16 11:03 Dose: 5 mg Aspirin (Aspirin Chewable) 81 mg PO DAILY [facility] Last Admin: 11/07/16 11:03 Dose: 81 mg Gabapentin (Neurontin) 300 mg PO BID [facility] Last Admin: 11/07/16 11:03 Dose: 300 mg Ciprofloxacin (Cipro 400mg/200ml Dsw) 400 mg in 200 mls @ 133 mls/hr IVPB Q12H [facility] Last Admin: 11/07/16 11:03 Dose: 133 mls/hr Insulin Aspart (Novolog) 0 unit SC [facility] PRN Reason: Protocol Last Admin: 11/07/16 13:45 Dose: 2 unit Insulin Glargine (Lantus) 15 unit SC [facility] Last Admin: 11/06/16 21:40 Dose: 15 units Lamotrigine (Lamictal) 25 mg PO BID [facility] Last Admin: 11/07/16 11:03 Dose: 25 mg Levothyroxine Sodium (Synthroid) 100 mcg PO DAILY@0630 [facility] Last Admin: 11/07/16 05:49 Dose: 100 mcg Rosuvastatin Calcium (Crestor) 20 mg PO HS [facility] Last Admin: 11/06/16 21:40 Dose: 20 mg Saccharomyces Boulardii (Florastor) 250 mg PO BID [facility] Last Admin: 11/07/16 11:03 Dose: 250 mg - Labs Labs: 11/07/16 08:20 11/07/16 08:20 PT 11.7 SECONDS (9.7-12.2) 11/02/16 21:13 INR 1.0 11/02/16 21:13 APTT 24 SECONDS (21-34) 11/02/16 21:13
[2016-11-07 16:11] VITALS: BP 126/71; PULSE 71; RESP 18; TEMP 97.8; O2SAT 98
--- NOTE | 2016-11-07 17:23 | CP.PCM.DIS ---
Provider - Provider Date of Admission: 11/04/16 16:25 Attending physician: Blair Tirado MD Primary care physician: PMD: Dr. Renae Consults: ID: Dr. Rodgers Neuro: Dr. Sullivan Time Spent in preparation of Discharge (in minutes): 40 Diagnosis - Discharge Diagnosis (1) UTI (urinary tract infection) Status: Resolved (2) TIA (transient ischemic attack) Status: Chronic (3) Acute encephalopathy Status: Resolved Priority: Medium Hospital Course - Lab Results Lab Results: Most Recent Lab Values WBC 5.2 K/uL (4.8-10.8) 11/07/16 08:20 RBC 3.08 Mil/uL (3.80-5.20) L 11/07/16 08:20 Hgb 10.3 g/dL (11.0-16.0) L 11/07/16 08:20 Hct 29.9 % (34.0-47.0) L 11/07/16 08:20 MCV 96.8 fL (81.0-99.0) 11/07/16 08:20 MCH 33.5 pg (27.0-31.0) H 11/07/16 08:20 MCHC 34.6 g/dL (33.0-37.0) 11/07/16 08:20 RDW 13.6 % (11.5-14.5) 11/07/16 08:20 Plt Count 220 K/uL (130-400) 11/07/16 08:20 MPV 7.9 fL (7.2-11.7) 11/07/16 08:20 Neut % (Auto) 53.9 % (50.0-75.0) 11/07/16 08:20 Lymph % (Auto) 34.3 % (20.0-40.0) 11/07/16 08:20 [place] % (Auto) 7.1 % (0.0-10.0) 11/07/16 08:20 Eos % (Auto) 3.6 % (0.0-4.0) 11/07/16 08:20 Baso % (Auto) 1.1 % (0.0-2.0) 11/07/16 08:20 Neut # 2.8 K/uL (1.8-7.0) 11/07/16 08:20 Lymph # 1.8 K/uL (1.0-4.3) 11/07/16 08:20 [place] # 0.4 K/uL (0.0-0.8) 11/07/16 08:20 Eos # 0.2 K/uL (0.0-0.7) 11/07/16 08:20 Baso # 0.1 K/uL (0.0-0.2) 11/07/16 08:20 PT 11.7 SECONDS (9.7-12.2) 11/02/16 21:13 INR 1.0 11/02/16 21:13 APTT 24 SECONDS (21-34) 11/02/16 21:13 pO2 29 mm/Hg (30-55) L 11/03/16 11:46 VBG pH 7.34 (7.32-7.43) 11/03/16 11:46 VBG pCO2 42 mmHg (40-60) 11/03/16 11:46 VBG HCO3 21.3 mmol/L 11/03/16 11:46 VBG Total CO2 24.0 mmol/L (22-28) 11/03/16 11:46 VBG O2 Sat (Calc) 61.6 % (40-65) 11/03/16 11:46 VBG Base Excess -3.0 mmol/L (0.0-2.0) L 11/03/16 11:46 VBG Potassium 4.4 mmol/L (3.6-5.2) 11/03/16 11:46 Sodium 138.0 mmol/l (132-148) 11/03/16 11:46 Chloride 111.0 mmol/L (98-107) H 11/03/16 11:46 Glucose 127 mg/dl (65-105) H 11/03/16 11:46 Lactate 1.8 mmol/L (0.7-2.1) 11/03/16 11:46 Sodium 140 mmol/L (132-148) 11/07/16 08:20 Potassium 4.1 mmol/L (3.6-5.2) 11/07/16 08:20 Chloride 106 mmol/L (98-107) 11/07/16 08:20 Carbon Dioxide 21 mmol/L (22-30) L 11/07/16 08:20 Anion Gap 17 (10-20) 11/07/16 08:20 BUN 12 mg/dL (7-17) 11/07/16 08:20 Creatinine 1.0 MG/DL (0.7-1.2) 11/07/16 08:20 Est GFR ( Amer) > 60 11/07/16 08:20 Est GFR (Non-Af Amer) 53 11/07/16 08:20 POC Glucose (mg/dL) 247 mg/dL (65-110) H 11/07/16 11:43 Random Glucose 165 mg/dL (65-105) H 11/07/16 08:20 Hemoglobin A1c 8.4 % (4.2-6.5) H 11/02/16 21:13 Calcium 9.5 mg/dl (8.6-10.4) 11/07/16 08:20 Phosphorus 4.2 mg/dL (2.5-4.5) 11/03/16 04:23 Magnesium 1.9 mg/dL (1.6-2.3) 11/03/16 04:23 Total Bilirubin 0.6 mg/dL (0.2-1.3) 11/07/16 08:20 AST 33 U/L (14-36) 11/07/16 08:20 ALT 43 U/L (9-52) 11/07/16 08:20 Alkaline Phosphatase 113 U/L (38-126) 11/07/16 08:20 Troponin I < 0.0120 ng/mL (0.00-0.120) 11/02/16 21:13 Total Protein 7.5 g/dL (6.3-8.3) 11/07/16 08:20 Albumin 3.5 g/dL (3.5-5.0) 11/07/16 08:20 Globulin 4.0 gm/dL (2.2-3.9) H 11/07/16 08:20 Albumin/Globulin Ratio 0.9 (1.0-2.1) L 11/07/16 08:20 Triglycerides 165 mg/dL (0-149) H D 11/02/16 21:13 Cholesterol 147 mg/dL (0-199) 11/02/16 21:13 LDL Cholesterol Direct 77 mg/dL (0-129) 11/02/16 21:13 HDL Cholesterol 46 mg/dL (30-70) 11/02/16 21:13 TSH 3rd Generation 0.08 mIU/L (0.46-4.68) L 11/03/16 11:25 Venous Blood Potassium 4.4 mmol/L (3.6-5.2) 11/03/16 11:46 Urine Color Yellow (YELLOW) 11/02/16 22:10 Urine Clarity Hazy (Clear) 11/02/16 22:10 Urine pH 6.0 (5.0-8.0) 11/02/16 22:10 Ur Specific [place] 1.010 (1.003-1.030) 11/02/16 22:10 Urine Protein 1+ mg/dL (NEGATIVE) H 11/02/16 22:10 Urine Glucose (UA) 2+ mg/dL (Normal) H 11/02/16 22:10 Urine Ketones Negative mg/dL (NEGATIVE) 11/02/16 22:10 Urine Blood 1+ (NEGATIVE) H 11/02/16 22:10 Urine Nitrate Positive (NEGATIVE) H 11/02/16 22:10 Urine Bilirubin Negative (NEGATIVE) 11/02/16 22:10 Urine Urobilinogen Normal mg/dL (0.2-1.0) 11/02/16 22:10 Ur Leukocyte Esterase 3+ [place]/uL (Negative) H 11/02/16 22:10 Urine WBC (Auto) 241 /hpf (0-5) H 11/02/16 22:10 Urine RBC (Auto) 5 /hpf (0-3) H 11/02/16 22:10 Urine WBC Clumps (Auto) Few /hpf (NONE) H 11/02/16 22:10 Ur Squamous Epith Cells < 1 /hpf (0-5) 11/02/16 22:10 Urine Bacteria Many (<OCC) H 11/02/16 22:10 Blood Type B POSITIVE 11/02/16 21:02 Antibody Screen Negative 11/02/16 21:02 - Hospital Course Hospital Course: 81 year old female with past medical history of Diabetes, Hyperlipidemia, Hypothyroidism and arthritis presents to [facility] ED on 11/07/16 with chief complaint of weakness and transient aphasia which occurred around 7 pm just prior to arrival in ED. Patient was found by her who stated patient was unable to speak nor move her arms. stated that his exhibited similar symptoms approximately two months ago and was evaluated in the hospital here. was concerned and thus dialed 911 and was transported here. states that his 's mouth appeared twisted initially when he first saw her, but then the presentation resolved. Patient admits to left sided frontal headache, shortness of breath, as well as dysuria and urinary frequency of approx 1 month duration. Upon admission, neurology was consulted. After reviewing MRI studies it was determined that patient may had a possible seizure activity. EEG was performed and showed evidence of Seizure Activity in the Right Parietal and Temporal area. Patient was started on Keppra , but due to patient's anger episodes, she was then changed to Lamitcal. Patient 's UTI was treated with vancomycin and zosyn initially but was changed to Cipro after culture showed higher sensitivity to cipro. Patient improved clinically at the end of her hospital course. Above is a brief summary of the patient's hospital course throughout this admission. Please see medical record for full report. The following instructions were explained to the and a copy of the instructions will be provided to him upon discharge: 1). Please follow up with your Primary Care Physician Dr. Renae before the end of this week. 2). You were provided with the following prescriptions. Please have them filled at your pharmacy and use as directed: Norvasc 5 mg, 1 tablet by mouth 1x/day (breakfast), Disp #30, NO refills Lamictal 25 mg, 1 tablet by mouth 2x/day (breakfast and dinner), Disp #30, NO refills Ciprofloxacin 500 mg, 1 tablet by mouth 2x/day until finished (breakfast and dinner), Disp #30, NO refills Toujeo Prefilled Pen, 15 units subcutaneous 2x/day (breakfast and dinner), Disp #1, NO refills 3). Please ask your pharmacist which probiotic he/she recommends and take at lunch time for the next 35 days. 4). Through your Primary Care Doctor Dr. Renae please obtain referral for consultation with Neurologist for monitoring of your Seizures. You were placed on a new medication called Lamictal for this issue. You did not do well with Keppra and that is why Keppra was discontinued. 5). Your [employer]/Claim Service Representative has made arrangements for Home Physical Therapy/Occupational Therapy with [facility] and [facility] will be contacting you in the next few days to make arrangements to come to your home. If you do not hear from them by 11/10/16 then please call your [employer] Head Mayela at [facility] [phone]. 6). Please continue the following home medications which you stated you had enough of: Aspirin 81 mg, 1 tablet by mouth 1x/day Gabapentin 300 mg, 1 tablet by mouth 2x/day Levothyroxine 100 mcg, 1 tablet by mouth 1x/day Atorvastatin 40 mg, 1 tablet by mouth 1x/day Glipizide 10 mg, 1 tablet by mouth 1x/day 7). Please take care and be well. Discharge instructions discussed with the patient and her . They agreed and understood with the plan. - Date & Time of H&P Date of H&P: 11/03/16 Time of H&P: 01:20 Discharge Exam - Head Exam Head Exam: ATRAUMATIC, NORMAL INSPECTION, NORMOCEPHALIC - Eye Exam Eye Exam: EOMI, Normal appearance Pupil Exam: NORMAL ACCOMODATION - ENT Exam ENT Exam: Mucous Membranes Moist - Neck Exam Neck exam: Normal Inspection - Respiratory Exam Respiratory Exam: Clear to PA & Lateral, NORMAL BREATHING PATTERN, UNREMARKABLE - Cardiovascular Exam Cardiovascular Exam: REGULAR RHYTHM, +S1, +S2 - GI/Abdominal Exam GI & Abdominal Exam: Normal Bowel Sounds, Soft - Extremities Exam Extremities exam: normal capillary refill, pedal pulses present - Neurological Exam Neurological exam: Alert, Oriented x3 - Psychiatric Exam Psychiatric exam: Normal Affect, Normal Mood - Skin Skin Exam: Dry, Normal Color, Warm Discharge Plan - Discharge Medications Prescriptions: amLODIPine [Norvasc] 5 mg PO DAILY #30 tab Ciprofloxacin HCl [Cipro] 500 mg PO BID #10 tablet Insulin Glargine,Hum.rec.anlog [Toujeo Solostar] 15 unit SQ BID #1 unit lamoTRIgine [Lamictal] 25 mg PO BID #60 tab - Follow Up Plan Condition: GOOD Disposition: HOME/ ROUTINE Instructions: Urinary Tract Infection in Women (DC), Urinary Tract Infection in Men (DC), Dysuria (GEN), Renal Failure Diet (DC), Syncope (DC), Syncope (GEN) Additional Instructions: The following instructions were explained to the and a copy of the instructions will be provided to him upon discharge: 1). Please follow up with your Primary Care Physician Dr. Renae before the end of this week. 2). You were provided with the following prescriptions. Please have them filled at your pharmacy and use as directed: Norvasc 5 mg, 1 tablet by mouth 1x/day (breakfast), Disp #30, NO refills Lamictal 25 mg, 1 tablet by mouth 2x/day (breakfast and dinner), Disp #30, NO refills Ciprofloxacin 500 mg, 1 tablet by mouth 2x/day until finished (breakfast and dinner), Disp #30, NO refills Toujeo Prefilled Pen, 15 units subcutaneous 2x/day (breakfast and dinner), Disp #1, NO refills 3). Please ask your pharmacist which probiotic he/she recommends and take at lunch time for the next 35 days. 4). Through your Primary Care Doctor Dr. Renae please obtain referral for consultation with Neurologist for monitoring of your Seizures. You were placed on a new medication called Lamictal for this issue. You did not do well with Keppra and that is why Keppra was discontinued. 5). Your [employer]/Claim Service Representative has made arrangements for Home Physical Therapy/Occupational Therapy with [facility] and [facility] will be contacting you in the next few days to make arrangements to come to your home. If you do not hear from them by 11/10/16 then please call your [employer] Head Mayela at [facility] [phone]. 6). Please continue the following home medications which you stated you had enough of: Aspirin 81 mg, 1 tablet by mouth 1x/day Gabapentin 300 mg, 1 tablet by mouth 2x/day Levothyroxine 100 mcg, 1 tablet by mouth 1x/day Atorvastatin 40 mg, 1 tablet by mouth 1x/day Glipizide 10 mg, 1 tablet by mouth 1x/day 7). Please take care and be well.
== END 2016-11-07 20:00 | disposition home or self-care (01) | DRG 100 ==
LOC: C.ER 20:31 → C.9E 22:41 → C.5T 11-03 09:50 → OBSVTOIN 11-04 16:25
PROVIDERS: ADMIT Family Medicine; ATTEND Family Medicine
DX: G40.209 Localization-related (focal) (partial) symptomatic epilepsy and epileptic syndromes with complex partial seizures, not intractable, without status epilepticus (principal); G93.40 Encephalopathy, unspecified; E87.2 Acidosis; E11.65 Type 2 diabetes mellitus with hyperglycemia; N39.0 Urinary tract infection, site not specified; R47.01 Aphasia; I10 Essential (primary) hypertension; B96.20 Unspecified Escherichia coli [E. coli] as the cause of diseases classified elsewhere; E03.9 Hypothyroidism, unspecified; E78.00 Pure hypercholesterolemia, unspecified; E78.5 Hyperlipidemia, unspecified; M19.90 Unspecified osteoarthritis, unspecified site; Z79.82 Long term (current) use of aspirin; Z79.84 Long term (current) use of oral hypoglycemic drugs; Z79.899 Other long term (current) drug therapy; Z86.73 Personal history of transient ischemic attack (TIA), and cerebral infarction without residual deficits; Z87.440 Personal history of urinary (tract) infections